=== PATIENT | male | born 1980 | race Caucasian/White ===

== ENCOUNTER 2019-04-03 14:25 | Emergency (ER) | payer OTHER, SELFPAY ==
[2019-04-03] MEDS ORDERED: NA CHLORIDE 0.9% 1,000 ML ONE ×2 (15:58→18:54)
[2019-04-03 16:16] LABS: Absolute Lymphocytes (CBC) 1.6 K/uL (0.7-4.9); Basophils % 0.6 % (0-1.3); Eosinophils % 0.2 % (0-4.4); Hematocrit 45.9 % (39.6-49.0); Lymphocytes % 15.9 % (15.3-44.8); MPV 8.4 fL (7.6-11.3); Monocytes % 8.8 % (3.3-12.3); RBC Red Blood Cell Count 4.97 M/uL (4.33-5.43)
[2019-04-03 16:21] LABS: Protime INR 1.08
[2019-04-03 16:42] LABS: ALT/SGPT 52 U/L (12-78); AST/SGOT 18 U/L (15-37); Albumin 4.7 g/dL (3.4-5.0); Alkaline Phosphatase 70 U/L (45-117); BUN Blood Urea Nitrogen 31 mg/dL (7-18); Bicarbonate 24 mmol/L (21-32); Bilirubin Direct 0.1 mg/dL (0-0.2); Bilirubin Total 0.6 mg/dL (0.2-1.0); Glucose Level 99 mg/dL (74-106); Potassium 3.5 mmol/L (3.5-5.1); Protein, Total 7.9 g/dL (6.4-8.2); Sodium Level 146 mmol/L (136-145)
[2019-04-03 16:45] LABS: Urine Blood NEGATIVE (NEG); Urine Glucose NEGATIVE (NEG); Urine Protein 2+ (NEG); Urine Specific Gravity >1.030 (1.005-1.030)
[2019-04-03 16:48] LABS: Lithium 0.2 mmol/L (0.6-1.2)
[2019-04-03 16:52] LABS: Salicylates Level < 1.7 mg/dL (2.8-20)
[2019-04-03 17:04] LABS: Barbiturates NEGATIVE (NEGATIVE); Benzodiazepines NEGATIVE (NEGATIVE); Cocaine NEGATIVE (NEGATIVE); METHAMPHETAM NEGATIVE (NEGATIVE); Methadone NEGATIVE (NEGATIVE); Opiates NEGATIVE (NEGATIVE); Phencyclidine NEGATIVE (NEGATIVE); THC Cannibis NEGATIVE (NEGATIVE)
[2019-04-03 17:09] LABS: Urine Bacteria <20 /HPF (NONE SEEN); Urine Culture Reflex Order NOT NEEDED; Urine Mucus 2+ /HPF (NONE SEEN); Urine RBC <5 /HPF (NONE SEEN)
--- NOTE | 2019-04-03 17:21 | RAD REPORT ---
EXAM DESCRIPTION: CT - Head Brain Wo Cont - 04/03/2019 5:16 pm CLINICAL HISTORY: PAIN Headache, drowsiness COMPARISON: No comparisons TECHNIQUE: All CT scans are performed using dose optimization technique as appropriate and may inclu de automated exposure control or mA/KV adjustment according to patient size. FINDINGS: No intracranial hemorrhage, hydrocephalus or extra-axial fluid collection.No areas of brai n edema or evidence of midline shift. The paranasal sinuses and mastoids are clear. The calvarium is intact. IMPRESSION: No acute intracranial abnormality.
[2019-04-03] MEDS ORDERED: lamoTRIgine 100 MG TAB PO ONE (19:00)
--- NOTE | 2019-04-04 09:37 | EKG ---
Test Date: 2019-04-03 Test Time: 16:06:10 Urologic Surgeon: OTTO MEASUREMENT RESULTS: Intervals: Rate: 97 IA: 140 QRSD: 80 QT: 358 QTc: 454 Premium: P: 53 IA: 140 QRS: 19 T: 0 INTERPRETIVE STATEMENTS: Normal sinus rhythm Possible Left atrial enlargement Borderline ECG No previous ECG available for comparison Electronically Signed On 04-04-19 09:35:48 CDT by Avni Whitney
[2019-04-04] MEDS ORDERED: SULFASALAZINE 500 MG E.C. TAB PO SCH (21:00)
[2019-04-04] MEDS ORDERED: LITHIUM CARBONATE 300 MG TAB PO SCH (21:00)
[2019-04-04] MEDS ORDERED: QUETIAPINE 100MG TAB PO SCH (21:00)
[2019-04-04] MEDS ORDERED: lamoTRIgine 100 MG TAB PO SCH (21:00)
[2019-04-05] MEDS ORDERED: FOLIC ACID 1 MG TABLET PO SCH (09:00)
[2019-04-05] MEDS ORDERED: LISINOPRIL 10 MG TAB PO SCH (09:00)
[2019-04-05] MEDS ORDERED: ACETAMINOPHEN 325 MG TABLET ONE (09:51)
--- NOTE | 2019-04-06 11:12 | ER ---
Nurse's Notes [facility] Name: Ravi Jaime Age: 38 yrs Sex: Male : 1980 Arrival Date: 04/03/2019 Time: 14:29 Bed 16 Private MD: Diagnosis: Altered mental status, unspecified;Schizoaffective disorder, unspecified Presentation: 04/03 14:48 Care prior to arrival: None. aa5 14:48 Presenting complaint: Presenting complaint: Pt's brother states "he was diagnosed with aa5 a schizoaffective disorder recently and was doing really good on his medicines for like a month but he stopped taking them and now he is all confused, I went to his house today and he didn't have any clothes on from the waist down and was acting confused". Pt currently alert and oriented x person at this time. 14:48 Transition of care: patient was not received from another setting of care. Onset of aa5 symptoms was April 03, 2019. 14:48 Acuity: GERALDINE 2 aa5 14:48 Method Of Arrival: Ambulatory aa5 15:17 Risk Assessment: Do you want to hurt yourself or someone else? Patient reports no mg2 desire to harm self or others. Initial Sepsis Screen: Does the patient meet any 2 criteria? No. Patient's initial sepsis screen is negative. Does the patient have a suspected source of infection? No. Patient's initial sepsis screen is negative. Historical: - Allergies: 14:56 No Known Allergies; aa5 - Home Meds: 14:56 sulfasalazine 500 mg Oral tab BID [Active]; lamotrigine 200 mg oral tab once daily aa5 [Active]; 04/04 14:28 lithium carbonate 300 mg oral cap 2 caps at night [Active]; Seroquel 100 mg oral tab sg 1.5 tab at night [Active]; 04/06 09:23 lisinopril 10 mg oral tab 1 tab once daily for Hypertension [Active]; omeprazole 40 mg tw2 oral cpDR 1 cap once daily [Active]; folic acid 1 mg oral tab 1 tab once daily [Active]; - PMHx: 04/03 14:56 Hypertension; Schizoaffective disorder; aa5 - Immunization history:: Adult Immunizations unknown. - Social history:: Smoking status: Patient/guardian denies using tobacco. - Ebola Screening: : No symptoms or risks identified at this time. Screenin:12 Abuse screen: Denies threats or abuse. Denies injuries from another. Nutritional mg2 screening: No deficits noted. Tuberculosis screening: No symptoms or risk factors identified. Fall Risk Secondary diagnosis (15 points) Schizoaffective disorder. Assessment: 15:15 General: Appears in no apparent distress. comfortable, Behavior is calm, cooperative. mg2 Pain: Denies pain. Neuro: Level of Consciousness is awake, alert, obeys commands, Oriented to person. Cardiovascular: Capillary refill < 3 seconds Patient's skin is warm and dry. Respiratory: Airway is patent Respiratory effort is even, unlabored, Respiratory pattern is regular, symmetrical. GI: No signs and/or symptoms were reported involving the gastrointestinal system. : No signs and/or symptoms were reported regarding the genitourinary system. EENT: No signs and/or symptoms were reported regarding the EENT system. Derm: Skin is intact, is healthy with good turgor, Skin is pink, warm \\T\\ dry. normal. Musculoskeletal: Circulation, motion, and sensation intact. Capillary refill < 3 seconds. 17:00 Reassessment: No changes from previously documented assessment. patient lying on bed. mg2 brother at bedside. 20:25 Reassessment: 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 family mg2 informed about the plan. 22:44 Reassessment: served dinner. patient ate his food with complete assistance by the mg2 sitter. not in distress. denies pain or any complaints. 22:46 Reassessment: [phone] ( brother). [facility] 23:57 Reassessment: [facility] and advised to be transferred to a psych facility. [facility] 04/04 07:18 Reassessment:. General: Appears comfortable. General: Patient is alert and oriented X 2 em5 (person and place ) able to recognize that it is morning time.. Cardiovascular: No deficits noted. Respiratory: No deficits noted. EENT: No deficits noted. 11:34 Reassessment: Patient verbalizing he wants to rest and sleep. Reoriented and directed em5 on how to lay down and void earlier. Fall precautions maintained.. 12:56 Reassessment: Patient is alert, oriented x 3, equal unlabored respirations, skin em5 warm/dry/pink. Patient denies pain at this time. Patient states feeling better. 12:56 General: Appears comfortable. em5 14:22 Reassessment: pt reports using [employer], notified. sg 15:19 Reassessment: Patient's home maintenance meds started as per Dr. Jensen. Home em5 medications reconciled. 18:34 Reassessment: Patient denies pain at this time. Endorsed to next shift that the em5 Lamictal, lithium and Seroquel are taken at bedtime. Patient's own meds endorsed or continuity of care. . General: Appears in no apparent distress. comfortable. 20:56 Reassessment: No changes from previously documented assessment. Patient is alert, la1 oriented x 3, equal unlabored respirations, skin warm/dry/pink. pt resting in stretcher, one-one sitter present. 23:23 Reassessment: Pt resting in stretcher, eyes closed resp even and unlabored. la1 04/05 02:54 Reassessment: Patient appears in no apparent distress at this time. No changes from la1 previously documented assessment. Patient and/or family updated on plan of care and expected duration. Pain level reassessed. 04:24 Reassessment: Patient appears in no apparent distress at this time. No changes from ch previously documented assessment. Patient and/or family updated on plan of care and expected duration. Pain level reassessed. pt asleep in bed, hob elevated. no s/s of distress. sitter at bedside. 06:24 Reassessment: Patient appears in no apparent distress at this time. No changes from ch previously documented assessment. 07:06 Reassessment: Patient appears in no apparent distress at this time. No changes from ab1 previously documented assessment. 07:22 Reassessment: Patient appears in no apparent distress at this time. ab1 07:30 Reassessment: Patient appears in no apparent distress at this time. General: Pt is ab1 sleeping with even respiration and unlabored breathing. 08:57 Reassessment: pt observed brushing his teeth and washing his hands independently at this time, pt able to get back into stretcher without assist. notified, will continue to monitor. 09:00 Reassessment: Patient appears in no apparent distress at this time. General: provided ab1 needs for personal hygiene and independently doing it.. 09:30 General: Reports headache, p/s 5/10, medicated as ordered. ab1 09:54 Reassessment: Patient appears in no apparent distress at this time. watching TV now, ab1 verbalized feeling better today. General: Appears comfortable, Behavior is calm, cooperative. 10:11 Reassessment: pt updated that family called and will discuss POC and possible discharge sg to home with ERP , awaiting family to arrive at this time, pt stated understanding, will continue to monitor. 10:43 Reassessment: pt verbalized some relief of headache. ab1 11:00 Reassessment: Patient appears in no apparent distress at this time. No changes from ab1 previously documented assessment. Patient is alert, oriented x 3, equal unlabored respirations, skin warm/dry/pink. Patient states feeling better. General: Appears comfortable, Behavior is calm, cooperative. 11:31 General: Appears in no apparent distress. comfortable, conversing with his visiting ab1 brother. 12:15 Reassessment: Patient appears in no apparent distress at this time. No changes from ab1 previously documented assessment. Patient is alert, oriented x 3, equal unlabored respirations, skin warm/dry/pink. Patient states feeling better. General: Appears in no apparent distress. comfortable, Behavior is calm, cooperative. Pain: Denies pain. 12:20 Reassessment: pt and pt brother discussing POC and possible discharge to home, pt sg brother requesting pt be seen by social media sr strategy manager for potential resources for assistance at home with ADL's and Medication use, will continue to monitor. 14:00 Reassessment: Patient appears in no apparent distress at this time. No changes from ab1 previously documented assessment. Patient is alert, oriented x 3, equal unlabored respirations, skin warm/dry/pink. Patient denies pain at this time. General: Behavior is calm, cooperative. 15:14 Reassessment: Patient appears in no apparent distress at this time. Patient is alert, ab1 oriented x 3, equal unlabored respirations, skin warm/dry/pink. Patient states feeling better. General: Behavior is calm, cooperative, sleeping this time. 16:03 Reassessment: Patient appears in no apparent distress at this time. No changes from ab1 previously documented assessment. 18:04 Reassessment: Patient appears in no apparent distress at this time. Patient states ab1 feeling better. General: Behavior is calm, cooperative, awake, watching TV. 19:05 Reassessment: Pt oriented x4 resting in stretcher, denies HI/SI, awaiting consult with la1 skilled nursing case manager in the morning. 20:50 Reassessment: Pt sitting in chair watching TV, denies any medical complaints, states he la1 knows the plan of treatment is to stay overnight and speak with skilled nursing case manager in the AM. 22:37 Reassessment: Patient appears in no apparent distress at this time. No changes from la1 previously documented assessment. Patient and/or family updated on plan of care and expected duration. Pain level reassessed. Patient is alert, oriented x 3, equal unlabored respirations, skin warm/dry/pink. 23:31 Reassessment: Patient appears in no apparent distress at this time. No changes from la1 previously documented assessment. Patient and/or family updated on plan of care and expected duration. Pain level reassessed. Patient is alert, oriented x 3, equal unlabored respirations, skin warm/dry/pink. 04/06 00:49 Reassessment: Patient appears in no apparent distress at this time. No changes from la1 previously documented assessment. Patient and/or family updated on plan of care and expected duration. Pain level reassessed. 03:00 Reassessment: Patient appears in no apparent distress at this time. Received this male cc3 patient from [facility]LEXANDR[facility], waiting to be seen by nurse case management in the morning as endorsed. Patient comfortably sleeping, kept undisturbed. 04:18 Reassessment: Patient appears in no apparent distress at this time. Patient sleeping, cc3 kept undisturbed. 05:40 Reassessment: Patient appears in no apparent distress at this time. Patient and/or cc3 family updated on plan of care and expected duration. Pain level reassessed. Patient is alert, oriented x 3, equal unlabored respirations, skin warm/dry/pink. Patient denies pain at this time. 06:25 Reassessment: Patient appears in no apparent distress at this time. Patient and/or cc3 family updated on plan of care and expected duration. Pain level reassessed. Patient is alert, oriented x 3, equal unlabored respirations, skin warm/dry/pink. Patient denies pain at this time. 07:59 Reassessment: spoke with pts brother, he can come up here late morning, i discussed tw2 with him that we feel his brother is at baseline and we would like to send him home, pts brother states that he had wanted the casework specialist to set up some sort of help at home to make sure he was taking his medicines. 08:30 Reassessment: Patient appears in no apparent distress at this time. No changes from tw2 previously documented assessment. Patient and/or family updated on plan of care and expected duration. Pain level reassessed. Patient is alert, oriented x 3, equal unlabored respirations, skin warm/dry/pink. Patient states feeling better. 09:19 Reassessment: Patient appears in no apparent distress at this time. No changes from tw2 previously documented assessment. Patient and/or family updated on plan of care and expected duration. Pain level reassessed. Patient is alert, oriented x 3, equal unlabored respirations, skin warm/dry/pink. 10:38 Reassessment: spoke with Fernanda, [employer], states she is unable to set up any Home iw Health services due to pt insurance status, will come down to bring a packet of community resources that pt's family can look in to. 10:56 Reassessment: social staff worker at bedside at this time. tw2 12:35 Reassessment: no answer at brothers phone #, message left for him to come supervisor opening and picking pt as tw2 he was being discharged at this time. 13:37 Reassessment: Patient appears in no apparent distress at this time. No changes from tw2 previously documented assessment. Patient and/or family updated on plan of care and expected duration. Pain level reassessed. Patient is alert, oriented x 3, equal unlabored respirations, skin warm/dry/pink. pts brother is at bedside at this time, agreeable to poc and states "i go check on my mom and he lives with her so i will check on him too". Vital Signs: 04/03 14:56 BP 147 / 90; Pulse 106; Resp 20 S; Temp 100.1(O); Pulse Ox 97% on R/A; aa5 15:00 Weight 97.3 kg (M); mg2 17:26 BP 121 / 81; Pulse 113; Resp 18; Temp 99.5(O); Pulse Ox 100% on R/A; mg2 18:20 BP 124 / 84; Pulse 100; Resp 18; Pulse Ox 98% on R/A; Pain 0/10; mg2 18:46 BP 124 / 83; Pulse 106; Resp 18; Pulse Ox 100% on R/A; mg2 19:25 BP 143 / 83; Pulse 100; Resp 18; Pulse Ox 98% on R/A; mg2 20:45 BP 112 / 94; Pulse 105; Resp 18; Temp 98; Pulse Ox 100% on R/A; mg2 22:48 Temp 98.5(A); mg2 04/04 02:30 BP 122 / 97; Pulse 111; Resp 20; Temp 98.5; Pulse Ox 97% on R/A; oe 07:03 BP 112 / 77; Pulse 100; Resp 20; Temp 97.8(TE); Pulse Ox 99% on R/A; Pain 0/10; em5 11:24 BP 138 / 110; Pulse 108; Resp 19; Temp 97.6; Pulse Ox 100% on R/A; Pain 0/10; em5 15:42 BP 140 / 102; Pulse 100; Resp 18; Temp 97.8; Pulse Ox 100% on R/A; Pain 0/10; em5 20:09 BP 118 / 79; Pulse 82; Resp 20; Temp 97.6; Pulse Ox 97% ; to 04/05 00:00 BP 112 / 69; Pulse 105; Resp 20; Temp 98; Pulse Ox 97% ; Pain 0/10; to 04:00 BP 114 / 63; Pulse 86; Resp 17; Temp 97.5; Pulse Ox 97% ; Pain 0/10; to 07:56 BP 124 / 84; Pulse 94; Resp 17; Temp 97.4; Pulse Ox 98% ; ab1 12:30 BP 130 / 84; Pulse 83; Resp 17; Temp 98.4; Pulse Ox 99% ; ab1 16:04 BP 128 / 85; Pulse 78; Resp 16; Temp 98.2; Pulse Ox 97% ; ab1 04/06 00:48 BP 115 / 74; Pulse 78; Resp 16; Temp 97.2(TE); Pulse Ox 98% on R/A; la1 06:40 BP 120 / 80; Pulse 83; Resp 17 S; Pulse Ox 97% on R/A; cc3 07:39 BP 118 / 85; Pulse 97; Resp 17; Temp 98.1(O); Pulse Ox 99% on R/A; mh5 08:24 BP 121 / 80; Pulse 103; Resp 17; Temp 97.9(O); Pulse Ox 100% on R/A; mh5 09:20 BP 117 / 70; Pulse 116; Resp 17; Temp 98.3(O); Pulse Ox 97% ; mh5 10:13 BP 119 / 88; Pulse 99; Resp 18; Temp 98.0(O); Pulse Ox 100% ; mh5 11:00 BP 124 / 75; Pulse 101; Resp 17; Temp 98.0(O); Pulse Ox 99% on R/A; mh5 12:08 BP 115 / 85; Pulse 94; Resp 17; Temp 98.6; Pulse Ox 98% on R/A; mh5 13:36 BP 120 / 84; Pulse 79; Resp 17; Pulse Ox 99% on R/A; tw2 ED Course: 04/03 14:29 Patient arrived in ED. rg4 14:48 Arm band placed on. aa5 14:53 Triage completed. aa5 14:58 Kris Krishnan, RN is Primary Nurse. mg2 15:16 No provider procedures requiring assistance completed. mg2 15:17 Patient has correct armband on for positive identification. mg2 15:27 Devin Pedraza PA is PHCP. cp 15:27 Brayden Jensen MD is Attending Physician. cp 16:02 Inserted saline lock: 20 gauge in right antecubital area, using aseptic technique. mg2 Blood collected. 16:34 Straight cath inserted, using sterile technique, Returned juan carlos urine. Patient mg2 tolerated poorly. 17:16 Head Brain Wo Cont In Process Unspecified. EDMS 21:00 Safety checks: Items removed: yes. Door open/sign placed on door: yes. Family/friend oe present: yes. Sitter present: Yes. 21:15 Safety checks: Items removed: yes. Door open/sign placed on door: yes. Family/friend oe present: no. Sitter present: Yes. 21:30 Safety checks: Items removed: yes. Door open/sign placed on door: yes. Family/friend oe present: no. Sitter present: Yes. 21:45 Safety checks: Items removed: yes. Door open/sign placed on door: yes. Family/friend oe present: no. Sitter present: Yes. 22:00 Safety checks: Items removed: yes. Door open/sign placed on door: yes. Family/friend oe present: no. Sitter present: Yes. 22:15 Safety checks: Items removed: yes. Door open/sign placed on door: yes. Family/friend oe present: no. Sitter present: Yes. 22:30 Safety checks: Items removed: yes. Door open/sign placed on door: yes. Family/friend oe present: no. Sitter present: Yes. 22:45 Safety checks: Items removed: yes. Door open/sign placed on door: yes. Family/friend oe present: no. Sitter present: Yes. 23:00 Safety checks: Items removed: yes. Door open/sign placed on door: yes. Family/friend oe present: no. Sitter present: Yes. 23:15 Safety checks: Items removed: yes. Door open/sign placed on door: yes. Family/friend oe present: no. Sitter present: Yes. 23:30 Safety checks: Items removed: yes. Door open/sign placed on door: yes. Family/friend oe present: no. Sitter present: Yes. 23:45 Safety checks: Items removed: yes. Door open/sign placed on door: yes. Family/friend oe present: no. Sitter present: Yes. 04/04 00:00 Safety checks: Items removed: yes. Door open/sign placed on door: yes. Family/friend oe present: no. Sitter present: Yes. 00:15 Safety checks: Items removed: yes. Door open/sign placed on door: yes. Family/friend oe present: no. Sitter present: Yes. 00:30 Safety checks: Items removed: yes. Door open/sign placed on door: yes. Family/friend oe present: no. Sitter present: Yes. 00:45 Safety checks: Items removed: yes. Door open/sign placed on door: yes. Family/friend oe present: no. Sitter present: Yes. 01:00 Safety checks: Items removed: yes. Door open/sign placed on door: yes. Family/friend oe present: no. Sitter present: Yes. 01:15 Safety checks: Items removed: yes. Door open/sign placed on door: yes. Family/friend oe present: no. Sitter present: Yes. 01:30 Safety checks: Items removed: no. Reason for not removing items: Door open/sign placed oe on door: yes. Family/friend present: no. Sitter present: Yes. 01:45 Safety checks: Items removed: yes. Door open/sign placed on door: yes. Family/friend oe present: no. Sitter present: Yes. 02:00 Safety checks: Items removed: yes. Door open/sign placed on door: yes. Family/friend oe present: no. Sitter present: Yes. 02:15 Safety checks: Items removed: yes. Door open/sign placed on door: yes. Family/friend oe present: no. Sitter present: Yes. 02:30 Safety checks: Items removed: yes. Door open/sign placed on door: yes. Family/friend oe present: no. Sitter present: Yes. 02:45 Safety checks: Items removed: yes. Door open/sign placed on door: yes. Family/friend oe present: no. Sitter present: Yes. 03:00 Safety checks: Items removed: yes. Door open/sign placed on door: yes. Family/friend oe present: no. Sitter present: Yes. 03:15 Safety checks: Items removed: yes. Door open/sign placed on door: yes. Family/friend oe present: no. Sitter present: Yes. 03:30 Safety checks: Items removed: yes. Door open/sign placed on door: yes. Family/friend oe present: no. Sitter present: Yes. 03:45 Safety checks: Items removed: yes. Door open/sign placed on door: no. Family/friend oe present: no. Sitter present: Yes. 04:00 Safety checks: Items removed: yes. Door open/sign placed on door: yes. Family/friend oe present: no. Sitter present: Yes. 04:15 Safety checks: Items removed: yes. Door open/sign placed on door: yes. Family/friend oe present: no. Sitter present: Yes. 04:30 Safety checks: Items removed: yes. Door open/sign placed on door: yes. Family/friend oe present: no. Sitter present: Yes. 04:45 Safety checks: Items removed: yes. Door open/sign placed on door: no. Family/friend oe present: no. Sitter present: Yes. 05:00 Safety checks: Items removed: yes. Door open/sign placed on door: yes. Family/friend oe present: no. Sitter present: Yes. 05:15 Safety checks: Items removed: yes. Door open/sign placed on door: yes. Family/friend oe present: no. Sitter present: Yes. 05:30 Safety checks: Items removed: yes. Door open/sign placed on door: yes. Family/friend oe present: no. Sitter present: Yes. 05:45 Safety checks: Items removed: yes. Door open/sign placed on door: yes. Family/friend oe present: no. Sitter present: Yes. 06:00 Safety checks: Items removed: yes. Door open/sign placed on door: yes. Family/friend oe present: no. Sitter present: Yes. 06:15 Safety checks: Items removed: yes. Door open/sign placed on door: yes. Family/friend oe present: no. Sitter present: Yes. 06:30 Safety checks: Items removed: yes. Door open/sign placed on door: yes. Family/friend oe present: no. Sitter present: Yes. 06:45 Safety checks: Items removed: yes. Door open/sign placed on door: yes. Family/friend oe present: no. Sitter present: Yes. 07:00 Safety Checks: Personal items have been removed. The door is open or patient has been em5 placed in a hallway bed/chair. There are no family/friend visitors at this time Sitter present at this time. 07:00 Safety checks: Items removed: yes. Door open/sign placed on door: yes. Family/friend oe present: no. Sitter present: Yes. 07:01 Acetaminophen Sent. em5 07:01 Basic Metabolic Panel Sent. em5 07:01 CBC with Diff Sent. em5 07:15 Resting quietly. Patient requests liquids. Patient given water. Safety Checks: Personal em5 items have been removed. The door is open or patient has been placed in a hallway bed/chair. There are no family/friend visitors at this time Sitter present at this time. 07:18 initiated transfer with Cathi from [facility]. ms 07:18 faxed clinical's to [facility], [facility], [facility], [facility], ms [facility], [facility], [facility], [facility], [facility], [facility]. 07:30 Safety Checks: Personal items have been removed. The door is open or patient has been em5 placed in a hallway bed/chair. There are no family/friend visitors at this time Sitter present at this time. 07:45 No apparent distress. Safety Checks: Personal items have been removed. The door is open em5 or patient has been placed in a hallway bed/chair. There are no family/friend visitors at this time Sitter present at this time. 08:00 Safety Checks: Personal items have been removed. The door is open or patient has been em5 placed in a hallway bed/chair. There are no family/friend visitors at this time Sitter present at this time. 08:15 Assisted with eating breakfast while watching tv. em5 08:15 Safety Checks: Personal items have been removed. The door is open or patient has been em5 placed in a hallway bed/chair. There are no family/friend visitors at this time Sitter present at this time. 08:30 Safety Checks: Personal items have been removed. The door is open or patient has been em5 placed in a hallway bed/chair. There are no family/friend visitors at this time Sitter present at this time. 08:45 Safety Checks: Personal items have been removed. The door is open or patient has been em5 placed in a hallway bed/chair. There are no family/friend visitors at this time Sitter present at this time. 08:[address] Jensen and patient agreed to be transferred to psych facility. em5 09:00 Safety Checks: Personal items have been removed. The door is open or patient has been em5 placed in a hallway bed/chair. There are no family/friend visitors at this time Sitter present at this time. 09:15 Assisted to the bathroom. Safety Checks: Personal items have been removed. The door is em5 open or patient has been placed in a hallway bed/chair. There are no family/friend visitors at this time Sitter present at this time. 09:30 Safety Checks: Personal items have been removed. The door is open or patient has been em5 placed in a hallway bed/chair. There are no family/friend visitors at this time Sitter present at this time. 09:45 Safety Checks: Personal items have been removed. The door is open or patient has been em5 placed in a hallway bed/chair. There are no family/friend visitors at this time Sitter present at this time. 10:00 Safety Checks: Personal items have been removed. The door is open or patient has been em5 placed in a hallway bed/chair. There are no family/friend visitors at this time Sitter present at this time. 10:15 Safety Checks: Personal items have been removed. The door is open or patient has been em5 placed in a hallway bed/chair. Sitter present at this time. 10:30 Patient's brother Tom visited. Safety Checks: Personal items have been removed. The em5 door is open or patient has been placed in a hallway bed/chair. A family member and/or friend is present and encouraged to stay. Sitter present at this time. 10:45 Safety Checks: Personal items have been removed. The door is open or patient has been em5 placed in a hallway bed/chair. There are no family/friend visitors at this time Sitter present at this time. 11:00 Safety Checks: Personal items have been removed. The door is open or patient has been em5 placed in a hallway bed/chair. There are no family/friend visitors at this time Sitter present at this time. 11:15 Safety Checks: Personal items have been removed. The door is open or patient has been em5 placed in a hallway bed/chair. There are no family/friend visitors at this time Sitter present at this time. 11:30 Safety Checks: Personal items have been removed. The door is open or patient has been em5 placed in a hallway bed/chair. There are no family/friend visitors at this time Sitter present at this time. 11:45 Safety Checks: Personal items have been removed. The door is open or patient has been em5 placed in a hallway bed/chair. There are no family/friend visitors at this time Sitter present at this time. 12:00 Safety Checks: Personal items have been removed. The door is open or patient has been em5 placed in a hallway bed/chair. There are no family/friend visitors at this time Sitter present at this time. 12:12 faxed clinical's to [facility] at this time. ms 12:15 Assisted in eating lunch tray. Safety Checks: Personal items have been removed. The em5 door is open or patient has been placed in a hallway bed/chair. There are no family/friend visitors at this time Sitter present at this time. 12:27 on waiting list for [facility]. ms 12:30 Safety Checks: Personal items have been removed. The door is open or patient has been em5 placed in a hallway bed/chair. There are no family/friend visitors at this time Sitter present at this time. 12:45 Safety Checks: Personal items have been removed. The door is open or patient has been em5 placed in a hallway bed/chair. There are no family/friend visitors at this time Sitter present at this time. 13:00 Safety Checks: Personal items have been removed. The door is open or patient has been em5 placed in a hallway bed/chair. There are no family/friend visitors at this time Sitter present at this time. 13:15 Safety Checks: Personal items have been removed. The door is open or patient has been em5 placed in a hallway bed/chair. There are no family/friend visitors at this time Sitter present at this time. 13:30 Safety Checks: Personal items have been removed. The door is open or patient has been em5 placed in a hallway bed/chair. 13:45 Safety Checks: Personal items have been removed. The door is open or patient has been em5 placed in a hallway bed/chair. There are no family/friend visitors at this time Sitter present at this time. 14:00 Safety Checks: Personal items have been removed. The door is open or patient has been em5 placed in a hallway bed/chair. There are no family/friend visitors at this time Sitter present at this time. 14:15 Safety Checks: Personal items have been removed. The door is open or patient has been em5 placed in a hallway bed/chair. There are no family/friend visitors at this time Sitter present at this time. 14:30 Safety Checks: Personal items have been removed. The door is open or patient has been em5 placed in a hallway bed/chair. There are no family/friend visitors at this time Sitter present at this time. 14:45 Safety Checks: Personal items have been removed. The door is open or patient has been em5 placed in a hallway bed/chair. There are no family/friend visitors at this time Sitter present at this time. 15:00 Safety Checks: Personal items have been removed. The door is open or patient has been em5 placed in a hallway bed/chair. There are no family/friend visitors at this time Sitter present at this time. 15:15 Safety Checks: Personal items have been removed. The door is open or patient has been em5 placed in a hallway bed/chair. There are no family/friend visitors at this time Sitter present at this time. 15:30 Safety Checks: Personal items have been removed. The door is open or patient has been em5 placed in a hallway bed/chair. There are no family/friend visitors at this time Sitter present at this time. 15:45 Safety Checks: Personal items have been removed. The door is open or patient has been em5 placed in a hallway bed/chair. There are no family/friend visitors at this time Sitter present at this time. 16:00 Safety Checks: Personal items have been removed. The door is open or patient has been em5 placed in a hallway bed/chair. There are no family/friend visitors at this time Sitter present at this time. 16:15 Safety Checks: Personal items have been removed. The door is open or patient has been em5 placed in a hallway bed/chair. There are no family/friend visitors at this time Sitter present at this time. 16:30 Safety Checks: Personal items have been removed. The door is open or patient has been em5 placed in a hallway bed/chair. There are no family/friend visitors at this time Sitter present at this time. 16:45 Safety Checks: Personal items have been removed. The door is open or patient has been em5 placed in a hallway bed/chair. There are no family/friend visitors at this time Sitter present at this time. 17:00 Safety Checks: Personal items have been removed. The door is open or patient has been em5 placed in a hallway bed/chair. There are no family/friend visitors at this time Sitter present at this time. 17:15 Safety Checks: Personal items have been removed. The door is open or patient has been em5 placed in a hallway bed/chair. There are no family/friend visitors at this time Sitter present at this time. 17:30 Safety Checks: Personal items have been removed. The door is open or patient has been em5 placed in a hallway bed/chair. There are no family/friend visitors at this time Sitter present at this time. 17:45 Safety Checks: Personal items have been removed. The door is open or patient has been em5 placed in a hallway bed/chair. There are no family/friend visitors at this time Sitter present at this time. 18:00 Safety Checks: Personal items have been removed. The door is open or patient has been em5 placed in a hallway bed/chair. There are no family/friend visitors at this time Sitter present at this time. 18:15 Safety Checks: Personal items have been removed. The door is open or patient has been em5 placed in a hallway bed/chair. There are no family/friend visitors at this time Sitter present at this time. 18:30 No apparent distress. Appears to be sleeping. Safety Checks: Personal items have been em5 removed. The door is open or patient has been placed in a hallway bed/chair. There are no family/friend visitors at this time Sitter present at this time. 18:45 Safety Checks: Personal items have been removed. The door is open or patient has been em5 placed in a hallway bed/chair. There are no family/friend visitors at this time Sitter present at this time. 19:00 Safety Checks: Personal items have been removed. The door is open or patient has been em5 placed in a hallway bed/chair. There are no family/friend visitors at this time Sitter present at this time. 19:16 Safety checks: Items removed: yes. Door open/sign placed on door: yes. Family/friend to present: no. Sitter present: Yes. 19:31 Safety checks: Items removed: yes. Door open/sign placed on door: yes. Family/friend to present: no. Sitter present: Yes. 19:45 Safety checks: Items removed: yes. Door open/sign placed on door: yes. Family/friend to present: no. Sitter present: Yes. 19:59 Safety checks: Items removed: yes. Door open/sign placed on door: yes. Family/friend to present: no. Sitter present: Yes. 20:17 Safety checks: Items removed: yes. Door open/sign placed on door: yes. Family/friend to present: no. Sitter present: Yes. 20:30 Safety checks: Items removed: yes. Door open/sign placed on door: yes. Family/friend to present: no. Sitter present: Yes. 20:45 Safety checks: Items removed: yes. Door open/sign placed on door: yes. Family/friend to present: no. Sitter present: Yes. 21:02 Safety checks: Items removed: yes. Door open/sign placed on door: yes. Family/friend to present: no. Sitter present: Yes. 21:14 Safety checks: Items removed: yes. Door open/sign placed on door: yes. Family/friend to present: no. Sitter present: Yes. 21:29 Safety checks: Items removed: yes. Door open/sign placed on door: yes. Family/friend to present: no. Sitter present: Yes. 21:45 Safety checks: Items removed: yes. Door open/sign placed on door: yes. Family/friend to present: no. Sitter present: Yes. 22:00 Safety checks: Items removed: yes. Door open/sign placed on door: yes. Family/friend to present: no. Sitter present: Yes. 22:19 Safety checks: Items removed: yes. Door open/sign placed on door: yes. Family/friend to present: no. Sitter present: Yes. 22:30 Safety checks: Items removed: yes. Door open/sign placed on door: yes. Family/friend to present: no. Sitter present: Yes. 23:02 Safety checks: Items removed: yes. Door open/sign placed on door: yes. Family/friend to present: no. Sitter present: Yes. 23:15 Safety checks: Items removed: yes. Door open/sign placed on door: yes. Family/friend to present: no. Sitter present: Yes. 23:30 Safety checks: Items removed: yes. Door open/sign placed on door: yes. Family/friend to present: no. Sitter present: Yes. 23:45 Safety checks: Items removed: yes. Door open/sign placed on door: yes. Family/friend to present: no. Sitter present: Yes. 23:59 Safety checks: Items removed: yes. Door open/sign placed on door: yes. Family/friend to present: no. Sitter present: Yes. 04/05 00:16 Safety checks: Items removed: yes. Door open/sign placed on door: yes. Family/friend to present: no. Sitter present: Yes. 00:30 Safety checks: Items removed: yes. Door open/sign placed on door: yes. Family/friend to present: no. Sitter present: Yes. 00:45 Safety checks: Items removed: yes. Door open/sign placed on door: yes. Family/friend to present: no. Sitter present: Yes. 01:00 Safety checks: Items removed: yes. Door open/sign placed on door: yes. Family/friend to present: no. Sitter present: Yes. 01:17 Safety checks: Items removed: yes. Door open/sign placed on door: yes. Family/friend to present: no. Sitter present: Yes. 01:30 Safety checks: Items removed: yes. Door open/sign placed on door: yes. Family/friend to present: no. Sitter present: Yes. 01:44 Safety checks: Items removed: yes. Door open/sign placed on door: yes. Family/friend to present: no. Sitter present: Yes. 02:00 Safety checks: Items removed: yes. Door open/sign placed on door: yes. Family/friend to present: no. Sitter present: Yes. 02:21 Safety checks: Items removed: yes. Door open/sign placed on door: yes. Family/friend to present: no. Sitter present: Yes. 02:36 Safety checks: Items removed: yes. Door open/sign placed on door: yes. Family/friend to present: no. Sitter present: Yes. 02:46 Safety checks: Items removed: yes. Door open/sign placed on door: yes. Family/friend to present: no. Sitter present: Yes. 02:58 Safety checks: Items removed: yes. Door open/sign placed on door: yes. Family/friend to present: no. Sitter present: Yes. 02:59 Primary Nurse role handed off by Kris Krishnan, ALEXANDRA 02:59 Diana Meneses, ALEXANDRA is Primary Nurse. 03:15 Safety checks: Items removed: yes. Door open/sign placed on door: yes. Family/friend to present: no. Sitter present: Yes. 03:30 Safety checks: Items removed: yes. Door open/sign placed on door: yes. Family/friend to present: no. Sitter present: Yes. 03:45 Safety checks: Items removed: yes. Door open/sign placed on door: yes. Family/friend to present: no. Sitter present: Yes. 04:00 Safety checks: Items removed: yes. Door open/sign placed on door: yes. Family/friend to present: no. Sitter present: Yes. 04:15 Safety checks: Items removed: yes. Door open/sign placed on door: yes. Family/friend to present: no. Sitter present: Yes. 04:31 Safety checks: Items removed: yes. Door open/sign placed on door: yes. Family/friend to present: no. Sitter present: Yes. 04:44 Safety checks: Items removed: yes. Door open/sign placed on door: yes. Family/friend to present: no. Sitter present: Yes. 05:00 Safety checks: Items removed: yes. Door open/sign placed on door: yes. Family/friend to present: no. Sitter present: Yes. 05:15 Safety checks: Items removed: yes. Door open/sign placed on door: yes. Family/friend to present: no. Sitter present: Yes. 05:30 Safety checks: Items removed: yes. Door open/sign placed on door: yes. Family/friend to present: no. Sitter present: Yes. 05:45 Safety checks: Items removed: yes. Door open/sign placed on door: yes. Family/friend to present: no. Sitter present: Yes. 06:00 Safety checks: Items removed: yes. Door open/sign placed on door: yes. Family/friend to present: no. Sitter present: Yes. 06:16 Safety checks: Items removed: yes. Door open/sign placed on door: yes. Family/friend to present: no. Sitter present: Yes. 06:30 Safety checks: Items removed: yes. Door open/sign placed on door: yes. Family/friend to present: no. Sitter present: Yes. 06:45 Safety checks: Items removed: yes. Door open/sign placed on door: yes. Family/friend to present: no. Sitter present: Yes. 07:02 Report given to Rm Chou 07:03 Primary Nurse role handed off by Diana Meneses RN 07:10 Patient has correct armband on for positive identification. ab1 07:32 Safety Checks: Personal items have been removed. The door is open or patient has been ab1 placed in a hallway bed/chair. Sitter present at this time. 07:43 Safety Checks: Personal items have been removed. The door is open or patient has been ab1 placed in a hallway bed/chair. There are no family/friend visitors at this time Sitter present at this time. 08:00 Provided water to drink and assisted pt to the restroom. ab1 08:17 No apparent distress. Eating breakfast now. ab1 08:31 Safety Checks: Personal items have been removed. The door is open or patient has been ab1 placed in a hallway bed/chair. There are no family/friend visitors at this time Sitter present at this time. 08:44 No apparent distress. ab1 08:45 Safety Checks: Personal items have been removed. The door is open or patient has been ab1 placed in a hallway bed/chair. There are no family/friend visitors at this time Sitter present at this time. 08:47 Diet: Tolerated well. ab1 08:56 Oral care given. ab1 09:00 No apparent distress. Resting quietly. Safety Checks: Personal items have been removed. ab1 The door is open or patient has been placed in a hallway bed/chair. There are no family/friend visitors at this time Sitter present at this time. 09:13 repositioned to comfort. Linen changed. ab1 09:18 No apparent distress. Resting quietly. Safety Checks: Personal items have been removed. ab1 The door is open or patient has been placed in a hallway bed/chair. There are no family/friend visitors at this time Sitter present at this time. 09:40 No apparent distress. Safety Checks: Personal items have been removed. The door is open ab1 or patient has been placed in a hallway bed/chair. There are no family/friend visitors at this time Sitter present at this time. 09:41 medicated for headache, p/s 01/23. ab1 09:45 Safety Checks: Personal items have been removed. The door is open or patient has been ab1 placed in a hallway bed/chair. There are no family/friend visitors at this time Sitter present at this time. 10:02 [address] TV. Safety Checks: Personal items have been removed. The door is open or ab1 patient has been placed in a hallway bed/chair. There are no family/friend visitors at this time Sitter present at this time. 10:15 Safety Checks: Personal items have been removed. The door is open or patient has been ab1 placed in a hallway bed/chair. There are no family/friend visitors at this time Sitter present at this time. 10:30 Safety Checks: Personal items have been removed. The door is open or patient has been ab1 placed in a hallway bed/chair. There are no family/friend visitors at this time Sitter present at this time. 10:30 Assisted to bathroom. Repositioned patient. ab1 10:45 Resting quietly. Safety Checks: Personal items have been removed. The door is open or ab1 patient has been placed in a hallway bed/chair. There are no family/friend visitors at this time. 11:00 Resting quietly. watching TV. Safety Checks: Personal items have been removed. The door ab1 is open or patient has been placed in a hallway bed/chair. There are no family/friend visitors at this time Sitter present at this time. 11:15 Safety Checks: Personal items have been removed. The door is open or patient has been ab1 placed in a hallway bed/chair. There are no family/friend visitors at this time Sitter present at this time. 11:16 Bed in low position. Sitter at bedside. ab1 11:30 Safety Checks: Personal items have been removed. The door is open or patient has been ab1 placed in a hallway bed/chair. A family member and/or friend is present and encouraged to stay. Sitter present at this time. 11:45 No apparent distress. Safety Checks: Personal items have been removed. The door is open ab1 or patient has been placed in a hallway bed/chair. There are no family/friend visitors at this time Sitter present at this time. 12:00 Safety Checks: Personal items have been removed. The door is open or patient has been ab1 placed in a hallway bed/chair. There are no family/friend visitors at this time Sitter present at this time. 12:00 Diet tray given. PO fluids given. ab1 12:15 Safety Checks: Personal items have been removed. The door is open or patient has been ab1 placed in a hallway bed/chair. There are no family/friend visitors at this time Sitter present at this time. 12:30 Safety Checks: Personal items have been removed. The door is open or patient has been ab1 placed in a hallway bed/chair. There are no family/friend visitors at this time Sitter present at this time. 12:45 Safety Checks: Personal items have been removed. The door is open or patient has been ab1 placed in a hallway bed/chair. There are no family/friend visitors at this time Sitter present at this time. 13:00 Safety Checks: Personal items have been removed. The door is open or patient has been ab1 placed in a hallway bed/chair. There are no family/friend visitors at this time Sitter present at this time. 13:11 PO fluids given. Assisted to bathroom. Repositioned patient. ab1 13:15 Safety Checks: Personal items have been removed. The door is open or patient has been ab1 placed in a hallway bed/chair. There are no family/friend visitors at this time Sitter present at this time. 13:30 Resting quietly. Safety Checks: Personal items have been removed. The door is open or ab1 patient has been placed in a hallway bed/chair. There are no family/friend visitors at this time Sitter present at this time. 13:45 Safety Checks: Personal items have been removed. The door is open or patient has been ab1 placed in a hallway bed/chair. There are no family/friend visitors at this time Sitter present at this time. 14:00 Safety Checks: Personal items have been removed. The door is open or patient has been ab1 placed in a hallway bed/chair. There are no family/friend visitors at this time Sitter present at this time. 14:15 Safety Checks: Personal items have been removed. The door is open or patient has been ab1 placed in a hallway bed/chair. There are no family/friend visitors at this time Sitter present at this time. 14:30 No apparent distress. Safety Checks: Personal items have been removed. The door is open ab1 or patient has been placed in a hallway bed/chair. There are no family/friend visitors at this time Sitter present at this time. 14:45 Safety Checks: Personal items have been removed. The door is open or patient has been ab1 placed in a hallway bed/chair. There are no family/friend visitors at this time Sitter present at this time. 14:54 requested for apple juice-provided. Assisted to bathroom. Repositioned patient. ab1 15:00 Safety Checks: Personal items have been removed. The door is open or patient has been ab1 placed in a hallway bed/chair. There are no family/friend visitors at this time Sitter present at this time. 15:30 Safety Checks: Personal items have been removed. The door is open or patient has been ab1 placed in a hallway bed/chair. There are no family/friend visitors at this time Sitter present at this time. 15:34 Bed in low position. sleeping this time. ab1 15:48 Resting quietly. Safety Checks: Personal items have been removed. The door is open or ab1 patient has been placed in a hallway bed/chair. There are no family/friend visitors at this time Sitter present at this time. 16:04 Safety Checks: Personal items have been removed. The door is open or patient has been ab1 placed in a hallway bed/chair. There are no family/friend visitors at this time Sitter present at this time. 16:28 Safety Checks: Personal items have been removed. The door is open or patient has been ab1 placed in a hallway bed/chair. There are no family/friend visitors at this time Sitter present at this time. 16:45 No apparent distress. Safety Checks: Personal items have been removed. The door is open ab1 or patient has been placed in a hallway bed/chair. There are no family/friend visitors at this time Sitter present at this time. 17:00 Safety Checks: Personal items have been removed. The door is open or patient has been ab1 placed in a hallway bed/chair. There are no family/friend visitors at this time Sitter present at this time. 17:15 Safety Checks: Personal items have been removed. The door is open or patient has been ab1 placed in a hallway bed/chair. There are no family/friend visitors at this time Sitter present at this time. 17:30 Safety Checks: Personal items have been removed. The door is open or patient has been ab1 placed in a hallway bed/chair. There are no family/friend visitors at this time Sitter present at this time. 17:45 Safety Checks: Personal items have been removed. The door is open or patient has been ab1 placed in a hallway bed/chair. There are no family/friend visitors at this time Sitter present at this time. 17:53 Diet tray given. PO fluids given. ab1 18:00 No apparent distress. Safety Checks: Personal items have been removed. The door is open ab1 or patient has been placed in a hallway bed/chair. There are no family/friend visitors at this time Sitter present at this time. 18:06 Diet: Tolerated well provided juice to drink as pt requested. ab1 18:15 Safety Checks: Personal items have been removed. The door is open or patient has been ab1 placed in a hallway bed/chair. There are no family/friend visitors at this time Sitter present at this time. 18:30 Safety Checks: Personal items have been removed. The door is open or patient has been ab1 placed in a hallway bed/chair. There are no family/friend visitors at this time Sitter present at this time. 18:30 Intake oral 1800 ml, Urination 10x, no BM made this shift. ab1 18:45 Safety Checks: Personal items have been removed. The door is open or patient has been ab1 placed in a hallway bed/chair. There are no family/friend visitors at this time Sitter present at this time. 19:00 No apparent distress. Safety Checks: Personal items have been removed. The door is open ab1 or patient has been placed in a hallway bed/chair. There are no family/friend visitors at this time Sitter present at this time. 19:05 Papito Gamez RN is Primary Nurse. la1 07/22 07:00 Report given to ALEXANDRA Trent. cc3 07:01 Primary Nurse role handed off by Papito Gamez RN tw2 07:01 Miley Zuleta RN is Primary Nurse. tw2 11:00 Awaiting transportation, Awaiting: prior to discharge. tw2 13:39 IV discontinued, intact, bleeding controlled, No redness/swelling at site. Pressure tw2 dressing applied. Administered Medications: 04/03 16:02 Drug: NS 0.9% 1000 ml Route: IV; Rate: 1 bolus; Site: right antecubital; mg2 23:06 Follow up: Response: No adverse reaction; IV Status: Completed infusion; IV Intake: mg2 1000ml 18:45 Drug: NS 0.9% 1000 ml Route: IV; Rate: 1 bolus; Site: right antecubital; mg2 23:05 Follow up: Response: No adverse reaction; IV Status: Completed infusion; IV Intake: mg2 1000ml 18:46 Drug: LaMICtal 200 mg Route: PO; mg2 23:05 Follow up: Response: No adverse reaction mg2 23:05 Drug: SEROquel 500 mg Route: PO; mg2 04/04 20:59 Follow up: Response: No adverse reaction la1 15:34 Drug: Lisinopril 10 mg {Note: used patient's own meds.} Route: PO; em5 20:58 Follow up: Response: No adverse reaction la1 15:34 Drug: sulfaSALAzine 500 mg {Note: used patient own meds.} Route: PO; em5 20:58 Follow up: Response: No adverse reaction la1 15:35 Drug: foLIC Acid 1 mg {Note: used patient's own meds.} Route: PO; em5 20:58 Follow up: Response: No adverse reaction la1 21:39 Drug: LaMICtal 200 mg Route: PO; la1 04/05 00:51 Follow up: Response: No adverse reaction la1 04/04 21:39 Drug: SEROquel 400 mg Route: PO; la1 04/05 00:51 Follow up: Response: No adverse reaction la1 04/04 21:39 Drug: Ferguson 300 mg Route: PO; la1 04/05 00:50 Follow up: Response: No adverse reaction la1 08:35 Drug: foLIC Acid 1 mg Route: PO; ab1 08:35 Drug: omeprazole 40 mg Route: PO; ab1 08:36 Drug: Lisinopril 10 mg Route: PO; ab1 08:37 Drug: sulfaSALAzine 500 mg Route: PO; ab1 09:39 Drug: Tylenol 650 mg {Note: pt complained of head ache P/s 5/10.} Route: PO; ab1 21:22 Drug: [place] 300 mg Route: PO; la1 23:34 Follow up: Response: No adverse reaction la1 21:23 Drug: SEROquel 400 mg Route: PO; la1 23:34 Follow up: Response: No adverse reaction la1 21:23 Drug: LaMICtal 200 mg Route: PO; la1 23:35 Follow up: Response: No adverse reaction la1 04/06 09:10 Drug: Lisinopril 10 mg {Note: pts own medication.} Route: PO; tw2 10:10 Follow up: Response: No adverse reaction tw2 09:10 Drug: foLIC Acid 1 mg {Note: pts own medication.} Route: PO; tw2 10:10 Follow up: Response: No adverse reaction tw2 09:10 Drug: omeprazole 40 mg {Note: pts own medication.} Route: PO; tw2 19:02 Follow up: Response: No adverse reaction tw2 09:10 Drug: sulfaSALAzine 500 mg {Note: Pts own medication.} Route: PO; tw2 10:10 Follow up: Response: No adverse reaction tw2 Intake: 04/03 23:05 IV: 1000ml; Total: 1000ml. mg2 23:06 IV: 1000ml; Total: 2000ml. mg2 Outcome: 04/06 11:09 Discharge ordered by rn 13:38 Discharged to home ambulatory, with family. tw2 13:38 Condition: stable 13:38 Discharge instructions given to patient, family, Instructed on discharge instructions, follow up and referral plans. Demonstrated understanding of instructions, follow-up care. 13:39 Patient left the ED. tw2 Signatures: Dispatcher [employer] EDMS Diana Meneses RN RN ch Gay, Steven, RN RN sg Williams, Irene, RN RN iw Solis, Maria ms Nieto, Roman, MD MD rn Calderon, Audri, RN RN aa5 Papito Gamez RN RN la1 Devin Pedraza PA PA cp Wise, Tara, RN RN tw2 Cony Thomson rg4 Ash Chaparro Maria 5 Kris Krishnan, RN RN mg2 Jerilyn Jones cc3 Corry Jimenez ab1 Sri Rivera em5 Cindy Arellano to Corrections: (The following items were deleted from the chart) 04/03 14:57 14:48 Presenting complaint: Pt's brother states "he was diagnosed with a aa5 schizoaffective disorder recently and was doing really good on his medicines for like a month but he stopped taking them and now he is all confused, I went to his house today and he didn't have any clothes on from the waist down and was acting confused" Presenting complaint: Pt's brother states "he was diagnosed with a schizoaffective disorder recently and was doing really good on his medicines for like a month but he stopped taking them and now he is all confused, I went to his house today and he didn't have any clothes on from the waist down and was acting confused" aa5 17:30 17:26 Pulse 113bpm; Resp 18bpm; Pulse Ox 100% RA; Temp 99.5F Oral; mg2 mg2 20:27 20:25 Reassessment: 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 mg2mg2 22:47 16:02 Inserted saline lock: 20 gauge in left antecubital area, using aseptic technique. mg2 Blood collected. mg2 04/04 05:10 05:09 Safety checks: Items removed: yes. Door open/sign placed on door: yes. oe Family/friend present: no. Sitter present: Yes. oe 07:32 07:03 BP 112 / 77; Pulse 100bpm; Resp 20bpm; Pulse Ox 99% RA; Temp 97.8F Temporal; em5 em5 14:28 04/03 14:56 Home Meds: [place] Carbonate Oral; aa5 sg 04/04 14:28 04/03 14:56 Home Meds: Seroquel Oral; aa5 sg 04/05 09:18 08:47 Diet: Tolerated well ab1 ab1 16:39 16:28 No apparent distress. ab1 ab1 16:39 16:28 Safety Checks: Personal items have been removed. The door is open or patient has ab1 been placed in a hallway bed/chair. There are no family/friend visitors at this time Sitter present at this time. ab1 18:48 18:10 Intake oral 1800 ml, Urination 8x, no BM made this shift ab1 ab1 04/06 04:12 03:00 Reassessment: Patient appears in no apparent distress at this time. Patient cc3 comfortably sleeping, kept undisturbed. cc3 : 03:00 Reassessment: Patient appears in no apparent distress at this time. Received this cc3 male patient from ALEXANDRA Cobos. Patient comfortably sleeping, kept undisturbed. cc3 :04/03 14:56 Home Meds: Lisinopril Oral; aa5 04/06 09:04/03 14:56 Home Meds: Omeprazole Oral; aa5 04/06 09:04/03 14:56 Home Meds: Folic Acid Oral; aa5 04/06 12:34 12:00 Awaiting transportation, Awaiting: prior to discharge.
--- NOTE | 2019-04-06 11:12 | EDPHYS ---
Physician Documentation [facility] Name: Rvai Jaime Age: 38 yrs Sex: Male : 1980 Arrival Date: 04/03/2019 Time: 14:29 Bed 16 Private MD: ED Physician Brayden Jensen HPI: 04/03 15:44 This 38 yrs old Male presents to ER via Ambulatory with complaints of Altered cp Mental Status. 15:45 The patient presents to the emergency department with altered mental status. cp 15:45 Onset: The symptoms/episode began/occurred at an unknown time. Past psychiatric cp history: Prior diagnosis: schizophrenia, Psychiatric medications include: Seroquel, Lamotrigine, the patient has a previous inpatient psychiatric history, last month. The patient presents with disorientation, to time. Possible causes: not taking prescribed medications. Patient's baseline: Neuro: alert and fully oriented, Motor: no deficits, Ambulation: walks without assistance, Speech: normal. 15:45 Current symptoms: In the emergency department the patient's symptoms are unchanged from cp the initial presentation, despite home interventions. Historical: - Allergies: 14:56 No Known Allergies; aa5 - Home Meds: 14:56 sulfasalazine 500 mg Oral tab BID [Active]; lamotrigine 200 mg oral tab once daily aa5 [Active]; 04/04 14:28 lithium carbonate 300 mg oral cap 2 caps at night [Active]; Seroquel 100 mg oral tab sg 1.5 tab at night [Active]; 04/06 09:23 lisinopril 10 mg oral tab 1 tab once daily for Hypertension [Active]; omeprazole 40 mg tw2 oral cpDR 1 cap once daily [Active]; folic acid 1 mg oral tab 1 tab once daily [Active]; - PMHx: 04/03 14:56 Hypertension; Schizoaffective disorder; aa5 - Immunization history:: Adult Immunizations unknown. - Social history:: Smoking status: Patient/guardian denies using tobacco. - Ebola Screening: : No symptoms or risks identified at this time. ROS: 16:00 Constitutional: Negative for fever. cp 16:00 Eyes: Negative for redness. cp 16:00 Cardiovascular: Negative for chest pain. 16:00 Neuro: Positive for altered mental status. 16:00 Psych: Negative for auditory hallucinations, visual hallucinations, homicidal ideation, suicidal ideation. 16:00 Unable to obtain ROS due to altered mental status. Exam: 16:05 Constitutional: The patient appears in no acute distress, alert, awake, cp non-diaphoretic, non-toxic, well developed, well nourished. 16:05 Head/Face: Normocephalic, atraumatic. cp 16:05 Eyes: Periorbital structures: appear normal, Pupils: equal, round, and reactive to light and accomodation, Extraocular movements: intact throughout, Conjunctiva: normal, no exudate, no injection, Sclera: no appreciated abnormality, Lids and lashes: appear normal, bilaterally. 16:05 ENT: External ear(s): are unremarkable, Ear canal(s): are normal, clear, TM's: dullness, bilaterally, Nose: is normal, Mouth: Lips: moist, Oral mucosa: pink and intact, moist, Posterior pharynx: is normal, airway is patent, no erythema, no exudate. 16:05 Neck: ROM/movement: is normal, is supple, without pain, no range of motions limitations, no meningismus, no nuchal rigidity. 16:05 Chest/axilla: Inspection: normal, Palpation: is normal, no crepitus, no tenderness. 16:05 Cardiovascular: Rate: tachycardic, Rhythm: regular, Edema: is not appreciated, JVD: is not appreciated. 16:05 Respiratory: the patient does not display signs of respiratory distress, Respirations: normal, no use of accessory muscles, no retractions, no splinting, no tachypnea, labored breathing, is not present, Breath sounds: are clear throughout, no decreased breath sounds, no stridor, no wheezing. 16:05 Abdomen/GI: Inspection: abdomen appears normal, Palpation: abdomen is soft and non-tender, in all quadrants. 16:05 Neuro: Orientation: to person, situation, Not oriented to time, Mentation: slow to respond. 16:05 Psych: Behavior/mood is cooperative, Affect is calm, Patient has no thoughts/intents to harm self or others. Delusions/hallucinations are not present. 16:11 ECG was reviewed by the Attending Physician. cp Vital Signs: 14:56 BP 147 / 90; Pulse 106; Resp 20 S; Temp 100.1(O); Pulse Ox 97% on R/A; aa5 15:00 Weight 97.3 kg (M); mg2 17:26 BP 121 / 81; Pulse 113; Resp 18; Temp 99.5(O); Pulse Ox 100% on R/A; mg2 18:20 BP 124 / 84; Pulse 100; Resp 18; Pulse Ox 98% on R/A; Pain 0/10; mg2 18:46 BP 124 / 83; Pulse 106; Resp 18; Pulse Ox 100% on R/A; mg2 19:25 BP 143 / 83; Pulse 100; Resp 18; Pulse Ox 98% on R/A; mg2 20:45 BP 112 / 94; Pulse 105; Resp 18; Temp 98; Pulse Ox 100% on R/A; mg2 22:48 Temp 98.5(A); mg2 04/04 02:30 BP 122 / 97; Pulse 111; Resp 20; Temp 98.5; Pulse Ox 97% on R/A; oe 07:03 BP 112 / 77; Pulse 100; Resp 20; Temp 97.8(TE); Pulse Ox 99% on R/A; Pain 0/10; em5 11:24 BP 138 / 110; Pulse 108; Resp 19; Temp 97.6; Pulse Ox 100% on R/A; Pain 0/10; em5 15:42 BP 140 / 102; Pulse 100; Resp 18; Temp 97.8; Pulse Ox 100% on R/A; Pain 0/10; em5 20:09 BP 118 / 79; Pulse 82; Resp 20; Temp 97.6; Pulse Ox 97% ; to 04/05 00:00 BP 112 / 69; Pulse 105; Resp 20; Temp 98; Pulse Ox 97% ; Pain 0/10; to 04:00 BP 114 / 63; Pulse 86; Resp 17; Temp 97.5; Pulse Ox 97% ; Pain 0/10; to 07:56 BP 124 / 84; Pulse 94; Resp 17; Temp 97.4; Pulse Ox 98% ; ab1 12:30 BP 130 / 84; Pulse 83; Resp 17; Temp 98.4; Pulse Ox 99% ; ab1 16:04 BP 128 / 85; Pulse 78; Resp 16; Temp 98.2; Pulse Ox 97% ; ab1 04/06 00:48 BP 115 / 74; Pulse 78; Resp 16; Temp 97.2(TE); Pulse Ox 98% on R/A; la1 06:40 BP 120 / 80; Pulse 83; Resp 17 S; Pulse Ox 97% on R/A; cc3 07:39 BP 118 / 85; Pulse 97; Resp 17; Temp 98.1(O); Pulse Ox 99% on R/A; mh5 08:24 BP 121 / 80; Pulse 103; Resp 17; Temp 97.9(O); Pulse Ox 100% on R/A; mh5 09:20 BP 117 / 70; Pulse 116; Resp 17; Temp 98.3(O); Pulse Ox 97% ; mh5 10:13 BP 119 / 88; Pulse 99; Resp 18; Temp 98.0(O); Pulse Ox 100% ; mh5 11:00 BP 124 / 75; Pulse 101; Resp 17; Temp 98.0(O); Pulse Ox 99% on R/A; mh5 12:08 BP 115 / 85; Pulse 94; Resp 17; Temp 98.6; Pulse Ox 98% on R/A; mh5 13:36 BP 120 / 84; Pulse 79; Resp 17; Pulse Ox 99% on R/A; tw2 MDM: 04/03 15:37 Patient medically screened. cp 16:00 Differential diagnosis: drug withdrawal. acute psychotic break, depression, psychosis cp secondary to non-compliance. 18:30 Data reviewed: vital signs, nurses notes, lab test result(s), EKG, radiologic studies, cp CT scan. 04/04 14:15 ED course: pt seen and examined pt is psychotic not able to fully achieve ADL will need facility medical and psychiatric. 04/05 07:17 ED course: pt calm restarted regular meds will monitor progress,. 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 04/06 08:14 Counseling: I had a detailed discussion with the patient and/or guardian regarding: the rn historical points, exam findings, and any diagnostic results supporting the discharge/admit diagnosis, lab results, radiology results, the need for outpatient follow up, to return to the emergency department if symptoms worsen or persist or if there are any questions or concerns that arise at home. ED course: Pt still here from yesterdays shift, apparently waiting for social services manager consult, patient is now back to baseline, comfortable, negative w/u for acute delirium, lithium was below therapeutic level, and had not been taking medication. Patient reports feels fine. Doesn't recall events. Bringing brother back to confirm is back to baseline, and if so will dc home. Only intervention was to given patient his home meds that have been prescribed by psychiatrist, the same meds he has not been taking. Not sure what social services manager can contribute to the situation. Patient aware that needs to take his medication. Lives with mother and has good support system. Anticipate dc home.. 11:07 ED course: chisel worker came by and evaluated patient, gave material and info, waiting rn on brother to pick him up.. 04/03 15:40 Order name: Acetaminophen 04/03 15:40 Order name: Basic Metabolic Panel 04/03 15:40 Order name: CBC with Diff 04/03 15:40 Order name: Urine Drug Screen; Complete Time: 17:24 04/03 15:40 Order name: Urine Microscopic Only; Complete Time: 17:24 04/03 15:54 Order name: Glucose, Ancillary Testing; Complete Time: 16:12 EDKS 04/03 16:12 Interpretation: Reviewed. 04/03 16:11 Order name: Basic Metabolic Panel; Complete Time: 17:24 EDKS 04/03 17:25 Interpretation: Normal except: NA 146; CL 112; BUN 31; GFR 66. 04/03 16:11 Order name: Liver (Hepatic) Function; Complete Time: 17:24 EDKS 04/03 16:11 Order name: Acetaminophen Level; Complete Time: 17:24 EDKS 04/03 16:12 Order name: Alcohol Serum/Plasma; Complete Time: 17:24 EDKS 04/03 16:12 Order name: [place]; Complete Time: 17:24 EDKS 04/03 17:25 Interpretation: Abnormal: LI 0.2. 04/03 16:12 Order name: Salicylates Level; Complete Time: 17:24 EDKS 04/03 16:12 Order name: CBC with Automated Diff; Complete Time: 17:24 EDKS 04/03 16:12 Order name: Protime (+INR); Complete Time: 17:24 EDKS 04/03 16:12 Order name: PTT, Activated Partial Thromb; Complete Time: 17:24 [facility] 04/03 16:18 Order name: Head Brain Wo Cont; Complete Time: 17:24 [facility] 04/03 17:56 Interpretation: Report reviewed. 04/03 16:39 Order name: Urine Dipstick--Ancillary (enter results); Complete Time: 17:24 em 04/03 15:40 Order name: EKG; Complete Time: 16:26 04/03 15:40 Order name: EKG - Nurse/Tech; Complete Time: 16:05 04/03 15:40 Order name: IV Saline Lock; Complete Time: 16:01 04/03 17:55 Order name: Diet Regular; Complete Time: 17:56 04/04 07:29 Order name: Diet Regular; Complete Time: 07:[address] [facility] 04/04 10:18 Order name: Diet Regular; Complete Time: 10:[address] [facility] 04/04 16:23 Order name: Diet Regular; Complete Time: 16:23 04/05 06:38 Order name: Diet Regular; Complete Time: 06:38 04/05 13:48 Order name: Diet Regular; Complete Time: 13:49 04/06 07:19 Order name: Diet Regular; Complete Time: 07:20 2 04/06 07:53 Order name: Social Service Consult [facility] 04/06 12:33 Order name: Diet Regular; Complete Time: 12:35 [facility] 04/03 15:40 Order name: Labs collected and sent; Complete Time: 16:01 04/03 15:40 Order name: Urine Dipstick-Ancillary (obtain specimen); Complete Time: 16:33 EC/19 16:11 Rate is 97 beats/min. Rhythm is regular. VA interval is normal. QRS interval is normal. QT interval is normal. Interpreted by me. Reviewed by me. Administered Medications: 16:02 Drug: NS 0.9% 1000 ml Route: IV; Rate: 1 bolus; Site: right antecubital; mg2 23:06 Follow up: Response: No adverse reaction; IV Status: Completed infusion; IV Intake: mg2 1000ml 18:45 Drug: NS 0.9% 1000 ml Route: IV; Rate: 1 bolus; Site: right antecubital; mg2 23:05 Follow up: Response: No adverse reaction; IV Status: Completed infusion; IV Intake: mg2 1000ml 18:46 Drug: LaMICtal 200 mg Route: PO; mg2 23:05 Follow up: Response: No adverse reaction mg2 23:05 Drug: SEROquel 500 mg Route: PO; mg2 04/04 20:59 Follow up: Response: No adverse reaction la1 15:34 Drug: Lisinopril 10 mg {Note: used patient's own meds.} Route: PO; em5 20:58 Follow up: Response: No adverse reaction la1 15:34 Drug: sulfaSALAzine 500 mg {Note: used patient own meds.} Route: PO; em5 20:58 Follow up: Response: No adverse reaction la1 15:35 Drug: foLIC Acid 1 mg {Note: used patient's own meds.} Route: PO; em5 20:58 Follow up: Response: No adverse reaction la1 21:39 Drug: LaMICtal 200 mg Route: PO; la1 04/05 00:51 Follow up: Response: No adverse reaction la1 04/04 21:39 Drug: SEROquel 400 mg Route: PO; la1 04/05 00:51 Follow up: Response: No adverse reaction la1 04/04 21:39 Drug: [place] 300 mg Route: PO; la1 04/05 00:50 Follow up: Response: No adverse reaction la1 08:35 Drug: foLIC Acid 1 mg Route: PO; ab1 08:35 Drug: omeprazole 40 mg Route: PO; ab1 08:36 Drug: Lisinopril 10 mg Route: PO; ab1 08:37 Drug: sulfaSALAzine 500 mg Route: PO; ab1 09:39 Drug: Tylenol 650 mg {Note: pt complained of head ache P/s 5/10.} Route: PO; ab1 21:22 Drug: [place] 300 mg Route: PO; la1 23:34 Follow up: Response: No adverse reaction la1 21:23 Drug: SEROquel 400 mg Route: PO; la1 23:34 Follow up: Response: No adverse reaction la1 21:23 Drug: LaMICtal 200 mg Route: PO; la1 23:35 Follow up: Response: No adverse reaction la1 04/06 09:10 Drug: Lisinopril 10 mg {Note: pts own medication.} Route: PO; tw2 10:10 Follow up: Response: No adverse reaction tw2 09:10 Drug: foLIC Acid 1 mg {Note: pts own medication.} Route: PO; tw2 10:10 Follow up: Response: No adverse reaction tw2 09:10 Drug: omeprazole 40 mg {Note: pts own medication.} Route: PO; tw2 19:02 Follow up: Response: No adverse reaction tw2 09:10 Drug: sulfaSALAzine 500 mg {Note: Pts own medication.} Route: PO; tw2 10:10 Follow up: Response: No adverse reaction tw2 Disposition: 04/06/19 11:09 Discharged to Home. Impression: Altered mental status, unspecified, Schizoaffective disorder, unspecified. - Condition is Stable. - Discharge Instructions: Schizoaffective Disorder. - SBAR form, Medication Reconciliation Form, Thank You Letter, Antibiotic Education, Prescription Opioid Use form. - Follow up: Private Physician; When: As needed; Reason: Recheck today's complaints, Re-evaluation by your physician. - Problem is new. - Symptoms have improved. Signatures: Dispatcher [employer] EDMS Burak Mota, ALEXANDRA RN sg Denis Stallworth MD MD rn Calderon, Audri, RN RN aa5 Papito Gamez RN RN la1 Devin Pedraza PA PA cp Wise, Tara, RN RN tw2 Brayden Jensen MD MD gs Gardose, Michele, RN RN mg2 Barbara, Corry ab1 Miguel, Sri em5 Corrections: (The following items were deleted from the chart) 04/03 16:29 16:25 UA MICROSCOPIC+U.LAB.BRZ ordered. EDMS EDMS 16:45 16:26 Head Brain Wo Cont+CT.RAD.BRZ ordered. EDMS EDMS 16:49 16:25 Acetaminophen Level ordered. EDMS EDMS 16:49 16:25 Basic Metabolic Panel ordered. EDMS EDMS 16:49 16:25 ETHANOL+C.LAB.BRZ ordered. EDMS EDMS 16:49 16:25 HEPATIC FUNCTION+C.LAB.BRZ ordered. EDMS EDMS 16:49 16:25 SALICYLATE+C.LAB.BRZ ordered. EDMS EDMS 16:49 16:25 LITHIUM+C.LAB.BRZ ordered. EDMS EDMS 16:50 16:25 CBC with Automated Diff ordered. EDMS EDMS 16:50 16:25 PROTIME (+INR)+COAG.LAB.BRZ ordered. EDMS EDMS 16:50 16:25 PTT, ACTIVATED+COAG.LAB.BRZ ordered. EDMS EDMS 04/04 14:28 04/03 14:56 Home Meds: [place] Carbonate Oral; aa5 04/04 14:28 04/03 14:56 Home Meds: Seroquel Oral; [facility] 04/06 09:23 04/03 14:56 Home Meds: Lisinopril Oral; [place] [id number] 04/06 09:04/03 14:56 Home Meds: Omeprazole Oral; [place] [id number] 04/06 09:04/03 14:56 Home Meds: Folic Acid Oral; [place] [id number] 04/06 13:39 11:09 04/06/2019 11:09 Discharged to Home. Impression: Altered mental status, tw2 unspecified; Schizoaffective disorder, unspecified. Condition is Stable. Forms are SBAR form, Medication Reconciliation Form, Thank You Letter, Antibiotic Education, Prescription Opioid Use. Follow up: Private Physician; When: As needed; Reason: Recheck today's complaints, Re-evaluation by your physician. Problem is new. Symptoms have improved. rn
== END 2019-04-06 13:39 | disposition home or self-care (01) ==
LOC: ER 14:25
DX: R41.82 Altered mental status, unspecified (principal); F25.9 Schizoaffective disorder, unspecified; I10 Essential (primary) hypertension
CPT/HCPCS: 36415; 51702; 70450; 80048; 80076; 80178; 80307; 80320; 80329; 81003; 81015; 82962; 85025; 85610; 85730; 93005; 96360; 96361; 99285; J7030

== ENCOUNTER 2019-07-06 19:35 | Emergency (ER) | payer SELFPAY ==
[2019-07-06] MEDS ORDERED: NA CHLORIDE 0.9% 1,000 ML ONE (21:02)
[2019-07-06 21:05] LABS: Absolute Lymphocytes (CBC) 1.9 K/uL (0.7-4.9); Basophils % 0.9 % (0-1.3); Hematocrit 44.9 % (39.6-49.0); Lymphocytes % 22.3 % (15.3-44.8); MPV 8.3 fL (7.6-11.3)
[2019-07-06 21:22] LABS: ALT/SGPT 36 U/L (12-78); AST/SGOT 15 U/L (15-37); Albumin 4.5 g/dL (3.4-5.0); Alkaline Phosphatase 76 U/L (45-117); BUN Blood Urea Nitrogen 22 mg/dL (7-18); Bicarbonate 27 mmol/L (21-32); Bilirubin Direct 0.2 mg/dL (0-0.2); Bilirubin Total 0.5 mg/dL (0.2-1.0); Glucose Level 101 mg/dL (74-106); Potassium 3.5 mmol/L (3.5-5.1); Protein, Total 7.4 g/dL (6.4-8.2); Sodium Level 147 mmol/L (136-145)
[2019-07-06 21:38] LABS: Protime INR 1.08
[2019-07-06 21:51] LABS: Lithium 0.2 mmol/L (0.6-1.2)
[2019-07-06 22:17] LABS: Salicylates Level < 1.7 mg/dL (2.8-20)
[2019-07-06] MEDS ORDERED: QUETIAPINE 100MG TAB ONE (22:56)
[2019-07-06] MEDS ORDERED: QUETIAPINE 25 MG TAB ONE (22:57)
[2019-07-06] MEDS ORDERED: lamoTRIgine 100 MG TAB ONE (22:58)
[2019-07-06] MEDS ORDERED: LITHIUM CARBONATE 300 MG TAB PO ONE (23:00)
--- NOTE | 2019-07-07 03:15 | EDPHYS ---
Physician Documentation [facility] Name: Ravi Jaime Age: 39 yrs Sex: Male : 1980 Arrival Date: 07/06/2019 Time: 19:37 Bed 20 Private MD: ED Physician Devin Harris HPI: 07/06 20:50 This 39 yrs old Male presents to ER via Ambulatory with complaints of Anxiety.cp 20:50 The patient presents to the emergency department with altered mental status due not cp taking prescribed psych medications. 20:50 Onset: The symptoms/episode began/occurred at an unknown time. Past psychiatric cp history: Prior diagnosis: schizoaffective disorder, Psychiatric medications include: [place], Seroquel and Lamictal. Associated signs and symptoms: Pertinent positives; altered mental status. Severity of symptoms: in the emergency department the symptoms are unchanged. 20:50 Patient's brother reports patient lives with their mother who is currently in rehab cp center for past couple weeks. Patient was found today by his nephew naked at home. Patient has had similar episodes in the past when he has been off his prescribed psych medications. Historical: - Allergies: 19:47 No Known Allergies; ak1 - Home Meds: 19:47 folic acid 1 mg Oral tab 1 tab once daily [Active]; lamotrigine 200 mg Oral tab once ak1 daily [Active]; lisinopril 10 mg Oral tab 1 tab once daily for Hypertension [Active]; lithium carbonate 300 mg Oral cap 2 caps AT NIGHT [Active]; omeprazole 40 mg Oral cpDR 1 cap once daily [Active]; Seroquel 100 mg Oral tab 1.5 tab AT NIGHT [Active]; sulfasalazine 500 mg Oral tab BID [Active]; - PMHx: 19:47 Hypertension; schizoaffective disorder; ak1 - Immunization history:: Adult Immunizations unknown. - Social history:: Smoking status: Patient/guardian denies using tobacco. - Ebola Screening: : No symptoms or risks identified at this time. ROS: 21:00 Constitutional: Negative for fever. cp 21:00 Neuro: Positive for altered mental status. cp 21:00 Unable to obtain ROS due to altered mental status. 07/07 10:10 Constitutional: Negative for fever, chills, and weight loss, Eyes: Negative for injury, pm1 pain, redness, and discharge, ENT: Negative for injury, pain, and discharge, Neck: Negative for injury, pain, and swelling, Cardiovascular: Negative for chest pain, palpitations, and edema, Respiratory: Negative for shortness of breath, cough, wheezing, and pleuritic chest pain, Abdomen/GI: Negative for abdominal pain, nausea, vomiting, diarrhea, and constipation, Back: Negative for injury and pain, MS/Extremity: Negative for injury and deformity, Skin: Negative for injury, rash, and discoloration, Neuro: Negative for headache, weakness, numbness, tingling, and seizure. Psych: Negative for auditory hallucinations, visual hallucinations, homicidal ideation, suicide gesture, suicidal ideation. Exam: 07/06 21:05 Constitutional: The patient appears in no acute distress, alert, awake, cp non-diaphoretic, non-toxic, well developed, well nourished. 21:05 Head/Face: Normocephalic, atraumatic. cp 21:05 Eyes: Periorbital structures: appear normal, Conjunctiva: normal, no exudate, no injection, Sclera: no appreciated abnormality, Lids and lashes: appear normal, bilaterally. 21:05 ENT: External ear(s): are unremarkable, Nose: is normal, Mouth: is normal, Posterior pharynx: is normal, airway is patent. 21:05 Neck: ROM/movement: is normal, is supple, no meningismus, no nuchal rigidity. 21:05 Chest/axilla: Inspection: normal, Palpation: is normal, no crepitus, no tenderness. 21:05 Cardiovascular: Rate: normal, Rhythm: regular, Edema: is not appreciated, JVD: is not appreciated. 21:05 Respiratory: the patient does not display signs of respiratory distress, Respirations: normal, no use of accessory muscles, no retractions, no splinting, no tachypnea, labored breathing, is not present, Breath sounds: are clear throughout, no decreased breath sounds, no stridor, no wheezing. 21:05 Abdomen/GI: Inspection: abdomen appears normal, Palpation: abdomen is soft and non-tender, in all quadrants. 21:05 Skin: no rash present. 21:05 Neuro: Orientation: Not oriented to person, place, situation, Mentation: responsive to voice Motor: moves all fours, strength is normal. 21:20 ECG was reviewed by the Attending Physician. cp Vital Signs: 19:44 BP 153 / 103; Pulse 93; Resp 16; Temp 97.3; Pulse Ox 99% on R/A; Weight 90.72 kg (R); ak1 Height 5 ft. 6 in. (167.64 cm) (R); Pain 0/10; 21:00 BP 126 / 80; Pulse 90; Resp 18; Pulse Ox 100% on R/A; mg2 22:00 BP 126 / 78; Pulse 80; Resp 18; Pulse Ox 100% on R/A; mg2 23:00 BP 130 / 78; Pulse 90; Resp 18; Pulse Ox 100% on R/A; mg2 07/07 00:05 BP 113 / 60; Pulse 94; Resp 18; Pulse Ox 95% on R/A; mg2 02:15 BP 120 / 80; Pulse 81; Resp 16; Pulse Ox 97% on R/A; lp1 03:30 BP 115 / 64; Pulse 80; Resp 16; Pulse Ox 100% on R/A; lp1 04:30 BP 113 / 75; Pulse 78; Resp 18; Pulse Ox 97% on R/A; lp1 05:30 BP 111 / 65; Pulse 66; Resp 18; Pulse Ox 99% on R/A; lp1 06:58 BP 107 / 63; Pulse 77; Resp 18; Pulse Ox 100% on R/A; lp1 10:00 BP 113 / 75; Pulse 75; Resp 17; Temp 97.5; Pulse Ox 99% ; bp 07/06 19:44 Body Mass Index 32.28 (90.72 kg, 167.64 cm) ak1 MDM: 07/06 20:41 Patient medically screened. doroteo 21:00 Differential diagnosis: acute psychotic break, psychosis secondary to non-compliance. cp 23:00 Data reviewed: vital signs, nurses notes, lab test result(s), EKG, and as a result, I cp will. 23:00 Test interpretation: by ED physician or midlevel provider: ECG. cp 07/07 10:05 ED course: [facility]: Harsh Burns evaluated the patient and does not believe the pm1 patient is at any harm to self or others if discharged home. Patient will also be discharged to the care of his brother. Patient's lack of medication compliance recently is the likely cause for the patient's symptoms and behavior. His mother that he lives with has recently been placed in a detention/rehabilitation center so he is currently living at home by himself. Established a follow up appointment for the patient with [facility] on . Evaluated the patient myself and agree with the plan of care. Brother also agrees with the plan and is comfortable taking the patient home. Patient has all his medications at home. 07/06 20:46 Order name: Acetaminophen; Complete Time: 21:35 cp 07/06 20:46 Order name: Basic Metabolic Panel; Complete Time: 21:35 cp 07/06 21:35 Interpretation: Normal except: NA 147; CL 114; BUN 22; GFR 77. cp 07/06 20:46 Order name: CBC with Diff; Complete Time: 21:35 cp 07/06 20:46 Order name: ETOH Level; Complete Time: 21:35 cp 07/06 20:46 Order name: Hepatic Function; Complete Time: 21:35 cp 07/06 20:46 Order name: PT-INR; Complete Time: 22:33 cp 07/06 20:46 Order name: Ptt, Activated; Complete Time: 22:33 cp 07/06 20:46 Order name: Salicylate; Complete Time: 22:33 cp 07/06 20:46 Order name: Hatton; Complete Time: 22:33 cp 07/06 20:46 Order name: EKG; Complete Time: 20:47 cp 07/06 20:46 Order name: EKG - Nurse/Tech; Complete Time: 21:11 cp 07/06 20:46 Order name: IV Saline Lock; Complete Time: 21:11 cp 07/06 20:46 Order name: Labs collected and sent; Complete Time: 21:11 cp 07/07 07:43 Order name: Diet Regular; Complete Time: 07:43 bd EC/21 21:20 Rate is 71 beats/min. Rhythm is regular. SC interval is normal. QRS interval is normal. cp QT interval is normal. T waves are Inverted in lead III. Interpreted by me. Reviewed by me. Administered Medications: 21:10 Drug: NS 0.9% 1000 ml Route: IV; Rate: 1 bolus; Site: left antecubital; mg2 23:59 Follow up: Response: No adverse reaction; IV Status: Completed infusion; IV Intake: mg2 1000ml 07/07 10:13 Follow up: IV Status: Completed infusion; IV Intake: 1000ml bp 07/06 23:43 Drug: [place] 600 mg Route: PO; tr5 07/07 10:13 Follow up: Response: No adverse reaction bp 07/06 23:44 Drug: [place] 200 mg Route: PO; tr5 07/07 10:13 Follow up: Response: No adverse reaction bp 07/06 23:44 Drug: SEROquel 150 mg Route: PO; tr5 07/07 10:13 Follow up: Response: No adverse reaction bp Disposition: 07/08 06:34 Co-signature as Attending Physician, Devin Harris MD I agree with the assessment and doroteo plan of care. Disposition: 07/07/19 10:10 Discharged to Home. Impression: Patient's other noncompliance with medication regimen, Schizoaffective disorder, unspecified. - Condition is Stable. - Discharge Instructions: Schizoaffective Disorder. - Medication Reconciliation Form, Thank You Letter, Antibiotic Education, Prescription Opioid Use form. - Follow up: Emergency Department; When: As needed; Reason: Worsening of condition. Follow up: Private Physician; When: 2 - 3 days; Reason: Recheck today's complaints, Continuance of care, Re-evaluation by your physician. - Problem is new. - Symptoms have improved. Signatures: Dispatcher [employer] EDDevin Begum MD MD cha Krenek, Amber, RN RN ak1 Devin Pedraza PA PA cp Humberto Esposito, LOOPING INSPECTOR LOOPING INSPECTOR pm1 Abdi Hammer RN RN bp Kris Krishnan RN RN mg2 Tru Carreno RN RN tr5 Corrections: (The following items were deleted from the chart) 07/07 10:10 03:14 07/07/2019 03:14 Transfer ordered to Psych Facility. Diagnosis is Patient's pm1 noncompliance with medical treatment and regimen; Altered mental status, unspecified. Reason for transfer: Higher level of care. Accepting physician is psych facility. Condition is Stable. Problem is an acute exacerbation. Symptoms have improved. cp 10:11 10:10 07/07/2019 10:10 Discharged to Home. Impression: Patient's other noncompliance pm1 with medication regimen. Condition is Stable. Forms are Medication Reconciliation Form, Thank You Letter, Antibiotic Education, Prescription Opioid Use. Follow up: Emergency Department; When: As needed; Reason: Worsening of condition. Follow up: Private Physician; When: 2 - 3 days; Reason: Recheck today's complaints, Continuance of care, Re-evaluation by your physician. Problem is new. Symptoms have improved. pm1 10:19 10:11 07/07/2019 10:10 Discharged to Home. Impression: Patient's other noncompliance bp with medication regimen; Schizoaffective disorder, unspecified. Condition is Stable. Forms are Medication Reconciliation Form, Thank You Letter, Antibiotic Education, Prescription Opioid Use. Follow up: Emergency Department; When: As needed; Reason: Worsening of condition. Follow up: Private Physician; When: 2 - 3 days; Reason: Recheck today's complaints, Continuance of care, Re-evaluation by your physician. Problem is new. Symptoms have improved. pm1
--- NOTE | 2019-07-07 03:15 | ER ---
Nurse's Notes [facility] Name: Ravi Jaime Age: 39 yrs Sex: Male : 1980 Arrival Date: 07/06/2019 Time: 19:37 Bed 20 Private MD: Diagnosis: Patient's other noncompliance with medication regimen;Schizoaffective disorder, unspecified Presentation: 07/06 19:45 Presenting complaint: brother stated pt was naked running around the house and not ak1 "acting right" pt can not recall his medication list, pt can not recall the last time he took medications. Transition of care: patient was not received from another setting of care. Onset of symptoms was July 04, 2019. Risk Assessment: Do you want to hurt yourself or someone else? Patient reports no desire to harm self or others. Initial Sepsis Screen: Does the patient meet any 2 criteria? No. Patient's initial sepsis screen is negative. Does the patient have a suspected source of infection? No. Patient's initial sepsis screen is negative. Care prior to arrival: None. 19:45 Method Of Arrival: Ambulatory ak1 19:45 Acuity: GERALDINE 3 ak1 Triage Assessment: 19:47 General: Appears comfortable. ak1 Historical: - Allergies: 19:47 No Known Allergies; ak1 - Home Meds: 19:47 folic acid 1 mg Oral tab 1 tab once daily [Active]; lamotrigine 200 mg Oral tab once ak1 daily [Active]; lisinopril 10 mg Oral tab 1 tab once daily for Hypertension [Active]; lithium carbonate 300 mg Oral cap 2 caps AT NIGHT [Active]; omeprazole 40 mg Oral cpDR 1 cap once daily [Active]; Seroquel 100 mg Oral tab 1.5 tab AT NIGHT [Active]; sulfasalazine 500 mg Oral tab BID [Active]; - PMHx: 19:47 Hypertension; schizoaffective disorder; ak1 - Immunization history:: Adult Immunizations unknown. - Social history:: Smoking status: Patient/guardian denies using tobacco. - Ebola Screening: : No symptoms or risks identified at this time. Screenin:12 Abuse screen: Denies threats or abuse. Denies injuries from another. Nutritional mg2 screening: No deficits noted. Tuberculosis screening: No symptoms or risk factors identified. Fall Risk Secondary diagnosis (15 points) IV access (20 points). Assessment: 23:00 General: Appears in no apparent distress. comfortable, Behavior is calm, cooperative, mg2 quiet. 23:54 Pain: Denies pain. Neuro: Level of Consciousness is confused, Oriented to place, mg2 patient has the inability to understand basic instructions. Cardiovascular: Capillary refill < 3 seconds Patient's skin is warm and dry. Respiratory: Airway is patent Respiratory effort is even, unlabored, Respiratory pattern is regular, symmetrical. GI: No signs and/or symptoms were reported involving the gastrointestinal system. : No signs and/or symptoms were reported regarding the genitourinary system. EENT: No signs and/or symptoms were reported regarding the EENT system. Derm: Skin is intact, is healthy with good turgor, Skin is pink, warm \\T\\ dry. normal. Musculoskeletal: Circulation, motion, and sensation intact. Capillary refill < 3 seconds. 23:57 Reassessment: patient is inside the room, just pacing while watching television. mg2 07/07 00:08 Reassessment: patient is non-violent and doesn't exhibit aggressive behavior in ED. mg2 00:09 Reassessment: pooja hdz - [phone] call him for the plan or anything. mg2 02:20 Reassessment: Report from ALEXANDRA Ott given to ALEXANDRA García at this time. lp1 02:30 Reassessment: Patient resting, eyes closed, respirations unlabored. lp1 03:18 Reassessment: Patient not in room on rounding; Patient found in bathroom, done prior to lp1 collecting urine sample; gait steady. 03:35 Reassessment: Patient appears in no apparent distress at this time. Neuro: Level of lp1 Consciousness is awake, obeys commands, Oriented to person. 04:30 Reassessment: Patient appears in no apparent distress at this time. Patient and/or lp1 family updated on plan of care and expected duration. Pain level reassessed. Patient resting, eyes closed, respirations unlabored. 05:21 Reassessment: Patient appears in no apparent distress at this time. No changes from lp1 previously documented assessment. 06:09 Reassessment: Patient not in room on rounding; Walking out of bathroom, steady gait lp1 noted. 07:00 Reassessment: RECD REPORT FROM DEMIAN MORRIS. 39YO WM P/W ANXIETY AND PSYCH D/O. PSYCH bp TRANSFER INITIATED. 08:39 Reassessment: PT PROVIDED BREAKFAST TRAY. NO APPROVAL FOR TRANSFER AT THIS TIME. bp 09:05 Reassessment: [facility] AT B/S. bp 10:01 Reassessment: PER [facility], PT CLEARED FOR D/C AND OUTPATIENT F/U. bp Vital Signs: 07/06 19:44 BP 153 / 103; Pulse 93; Resp 16; Temp 97.3; Pulse Ox 99% on R/A; Weight 90.72 kg (R); ak1 Height 5 ft. 6 in. (167.64 cm) (R); Pain 0/10; 21:00 BP 126 / 80; Pulse 90; Resp 18; Pulse Ox 100% on R/A; mg2 22:00 BP 126 / 78; Pulse 80; Resp 18; Pulse Ox 100% on R/A; mg2 23:00 BP 130 / 78; Pulse 90; Resp 18; Pulse Ox 100% on R/A; mg2 07/07 00:05 BP 113 / 60; Pulse 94; Resp 18; Pulse Ox 95% on R/A; mg2 02:15 BP 120 / 80; Pulse 81; Resp 16; Pulse Ox 97% on R/A; lp1 03:30 BP 115 / 64; Pulse 80; Resp 16; Pulse Ox 100% on R/A; lp1 04:30 BP 113 / 75; Pulse 78; Resp 18; Pulse Ox 97% on R/A; lp1 05:30 BP 111 / 65; Pulse 66; Resp 18; Pulse Ox 99% on R/A; lp1 06:58 BP 107 / 63; Pulse 77; Resp 18; Pulse Ox 100% on R/A; lp1 10:00 BP 113 / 75; Pulse 75; Resp 17; Temp 97.5; Pulse Ox 99% ; bp 07/06 19:44 Body Mass Index 32.28 (90.72 kg, 167.64 cm) ak1 ED Course: 07/06 19:37 Patient arrived in ED. es 19:44 Arm band placed on Patient placed in waiting room, Patient notified of wait time. ak1 19:46 Triage completed. ak1 20:00 Tru Carreno RN is Primary Nurse. tr5 20:37 Devin Pedraza PA is PHCP. cp 20:37 Devin Harris MD is Attending Physician. cp 21:11 No provider procedures requiring assistance completed. Inserted saline lock: 20 gauge mg2 in left antecubital area, using aseptic technique. Blood collected. 23:56 Patient has correct armband on for positive identification. Pulse ox on. NIBP on. Door mg2 closed. Warm blanket given. 23:58 IV discontinued, intact, bleeding controlled, No redness/swelling at site. Pressure mg2 dressing applied, patient pulled out his IV probably by accident. 07/07 07:10 Primary Nurse role handed off by Tru Carreno, ALEXANDRA bp 07:10 Abdi Hammer, ALEXANDRA is Primary Nurse. bp 10:08 PHCP role handed off by Devin Pedraza PA pm1 10:08 Humberto Esposito NP is PHCP. pm1 Administered Medications: 07/06 21:10 Drug: NS 0.9% 1000 ml Route: IV; Rate: 1 bolus; Site: left antecubital; mg2 23:59 Follow up: Response: No adverse reaction; IV Status: Completed infusion; IV Intake: mg2 1000ml 07/07 10:13 Follow up: IV Status: Completed infusion; IV Intake: 1000ml bp 07/06 23:43 Drug: [place] 600 mg Route: PO; tr5 07/07 10:13 Follow up: Response: No adverse reaction bp 07/06 23:44 Drug: LaMICtal 200 mg Route: PO; tr5 07/07 10:13 Follow up: Response: No adverse reaction bp 07/06 23:44 Drug: SEROquel 150 mg Route: PO; tr5 07/07 10:13 Follow up: Response: No adverse reaction bp Intake: 07/06 23:59 IV: 1000ml; Total: 1000ml. mg2 07/07 10:13 IV: 1000ml; Total: 2000ml. bp Outcome: 03:14 ER care complete, transfer ordered by MD. cp 05:21 Condition: stable lp1 10:10 Discharge ordered by . pm1 10:12 Discharged to home ambulatory, with family. bp 10:12 Discharge instructions given to patient, family, Instructed on discharge instructions, follow up and referral plans. Demonstrated understanding of instructions, follow-up care. 10:19 Patient left the ED. bp Signatures: Tiana Paredes Laura RN RN lp1 Adriana Mackey RN RN ak1 Devin Pedraza PA PA cp Humberto Esposito, MOLD DRESSER MOLD DRESSER pm1 Abdi Hammer RN RN bp Kris Krishnan RN RN mg2 Tru Carreno RN RN tr5 Corrections: (The following items were deleted from the chart) 07/06 23:57 23:54 General: Appears in no apparent distress. comfortable, Behavior is calm, mg2 cooperative, quiet, mg2 07/07 00:08 07/06 23:54 Neuro: Level of Consciousness is confused, Oriented to place, patient has mg2 the inability to understand basic instructions. mg2 07/07 03:27 07/06 19:45 Acuity: GERALDINE 4 ak1 ak1
[2019-07-07 10:38] VITALS: BP 113/75; TEMP 97.5; O2SAT 99
--- NOTE | 2019-07-07 12:12 | EKG ---
Test Date: 2019-07-06 Test Time: 21:13:32 [employer] Laboratory Assistant: BURTON MEASUREMENT RESULTS: Intervals: Rate: 71 NV: 150 QRSD: 82 QT: 390 QTc: 423 [place]: P: 12 NV: 150 QRS: 27 T: -5 INTERPRETIVE STATEMENTS: Normal sinus rhythm Normal ECG Compared to ECG 04/03/2019 16:06:10 No significant changes Electronically Signed On 07-07-19 12:09:16 CDT by Avni Whitney
== END 2019-07-07 10:19 | disposition home or self-care (01) ==
LOC: ER 19:35
DX: F25.9 Schizoaffective disorder, unspecified (principal); Z91.14 Patient's other noncompliance with medication regimen; I10 Essential (primary) hypertension
CPT/HCPCS: 36415; 80048; 80076; 80178; 80320; 80329; 85025; 85610; 85730; 93005; 96360; 96361; 99284; J7030

== ENCOUNTER 2019-11-03 21:14 | Emergency (ER) | payer SELFPAY ==
[2019-11-03 21:52] LABS: Absolute Lymphocytes (CBC) 1.7 K/uL (0.7-4.9); Basophils % 0.9 % (0-1.3); Hematocrit 43.9 % (39.6-49.0); Lymphocytes % 20.2 % (15.3-44.8); MPV 8.1 fL (7.6-11.3); RBC Red Blood Cell Count 4.94 M/uL (4.33-5.43)
[2019-11-03 22:10] LABS: ALT/SGPT 47 U/L (12-78); AST/SGOT 23 U/L (15-37); Albumin 4.5 g/dL (3.4-5.0); Alkaline Phosphatase 67 U/L (45-117); BUN Blood Urea Nitrogen 13 mg/dL (7-18); Bicarbonate 23 mmol/L (21-32); Bilirubin Direct < 0.1 mg/dL (0-0.2); Bilirubin Total 0.4 mg/dL (0.2-1.0); Glucose Level 110 mg/dL (74-106); Potassium 3.1 mmol/L (3.5-5.1); Protein, Total 7.5 g/dL (6.4-8.2); Sodium Level 141 mmol/L (136-145)
[2019-11-03] MEDS ORDERED: NA CHLORIDE 0.9% 0 ML ONE (22:12)
[2019-11-03] MEDS ORDERED: LIDOCAINE VISCOUS 2% SOLN 15 ML UDC ONE (22:40)
[2019-11-03 23:11] LABS: Barbiturates NEGATIVE (NEGATIVE); Benzodiazepines NEGATIVE (NEGATIVE); Cocaine NEGATIVE (NEGATIVE); METHAMPHETAM NEGATIVE (NEGATIVE); Methadone NEGATIVE (NEGATIVE); Opiates NEGATIVE (NEGATIVE); Phencyclidine NEGATIVE (NEGATIVE); THC Cannibis NEGATIVE (NEGATIVE)
[2019-11-03] MEDS ORDERED: POTASSIUM 25 MEQ EFFERV TAB ONE (23:16)
[2019-11-03] MEDS ORDERED: NS KCL 20MEQ 1,000 ML IV ONE (23:16)
--- NOTE | 2019-11-03 23:45 | ER ---
Nurse's Notes [facility] Name: Ravi Jaime Age: 39 yrs Sex: Male : 1980 Arrival Date: 11/03/2019 Time: 21:25 Bed 7 Private MD: Diagnosis: Bipolar disorder;Schizophrenia;Altered mental status, unspecified;Hypokalemia Presentation: 11/03 21:11 Presenting complaint: EMS states: He was found driving around by PD with his gutierrez up on jb4 his car. PD pulled him over and reported he was acting funny. His brother was called and confirmed he has a history of Bipolar disorder and Schizophrenia. The brother also reports that the patient changes his medications depending upon how he feels. 21:11 Transition of care: patient was not received from another setting of care. Onset of jb4 symptoms was November 03, 2019. Risk Assessment: Do you want to hurt yourself or someone else? Patient reports no desire to harm self or others. Initial Sepsis Screen: Does the patient meet any 2 criteria? HR > 90 bpm. Yes Does the patient have a suspected source of infection? No. Patient's initial sepsis screen is negative. Care prior to arrival: None. 21:11 Method Of Arrival: EMS: [facility] jb4 21:11 Acuity: GERALDINE 2 jb4 Historical: - Allergies: 21:11 No Known Allergies; jb4 - Home Meds: 21:11 lamotrigine 200 mg Oral tab once daily [Active]; omeprazole 40 mg Oral cpDR 1 cap once jb4 daily [Active]; Seroquel 100 mg Oral tab 1.5 tab AT NIGHT [Active]; lisinopril 10 mg Oral tab 1 tab once daily for Hypertension [Active]; lithium carbonate 300 mg Oral cap 2 caps AT NIGHT [Active]; sulfasalazine 500 mg Oral tab BID [Active]; folic acid 1 mg Oral tab 1 tab once daily [Active]; - PMHx: 21:11 Hypertension; schizoaffective disorder; Bipolar disorder; jb4 - PSHx: 21:11 None; jb4 - Immunization history:: Adult Immunizations unknown. - Coronavirus screen:: The patient has NOT traveled to [place] in the past 14 days. Proceed with normal triage process as indicated. The patient has NOT had contact with known/suspected case of Coronavirus? Proceed with normal triage procedures. - Social history:: Smoking status: unknown. - Family history:: not pertinent. - Ebola Screening: : No symptoms or risks identified at this time. Screenin:11 Abuse screen: Denies threats or abuse. Nutritional screening: No deficits noted. jb4 Tuberculosis screening: No symptoms or risk factors identified. Fall Risk IV access (20 points). Mental Status- Overestimates/Forgets Limitations (15 pts.). Total Hoffman Fall Scale indicates Low Risk Score (25-44 pts). Fall prevention measures have been instituted. Side Rails Up X 2 Placed close to Nursing Station Frequent Obs/Assesments occuring As available Patient and Family Educated on Fall Prevention Program and strategies. Assessment: 21:11 General: Appears in no apparent distress. comfortable, Behavior is calm, cooperative, jb4 appropriate for age. Pain: Denies pain. Neuro: Level of Consciousness is awake, alert, obeys commands, Oriented to person, place, time, Crusher Screen Repairer are equal bilaterally Moves all extremities. Speech Facial symmetry appears normal, Pupils are PERRLA, Intact Pt is forgetful and does not recall activities prior to arrival to ED.. Cardiovascular: Patient's skin is warm and dry. Respiratory: Airway is patent Respiratory effort is even, unlabored, Respiratory pattern is regular, symmetrical. GI: No signs and/or symptoms were reported involving the gastrointestinal system. : No signs and/or symptoms were reported regarding the genitourinary system. EENT: No signs and/or symptoms were reported regarding the EENT system. Derm: Skin is intact, Skin is pink, warm \\T\\ dry. Musculoskeletal: Circulation, motion, and sensation intact. Range of motion: intact in all extremities. 22:00 Reassessment: Patient appears in no apparent distress at this time. Patient and/or jb4 family updated on plan of care and expected duration. Pain level reassessed. Patient is alert, oriented x 3, equal unlabored respirations, skin warm/dry/pink. 23:00 Reassessment: Patient appears in no apparent distress at this time. Patient and/or jb4 family updated on plan of care and expected duration. Pain level reassessed. Patient is alert, oriented x 3, equal unlabored respirations, skin warm/dry/pink. Pt still does not know why he is at the hospital. Obeys most commands. Responds appropriately to some questions. Attempted to call pt's brother, no answer. instructed to call back or visit ED. 11/04 00:00 Reassessment: Patient appears in no apparent distress at this time. Patient and/or jb4 family updated on plan of care and expected duration. Pain level reassessed. Pt is resting in bed with eyes closed, respirations even and unlabored. No s/s of pain or distress noted. 01:00 Reassessment: Patient appears in no apparent distress at this time. No changes from jb4 previously documented assessment. Patient and/or family updated on plan of care and expected duration. Pain level reassessed. Pt remains forgetful. Still does not recall events prior arriving to ED or after. 02:00 Reassessment: Patient appears in no apparent distress at this time. Patient and/or jb4 family updated on plan of care and expected duration. Pain level reassessed. Patient is alert, oriented x 3, equal unlabored respirations, skin warm/dry/pink. Pt is sitting in bed. Oriented to person, place, and time. Pt follows most commands and responds to most questions appropriately. 03:00 Reassessment: Patient appears in no apparent distress at this time. No changes from jb4 previously documented assessment. Patient and/or family updated on plan of care and expected duration. Pain level reassessed. 04:16 Reassessment: Patient appears in no apparent distress at this time. No changes from jb4 previously documented assessment. Patient and/or family updated on plan of care and expected duration. Pain level reassessed. 05:15 Reassessment: Pt retaining 999+ ML per bladder scanner. Provider notified. Beck jb4 placed. 1400ml output. 05:42 Reassessment: Patient appears in no apparent distress at this time. Patient and/or jb4 family updated on plan of care and expected duration. Pain level reassessed. Patient is alert, oriented x 3, equal unlabored respirations, skin warm/dry/pink. Pt remains forgetful does not recall recent events, or any events up to this point. 06:32 Reassessment: Patient appears in no apparent distress at this time. No changes from jb4 previously documented assessment. Patient and/or family updated on plan of care and expected duration. Pain level reassessed. Attempted to call Pt's brother and mother. No response. Instructed to call back or come to ED. 07:30 Reassessment: Patient appears in no apparent distress at this time. No changes from ph previously documented assessment. Patient and/or family updated on plan of care and expected duration. Pain level reassessed. 08:30 Reassessment: Patient appears in no apparent distress at this time. No changes from ph previously documented assessment. Patient and/or family updated on plan of care and expected duration. Pain level reassessed. 09:49 Reassessment: Patient appears in no apparent distress at this time. Patient and/or ph family updated on plan of care and expected duration. Pain level reassessed. [facility] screener at bedside. 11:30 Reassessment: Patient appears in no apparent distress at this time. Patient and/or ph family updated on plan of care and expected duration. Pain level reassessed. Pt awake and alert,oriented to person, brother at bedside, states that he is able to take responsibility for pt if d/c home, will follow up w/ [facility] and contact them or mental health deputy if needed, brother also spoke w/ ERP about follow up and plan of care upon d/c, pt's beck d/c prior to d/c home, pt also noted to have difficulty following commands so assisted in dressing and getting out of bed by nursing staff, pt's brother states, " This is how he usually is when he's not taking his meds right. I'll give him his medicine when we get home.". Vital Signs: 11/03 21:11 BP 137 / 88; Pulse 105; Resp 18; Temp 99.3(O); Pulse Ox 98% on R/A; Weight 81.65 kg jb4 (R); Height 5 ft. 7 in. (170.18 cm) (R); Pain 0/10; 22:00 BP 127 / 104; Pulse 103; Resp 16; Pulse Ox 98% on R/A; jb4 23:39 BP 128 / 96; Pulse 116; Resp 16; Pulse Ox 98% on R/A; jb4 11/04 00:00 BP 132 / 96; Pulse 102; Resp 16; Pulse Ox 97% on R/A; jb4 01:30 BP 104 / 94; Pulse 99; Resp 16; Pulse Ox 98% on R/A; jb4 02:30 BP 132 / 97; Pulse 94; Resp 16; Pulse Ox 98% on R/A; jb4 03:30 BP 129 / 89; Pulse 94; Resp 19; Pulse Ox 98% on R/A; jb4 04:30 BP 113 / 74; Pulse 106; Resp 20; Pulse Ox 100% on R/A; jb4 05:00 BP 130 / 91; Pulse 95; Resp 19; Pulse Ox 97% on R/A; jb4 06:30 BP 132 / 96; Pulse 107; Resp 20; Pulse Ox 99% on R/A; jb4 07:30 BP 138 / 87; Pulse 101; Resp 18; Pulse Ox 98% on R/A; ph 08:30 BP 143 / 102; Pulse 99; Resp 16; Pulse Ox 99% on R/A; ph 09:30 BP 130 / 92; Pulse 103; Resp 18; Pulse Ox 99% on R/A; ph 11:00 BP 141 / 98; Pulse 104; Resp 16; Pulse Ox 98% on R/A; ph 02 21:11 Body Mass Index 28.19 (81.65 kg, 170.18 cm) jb4 ED Course: 11/03 21:11 Arm band placed on right wrist. jb4 21:25 Patient arrived in ED. jb4 21:28 Triage completed. jb4 21:30 Initial lab(s) drawn, by ED staff, sent to lab. EKG done, by ED staff, reviewed by dee dee Harris MD. Inserted saline lock: 20 gauge in left antecubital area, using aseptic technique. Blood collected. 21:32 Devin Harris MD is Attending Physician. [facility] 21:48 Tam Lynch, RN is Primary Nurse. jb4 22:27 CT Head Brain wo Cont In Process Unspecified. EDMS 11/04 10:12 attempted to call mothers phone, [phone], someone answered , then hung up when i bd explained who i was ad where i was calling from. 10:14 attempted to call brothers cell, , there was no answer, i left a message bd for someone to call me back. 10:28 Patient has correct armband on for positive identification. Placed in gown. Bed in low ph position. Call light in reach. Side rails up X 1. Pulse ox on. NIBP on. 11:45 No provider procedures requiring assistance completed. Beck cath removed intact, ph balloon deflated, inserted by shift commander. 12:01 IV discontinued, intact, bleeding controlled, No redness/swelling at site. Pressure ph dressing applied. Administered Medications: 11/03 22:34 Not Given (Duplicate Order): NS 0.9% 1000 ml IV at 125 ml/hr continuous [facility] :18 Drug: Potassium Effervescent Tablet 50 mEq Route: PO; [facility] 11/04 00:12 Follow up: Response: No adverse reaction [facility] 11/03 23:18 Drug: NS 0.9% with KCl 20 mEq/L 1000 ml Route: IV; Rate: 200 ml/hr; Site: right forearm;[facility] 11/04 04:20 Follow up: Response: No adverse reaction; IV Status: Completed infusion [facility] Outcome: 11/03 23:45 ER care complete, transfer ordered by . [facility] 11/04 11:09 Discharge ordered by . 12:02 Discharged to home via wheelchair, with family. 12:02 Condition: stable 12:02 Discharge instructions given to family, Instructed on discharge instructions, follow up and referral plans. Demonstrated understanding of instructions, follow-up care. 12:02 Patient left the ED. Signatures: Dispatcher [employer] EDMS [place] Shannon, DECONTAMINATION WORKER-C DECONTAMINATION WORKER-CkRadha Puente Corey, MD MD cha Hall, Patricia, RN RN Tam Pereira RN RN [facility] Corrections: (The following items were deleted from the chart) 11/03 22:05 22:04 Abuse screen: Denies threats or abuse. [place] [id number] 22:05 22:04 Tuberculosis screening: No symptoms or risk factors identified. [place] [id number] 22:05 22:04 Nutritional screening: No deficits noted. [place] [id number] 22:05 22:04 Fall Risk IV access (20 points). Mental Status- Overestimates/Forgets Limitations [facility] (15 pts.). Total Hoffman Fall Scale indicates Low Risk Score (25-44 pts). Fall prevention measures have been instituted. Side Rails Up X 2 Placed close to Nursing Station Frequent Obs/Assesments occuring As available Patient and Family Educated on Fall Prevention Program and strategies. [facility] 11/04 03:26 11/03 23:00 Reassessment: Patient appears in no apparent distress at this time. Patient jb4 and/or family updated on plan of care and expected duration. Pain level reassessed. Patient is alert, oriented x 3, equal unlabored respirations, skin warm/dry/pink. Pt still does not know why he is at the hospital. Obeys most commands. Responds appropriately to some questions. jb4 11/04 05:42 11/03 21:11 Neuro: Level of Consciousness is awake, alert, obeys commands, Oriented to jb4 person, place, time, Crusher Screen Repairer are equal bilaterally Moves all extremities. Speech Facial symmetry appears normal, Pupils are PERRLA, Intact jb4 11/04 05:42 01:00 Reassessment: Patient appears in no apparent distress at this time. No changes jb4 from previously documented assessment. Patient and/or family updated on plan of care and expected duration. Pain level reassessed. jb4 12:00 08:30 BP 127 / 91; Pulse 99bpm; Resp 16bpm; Pulse Ox 99% RA; ph ph
--- NOTE | 2019-11-03 23:46 | EDPHYS ---
Physician Documentation [facility] Name: Ravi Jaime Age: 39 yrs Sex: Male : 1980 Arrival Date: 11/03/2019 Time: 21:25 Bed 7 Private MD: ED Physician Devin Harris HPI: 11/03 22:30 This 39 yrs old Male presents to ER via EMS with complaints of Altered Mental doroteo Status. 22:30 The patient presents with confusion, decreased mental status, trouble concentrating. doroteo Onset: The symptoms/episode began/occurred acutely. Possible causes: CVA or TIA, drug use, alcohol, head injury, seizure, sepsis. Associated signs and symptoms: The patient has no apparent associated signs or symptoms. Patient's baseline: Neuro:. The patient has not experienced similar symptoms in the past. Historical: - Allergies: 21:11 No Known Allergies; jb4 - Home Meds: 21:11 lamotrigine 200 mg Oral tab once daily [Active]; omeprazole 40 mg Oral cpDR 1 cap once jb4 daily [Active]; Seroquel 100 mg Oral tab 1.5 tab AT NIGHT [Active]; lisinopril 10 mg Oral tab 1 tab once daily for Hypertension [Active]; lithium carbonate 300 mg Oral cap 2 caps AT NIGHT [Active]; sulfasalazine 500 mg Oral tab BID [Active]; folic acid 1 mg Oral tab 1 tab once daily [Active]; - PMHx: 21:11 Hypertension; schizoaffective disorder; Bipolar disorder; jb4 - PSHx: 21:11 None; jb4 - Immunization history:: Adult Immunizations unknown. - Coronavirus screen:: The patient has NOT traveled to [place] in the past 14 days. Proceed with normal triage process as indicated. The patient has NOT had contact with known/suspected case of Coronavirus? Proceed with normal triage procedures. - Social history:: Smoking status: unknown. - Family history:: not pertinent. - Ebola Screening: : No symptoms or risks identified at this time. ROS: 22:30 Constitutional: Negative for fever, chills, and weight loss, Eyes: Negative for injury, doroteo pain, redness, and discharge, ENT: Negative for injury, pain, and discharge, Neck: Negative for injury, pain, and swelling, Cardiovascular: Negative for chest pain, palpitations, and edema, Respiratory: Negative for shortness of breath, cough, wheezing, and pleuritic chest pain, Abdomen/GI: Negative for abdominal pain, nausea, vomiting, diarrhea, and constipation, Back: Negative for injury and pain, : Negative for injury, bleeding, discharge, and swelling, MS/Extremity: Negative for injury and deformity, Skin: Negative for injury, rash, and discoloration, Psych: Negative for depression, anxiety, suicide ideation, homicidal ideation, and hallucinations, Allergy/Immunology: Negative for hives, rash, and allergies, Endocrine: Negative for neck swelling, polydipsia, polyuria, polyphagia, and marked weight changes, Hematologic/Lymphatic: Negative for swollen nodes, abnormal bleeding, and unusual bruising. 22:30 Neuro: Positive for altered mental status. Exam: 22:30 Constitutional: This is a well developed, well nourished patient who is awake, alert, doroteo and in no acute distress. Head/Face: Normocephalic, atraumatic. Eyes: Pupils equal round and reactive to light, extra-ocular motions intact. Lids and lashes normal. Conjunctiva and sclera are non-icteric and not injected. Cornea within normal limits. Periorbital areas with no swelling, redness, or edema. ENT: Nares patent. No nasal discharge, no septal abnormalities noted. Tympanic membranes are normal and external auditory canals are clear. Oropharynx with no redness, swelling, or masses, exudates, or evidence of obstruction, uvula midline. Mucous membranes moist. Neck: Trachea midline, no thyromegaly or masses palpated, and no cervical lymphadenopathy. Supple, full range of motion without nuchal rigidity, or vertebral point tenderness. No Meningismus. Chest/axilla: Normal chest wall appearance and motion. Nontender with no deformity. No lesions are appreciated. Cardiovascular: Regular rate and rhythm with a normal S1 and S2. No gallops, murmurs, or rubs. Normal PMI, no JVD. No pulse deficits. Respiratory: Lungs have equal breath sounds bilaterally, clear to auscultation and percussion. No rales, rhonchi or wheezes noted. No increased work of breathing, no retractions or nasal flaring. Abdomen/GI: Soft, non-tender, with normal bowel sounds. No distension or tympany. No guarding or rebound. No evidence of tenderness throughout. Back: No spinal tenderness. No costovertebral tenderness. Full range of motion. Male : Normal genitalia with no discharge or lesions. Skin: Warm, dry with normal turgor. Normal color with no rashes, no lesions, and no evidence of cellulitis. MS/ Extremity: Pulses equal, no cyanosis. Neurovascular intact. Full, normal range of motion. Psych: Awake, alert, with orientation to person, place and time. Behavior, mood, and affect are within normal limits. 22:30 Neuro: Orientation: to person, place, Not oriented to time, situation, Mentation: appropriate for stated age, no acute changes, Memory: unable to test, Cranial nerves: grossly normal, is grossly normal based on the patient's age, no acute changes, Cerebellar function: is grossly normal, is grossly normal based on the patient's age, no acute changes, Motor: moves all fours, Sensation: no obvious gross deficits, appropriate no acute changes, Gait: not tested. Babinski testing is normal. 22:47 Neck: External neck: is normal, no acute changes, C-spine: appears grossly normal, no doroteo acute changes, Thyroid: appears normal, no acute changes, Trachea: is midline with no obvious abnormalities, no acute changes, ROM/movement: is normal, no acute changes, Meningeal signs: are not present, Kernig's sign is negative, Brudzinski's sign is negative. Vital Signs: 21:11 BP 137 / 88; Pulse 105; Resp 18; Temp 99.3(O); Pulse Ox 98% on R/A; Weight 81.65 kg jb4 (R); Height 5 ft. 7 in. (170.18 cm) (R); Pain 0/10; 22:00 BP 127 / 104; Pulse 103; Resp 16; Pulse Ox 98% on R/A; jb4 23:39 BP 128 / 96; Pulse 116; Resp 16; Pulse Ox 98% on R/A; jb4 11/04 00:00 BP 132 / 96; Pulse 102; Resp 16; Pulse Ox 97% on R/A; jb4 01:30 BP 104 / 94; Pulse 99; Resp 16; Pulse Ox 98% on R/A; jb4 02:30 BP 132 / 97; Pulse 94; Resp 16; Pulse Ox 98% on R/A; jb4 03:30 BP 129 / 89; Pulse 94; Resp 19; Pulse Ox 98% on R/A; jb4 04:30 BP 113 / 74; Pulse 106; Resp 20; Pulse Ox 100% on R/A; jb4 05:00 BP 130 / 91; Pulse 95; Resp 19; Pulse Ox 97% on R/A; jb4 06:30 BP 132 / 96; Pulse 107; Resp 20; Pulse Ox 99% on R/A; jb4 07:30 BP 138 / 87; Pulse 101; Resp 18; Pulse Ox 98% on R/A; ph 08:30 BP 143 / 102; Pulse 99; Resp 16; Pulse Ox 99% on R/A; ph 09:30 BP 130 / 92; Pulse 103; Resp 18; Pulse Ox 99% on R/A; ph 11:00 BP 141 / 98; Pulse 104; Resp 16; Pulse Ox 98% on R/A; ph 02 21:11 Body Mass Index 28.19 (81.65 kg, 170.18 cm) [facility] MDM: 11/03 21:32 Patient medically screened. [facility] 22:33 Data reviewed: vital signs, nurses notes, lab test result(s), EKG, radiologic studies, [facility] CT scan, plain films. 11/04 11:07 ED course: Pt's brother here to take patient home. Brother reports this is not abnormal kb behavior for pt. Brother will get with [facility] for follow up and make sure pt takes prescribed medications.. 11/03 21:30 Order name: Acetaminophen; Complete Time: 22:33 [facility] 11/03 21:30 Order name: Basic Metabolic Panel; Complete Time: 22:33 [facility] 11/03 21:30 Order name: CBC with Diff; Complete Time: 22:33 [facility] 11/03 21:30 Order name: ETOH Level; Complete Time: 23:43 [facility] 11/03 21:30 Order name: Hepatic Function; Complete Time: 22:33 [facility] 11/03 21:30 Order name: PT-INR; Complete Time: 22:33 [facility] 11/03 21:30 Order name: Ptt, Activated; Complete Time: 22:33 [facility] 11/03 21:30 Order name: Salicylate; Complete Time: 23:43 [facility] 11/03 21:30 Order name: Urine Drug Screen; Complete Time: 23:43 [facility] 11/03 22:02 Order name: CT Head Brain wo Cont [facility] 11/04 02:21 Order name: Urine Dipstick--Ancillary (enter results); Complete Time: 05:39 cm6 11/03 21:30 Order name: EKG; Complete Time: 21:31 [facility] 11/03 21:30 Order name: EKG - Nurse/Tech; Complete Time: 21:48 [facility] 11/03 21:30 Order name: IV Saline Lock; Complete Time: 21:48 [facility] 11/03 21:30 Order name: Labs collected and sent; Complete Time: 21:48 [facility] 11/03 21:30 Order name: Urine Dipstick-Ancillary (obtain specimen); Complete Time: 00:07 [facility] 11/04 05:00 Order name: Desai; Complete Time: 06:14 [facility] 11/04 07:29 Order name: Diet Finger Food; Complete Time: 07:31 bd Administered Medications: 11/03 22:34 Not Given (Duplicate Order): NS 0.9% 1000 ml IV at 125 ml/hr continuous [facility] :18 Drug: Potassium Effervescent Tablet 50 mEq Route: PO; [facility] 11/04 00:12 Follow up: Response: No adverse reaction [facility] 11/03 23:18 Drug: NS 0.9% with KCl 20 mEq/L 1000 ml Route: IV; Rate: 200 ml/hr; Site: right forearm;[facility] 11/04 04:20 Follow up: Response: No adverse reaction; IV Status: Completed infusion [facility] Disposition: 15:45 Co-signature as Attending Physician, Devin Harris MD I agree with the assessment and [facility] plan of care. Disposition: 11/04/19 11:09 Discharged to Home. Impression: Bipolar disorder, Schizophrenia, Altered mental status, unspecified, Hypokalemia. - Condition is Stable. - Discharge Instructions: Bipolar Disorder, Schizophrenia. - Medication Reconciliation Form, Thank You Letter, Antibiotic Education, Prescription Opioid Use form. - Follow up: Emergency Department; When: As needed; Reason: Worsening of condition. Follow up: Private Physician; When: 2 - 3 days; Reason: Recheck today's complaints, Continuance of care, Re-evaluation by your physician. Signatures: Dispatcher [employer] [place]ona Phipps, SHIVANI-Griselda PARRISH-Devin Fox MD MD cha Hall, Patricia, RN RN ph Tam Lynch, RN RN jb4 Corrections: (The following items were deleted from the chart) 11:09 11/03 23:45 11/03/2019 23:45 Transfer ordered to Psych Facility. Diagnosis is kb Schizophrenia; Bipolar disorder; Altered mental status, unspecified; Hypokalemia. Reason for transfer: Higher level of care. Accepting physician is to psych. Condition is Fair. Problem is new. Symptoms have improved. [facility] 11/04 12:02 11:09 11/04/2019 11:09 Discharged to Home. Impression: Bipolar disorder; Schizophrenia; ph Altered mental status, unspecified; Hypokalemia. Condition is Stable. Forms are Medication Reconciliation Form, Thank You Letter, Antibiotic Education, Prescription Opioid Use. Follow up: Emergency Department; When: As needed; Reason: Worsening of condition. Follow up: Private Physician; When: 2 - 3 days; Reason: Recheck today's complaints, Continuance of care, Re-evaluation by your physician. kb
[2019-11-04 02:25] LABS: Urine Blood NEGATIVE (NEG); Urine Glucose NEGATIVE (NEG); Urine Protein NEGATIVE (NEG); Urine Specific Gravity 1.015 (1.005-1.030)
--- NOTE | 2019-11-04 07:50 | EKG ---
Test Date: 2019-11-03 Test Time: 21:37:32 Fire Alarm Inspector: REYES MEASUREMENT RESULTS: Intervals: Rate: 93 CO: 150 QRSD: 82 QT: 358 QTc: 445 [place]: P: 34 CO: 150 QRS: 5 T: -2 INTERPRETIVE STATEMENTS: Normal sinus rhythm with sinus arrhythmia Possible Left atrial enlargement Abnormal ECG Compared to ECG 07/06/2019 21:13:32 no significant change from previous ECG Electronically Signed On 11-04-19 07:49:52 [employer] AIDE by Eliot Harrell
--- NOTE | 2019-11-04 12:01 | RAD REPORT ---
EXAM DESCRIPTION: Head Brain Wo Cont CLINICAL HISTORY: 39 years Male CONFUSED COMPARISON: CT head without contrast dated 04/03/2019 TECHNIQUE: Contiguous axial images of the brain were obtained without the administration of intraven ous contrast.This exam was performed according to our departmental dose-optimization program which in cludes use of Automated Exposure Control, adjustment of the mA and/or kV according to patient size an d/or use of iterative reconstruction technique. DLP: 902 mGy*cm FINDINGS: Brain: No acute intracranial hemorrhage. No extra-axial collection. No mass effect or autumn iation. Ventricles: Within normal limits in size. Slight asymmetry of the temporal horns. Globes and orbits: No acute abnormality. Bones: No acute osseous finding Paranasal sinuses: Paranasal sinuses are clear. Mastoid air cells: Well pneumatized. Soft tissues: Within normal limits IMPRESSION: No acute intracranial abnormality. If clinical concern for acute ischemia, consider MRI brain without contrast for further evaluation. Electronically signed by: Pedro Chilel DO 11/03/2019 10:48 PM SIZE WORKER Due to temporary technical issues with the PACS/Fluency reporting system, reports are being signed by the in house radiologist as a courtesy to ensure prompt reporting. The interpreting radiologist is f ully responsible for the content of the report.
[2019-11-04 12:34] VITALS: BP 141/98; O2SAT 98
== END 2019-11-04 12:02 | disposition home or self-care (01) ==
LOC: ER 21:14
DX: R41.82 Altered mental status, unspecified (principal); F31.9 Bipolar disorder, unspecified; F20.9 Schizophrenia, unspecified; E87.6 Hypokalemia; I10 Essential (primary) hypertension
CPT/HCPCS: 36415; 70450; 80048; 80076; 80307; 80320; 80329; 81003; 85025; 85610; 85730; 93005; 96360; 96361; 99284; J7030

== ENCOUNTER 2019-12-24 14:25 | Emergency (ER) | payer SELFPAY ==
[2019-12-24] MEDS ORDERED: ZIPRASIDONE MESYLA 20 MG/VIAL IM ONE (14:35)
[2019-12-24] MEDS ORDERED: WATER FOR INJ,STERILE 10 ML ONE (14:36)
--- OUTSIDE RECORDS SUMMARY | 2019-12-24 15:23 | XMS REPORT ---
:[address] [facility] t Address [address] [place] [address] [place] [id number] Care Team Providers Name Role Phone Unavailable Unavailable Unavailable Problems This patient has no known problems. Allergies, Adverse Reactions, Alerts This patient has no known allergies or adverse reactions. Medications This patient has no known medications.
[2019-12-24 15:25] LABS: Absolute Lymphocytes (CBC) 0.6 K/uL (0.7-4.9); Basophils % 0.2 % (0-1.3); Hematocrit 39.6 % (39.6-49.0); Lymphocytes % 3.9 % (15.3-44.8); MPV 8.2 fL (7.6-11.3); RBC Red Blood Cell Count 4.39 M/uL (4.33-5.43)
[2019-12-24 15:32] LABS: Protime INR 1.09
[2019-12-24 15:49] LABS: Lithium 0.3 mmol/L (0.6-1.2); Salicylates Level 4.6 mg/dL (2.8-20)
[2019-12-24 16:00] LABS: Blood Morphology Comment NOT SEEN (NOT SEEN); Platelet Estimate ADEQ; Urine White Blood Cell Casts OK
[2019-12-24 16:06] LABS: ALT/SGPT 34 U/L (12-78); AST/SGOT 24 U/L (15-37); Albumin 4.1 g/dL (3.4-5.0); Alkaline Phosphatase 59 U/L (45-117); BUN Blood Urea Nitrogen 16 mg/dL (7-18); Bicarbonate 19 mmol/L (21-32); Bilirubin Direct 0.1 mg/dL (0-0.2); Bilirubin Total 0.5 mg/dL (0.2-1.0); Glucose Level 117 mg/dL (74-106); Protein, Total 6.8 g/dL (6.4-8.2); Sodium Level 143 mmol/L (136-145)
[2019-12-24 16:08] LABS: Barbiturates NEGATIVE (NEGATIVE); Benzodiazepines NEGATIVE (NEGATIVE); Cocaine NEGATIVE (NEGATIVE); METHAMPHETAM NEGATIVE (NEGATIVE); Methadone NEGATIVE (NEGATIVE); Opiates NEGATIVE (NEGATIVE); Phencyclidine NEGATIVE (NEGATIVE); THC Cannibis NEGATIVE (NEGATIVE)
--- NOTE | 2019-12-24 16:21 | RAD REPORT ---
EXAM DESCRIPTION: CT - [id number] - 12/24/2019 3:43 pm CLINICAL HISTORY: Trauma, head and neck injury. SWELLING COMPARISON: Facial Bones W/ Mpr dated 12/24/2019; Head Brain Wo Cont dated 11/03/2019 TECHNIQUE: Axial 5 mm thick images of the head were obtained. Axial 2 mm thick images of the cervical spine were obtained with sagittal and coronal reconstruction images generated and reviewed. All CT scans are performed using dose optimization technique as appropriate and may include automated exposure control or mA/KV adjustment according to patient size. FINDINGS: CT HEAD WITHOUT CONTRAST: No acute hemorrhage, hydrocephalus or extra-axial collection is identified.No areas of brain edema or midline shift. The paranasal sinuses and mastoids are clear.The calvarium is intact. CT CERVICAL SPINE WITHOUT CONTRAST: No fracture or subluxation.No prevertebral soft tissues swelling is identified. IMPRESSION: No acute intracranial or cervical spine findings.
--- NOTE | 2019-12-24 16:23 | RAD REPORT ---
EXAM DESCRIPTION: CT - CTFB CLINICAL HISTORY: TRAUMA Trauma, facial injury, pain and swelling. COMPARISON: No comparisons TECHNIQUE: Axial 2 mm thick images of the face were obtained with sagittal and coronal reconstructio n images. All CT scans are performed using dose optimization technique as appropriate and may include automated exposure control or mA/KV adjustment according to patient size. FINDINGS: Mild nasal bone fracture is seen with adjacent soft tissue swelling.Soft tissue swelling i s seen anterior to the right forehead.The mandible is intact. The globes and orbital contents are grossly unremarkable.Divergent gaze is noted.The paranasal sinuse s and mastoids are essentially clear. IMPRESSION: Mild nasal bone fracture.
[2019-12-24 16:57] LABS: Urine Blood TRACE (NEG); Urine Glucose NEGATIVE (NEG); Urine Protein NEGATIVE (NEG)
[2019-12-24] MEDS ORDERED: NA CHLORIDE 0.9% 1,000 ML ONE (17:12)
[2019-12-24] MEDS ORDERED: TETANUS & DIPHTHERIA TOX,ADULT 0.5 ML VIAL ONE (17:12)
[2019-12-24] MEDS ORDERED: KCL 20 MEQ/100 mL IVPB 20 MEQ/100 ML BAG IV ONE (17:13)
--- NOTE | 2019-12-24 20:54 | EDPHYS ---
Physician Documentation [facility] Name: Ravi Jaime Age: 39 yrs Sex: Male : 1980 Arrival Date: 12/24/2019 Time: 14:27 Bed 3 Private MD: ED Physician Alexis Dunham HPI: 12/23 14:45 This 39 yrs old Male presents to ER via EMS with complaints of Facial Trauma. cp 14:45 Trauma demographics: County: The injury occurred in [place] Location of Injury: The cp injury occurred at home, Date: December 23, 2019. Mechanism of injury: Fall:. Associated injuries: The patient sustained injury to the head, abrasion, contusion. Historical: - Allergies: 15:04 No Known Allergies; jl7 - Home Meds: 15:04 folic acid 1 mg Oral tab 1 tab once daily [Active]; lamotrigine 200 mg Oral tab once jl7 daily [Active]; lisinopril 10 mg Oral tab 1 tab once daily for Hypertension [Active]; lithium carbonate 300 mg Oral cap 2 caps AT NIGHT [Active]; omeprazole 40 mg Oral cpDR 1 cap once daily [Active]; Seroquel 100 mg Oral tab 1.5 tab AT NIGHT [Active]; sulfasalazine 500 mg Oral tab BID [Active]; - PMHx: 15:04 Bipolar disorder; Hypertension; schizoaffective disorder; jl7 - Immunization history:: Adult Immunizations unknown. - Social history:: Smoking status: unknown. ROS: 14:50 Constitutional: Negative for fever. cp 14:50 Cardiovascular: Negative for chest pain. cp 14:50 Respiratory: Negative for cough, shortness of breath, wheezing. 14:50 Abdomen/GI: Negative for abdominal pain. 14:50 Skin: Positive for abrasion(s), ecchymosis, swelling, of the face. 14:50 All other systems are negative. Exam: 14:45 ECG was reviewed by the Attending Physician. cp 14:55 Constitutional: The patient appears alert, awake, non-toxic, well developed, well cp nourished, unkempt. 14:55 Head/face: Noted is abrasion(s), that are mild, of the forehead, ecchymosis, that is cp moderate, swelling, that is mild, tenderness, that is moderate, of the nose. 14:55 Eyes: Periorbital structures: appear normal, Pupils: equal, round, and reactive to light and accomodation, Lids and lashes: appear normal, bilaterally. 14:55 ENT: External ear(s): are unremarkable, Ear canal(s): are normal, clear, TM's: are normal, no evidence of bulging, no erythema, Nose: External nose: swelling is noted, Nasal septum: no septal hematoma appreciated, clotted blood, in both nares, Mouth: Lips: moist, Oral mucosa: moist, Posterior pharynx: Airway: no evidence of obstruction, patent. 14:55 Neck: C-spine: vertebral tenderness, is not appreciated, crepitus, is not appreciated, ROM/movement: limited range of motion, is not appreciated. 14:55 Chest/axilla: Inspection: normal, Palpation: is normal, no crepitus, no tenderness. 14:55 Cardiovascular: Rate: tachycardic, Rhythm: regular, Edema: is not appreciated, JVD: is not appreciated. 14:55 Respiratory: the patient does not display signs of respiratory distress, Respirations: normal, no use of accessory muscles, labored breathing, is not present, Breath sounds: are clear throughout, no decreased breath sounds, no stridor, no wheezing. 14:55 Abdomen/GI: Inspection: abdomen appears normal, Palpation: abdomen is soft and non-tender, in all quadrants. 14:55 Psych: Behavior/mood is uncooperative. Vital Signs: 14:52 BP 110 / 74; Pulse 124; Resp 18 S; Temp 99.6(TE); Pulse Ox 96% on R/A; Weight 108.86 iw kg; Height 5 ft. 7 in. (170.18 cm); 15:52 BP 119 / 75; Pulse 110; Resp 18; Pulse Ox 95% ; jl7 19:30 BP 122 / 81; Pulse 101; Resp 19 S; Pulse Ox 97% on R/A; jl7 21:03 BP 134 / 70; Pulse 96; Resp 18; Temp 99.0; Pulse Ox 97% ; ds4 21:19 BP 122 / 78; Pulse 90; Resp 18; Temp 98.1; Pulse Ox 95% on R/A; jv1 14:52 Body Mass Index 37.59 (108.86 kg, 170.18 cm) iw MDM: 14:33 Patient medically screened. cp 15:00 Differential diagnosis: closed head injury, facial fracture, multiple trauma. cp 17:00 Data reviewed: vital signs, nurses notes, lab test result(s), EKG, radiologic studies. cp 17:00 Test interpretation: by ED physician or midlevel provider: ECG. cp 04 14:32 Order name: Acetaminophen; Complete Time: 16:30 cp 12/23 14:32 Order name: Basic Metabolic Panel; Complete Time: 16:30 cp 12/23 16:30 Interpretation: Normal except: K 3.0; CL 112; CO2 19; GLUC 117; GFR 68; CA 8.3. cp 12/23 14:32 Order name: CBC with Diff; Complete Time: 16:08 cp 12/23 16:08 Interpretation: Normal except: WBC 15.7; HGB 13.1; ASIM% 90.5; LYM% 3.9; NEUT A 14.2; cp LYMA 0.6. 12/23 14:32 Order name: ETOH Level; Complete Time: 16:08 cp 12/23 14:32 Order name: Hepatic Function; Complete Time: 16:30 cp 12/23 14:32 Order name: PT-INR; Complete Time: 16:08 cp 12/23 14:32 Order name: CT Head C Spine; Complete Time: 16:30 cp 12/23 14:32 Order name: CT Facial Bones W/O Con; Complete Time: 16:30 cp 12/23 14:32 Order name: Ptt, Activated; Complete Time: 16:08 cp 12/23 14:32 Order name: Salicylate; Complete Time: 16:08 cp 12/23 14:32 Order name: Urine Drug Screen; Complete Time: 16:30 cp 12/23 14:33 Order name: [place]; Complete Time: 16:08 cp 12/23 16:08 Interpretation: Abnormal: LI 0.3. cp 12/23 16:01 Order name: CBC Smear Scan; Complete Time: 16:08 EDMS 12/23 16:09 Order name: Urine Dipstick--Ancillary (enter results); Complete Time: 16:59 eb 12/23 16:59 Interpretation: Normal except: UBLD TRACE. cp 12/23 14:32 Order name: EKG; Complete Time: 14:33 cp 12/23 14:32 Order name: EKG - Nurse/Tech; Complete Time: 15:37 cp 12/23 14:32 Order name: IV Saline Lock; Complete Time: 15:37 cp 12/23 14:32 Order name: Labs collected and sent; Complete Time: 15:37 cp 12/23 14:32 Order name: Urine Dipstick-Ancillary (obtain specimen); Complete Time: 18:24 cp 12/23 16:32 Order name: Wound dressing; Complete Time: 19:19 cp EC:45 Rate is 142 beats/min. Rhythm is regular. QRS interval is normal. QT interval is cp normal. Interpreted by me. Reviewed by me. Administered Medications: 14:50 Drug: Geodon 10 mg Route: IM; Site: left deltoid; jl7 17:18 Follow up: Response: No adverse reaction jl7 15:00 Drug: NS 0.9% 1000 ml Route: IV; Rate: 1 bolus; Site: right antecubital; jl7 17:18 Follow up: Response: No adverse reaction; IV Status: Completed infusion; IV Intake: jl7 1000ml 17:17 Drug: Potassium Chloride 20 mEq Route: IV; Rate: calculated rate; Site: right jl7 antecubital; 18:20 Follow up: Response: No adverse reaction; IV Status: Completed infusion jl7 17:18 Drug: NS 0.9% 1000 ml Route: IV; Rate: 1 bolus; Site: right antecubital; jl7 18:20 Follow up: Response: No adverse reaction; IV Intake: 1000ml jl7 17:19 Not Given (Other Intervention Used): Ativan 1 mg IM once jl7 17:19 Not Given (Other Intervention Used): Benadryl 25 mg IM once jl7 19:28 Drug: Tetanus-Diphtheria Toxoid Adult 0.5 ml {Nuclear Security Officer: Eko. Exp: jl7 10/30/2021. Lot #: [id number]. } Route: IM; Site: right deltoid; 20:00 Follow up: Response: No adverse reaction jb4 Disposition: 18:00 Chart complete. 12/24 09:46 Co-signature as Attending Physician, Alexis Dunham MD I agree with the assessment and kdr plan of care. Disposition: 12/24/19 20:53 Discharged to Home. Impression: Fracture of nasal bones. - Condition is Stable. - Discharge Instructions: Nasal Fracture. - Medication Reconciliation Form, Thank You Letter, Antibiotic Education, Prescription Opioid Use form. - Follow up: Adilia Ontiveros; When: 2 - 3 days; Reason: nasal fracture. - Problem is new. - Symptoms are unchanged. Signatures: Dispatcher [employer] EDMS Alexis Dunham MD MD kdr Mickail, Joel, PA PA jmm Page, Corey, PA PA cp Leal, Jahala, RN RN jl7 Deyanira Lau RN RN jv1 Tam Lynch RN jb4 Corrections: (The following items were deleted from the chart) 12/23 16:30 16:30 Normal except: K 3.0; CL 112; CO2 19; GLUC 117; GFR 68. cp cp 21:22 20:53 12/24/2019 20:53 Discharged to Home. Impression: Fracture of nasal bones. jv1 Condition is Stable. Discharge Instructions: Nasal Fracture. Forms are Medication Reconciliation Form, Thank You Letter, Antibiotic Education, Prescription Opioid Use. Follow up: Adilia Ontiveros; When: 2 - 3 days; Reason: nasal fracture. Problem is new. Symptoms are unchanged. [facility]
--- NOTE | 2019-12-24 20:54 | ER ---
Nurse's Notes [facility] Name: Ravi Jaime Age: 39 yrs Sex: Male : 1980 Arrival Date: 12/24/2019 Time: 14:27 Bed 3 Private MD: Diagnosis: Fracture of nasal bones Presentation: 12/23 14:27 Chief complaint: EMS states: toned out by pt's brother, reported he was doing a welfare 7 check and found him with a busted nose and lumps on the forehead, pt reports he fell on him face while doing laundry. Coronavirus screen: Proceed with normal triage. Patient denies a cough. Patient denies shortness of breath or difficulty breathing. Patient denies measured and/or subjective temperature greater than 100.4F prior to today's visit. Patient denies travel on a cruise ship or to a country the [facility] currently lists as an affected area. Patient denies contact with known and/or suspected case of COVID-19. Ebola Screen: No symptoms or risks identified at this time. Initial Sepsis Screen: Does the patient meet any 2 criteria? No. Patient's initial sepsis screen is negative. Does the patient have a suspected source of infection? No. Patient's initial sepsis screen is negative. Risk Assessment: Do you want to hurt yourself or someone else? Patient reports no desire to harm self or others. Onset of symptoms is unknown. Care prior to arrival: IV initiated. 18 GA, in the right antecubital area. 14:27 Method Of Arrival: EMS: [facility] 14:27 Acuity: GERALDINE 3 jl7 Triage Assessment: 14:30 General: Appears in no apparent distress. uncomfortable, unkempt, Behavior is drowsy, jl7 uncooperative. Pain: Denies pain. EENT: Nares dried blood noted to bilateral nares. Neuro: Level of Consciousness is obeys commands, Oriented to person, place, time, situation. Cardiovascular: Patient's skin is warm and dry. Respiratory: Airway is patent Respiratory effort is even, unlabored, Respiratory pattern is regular, symmetrical. Derm: Skin is pink, warm \T\ dry. Musculoskeletal: Swelling present in face. Historical: - Allergies: 15:04 No Known Allergies; jl7 - Home Meds: 15:04 folic acid 1 mg Oral tab 1 tab once daily [Active]; lamotrigine 200 mg Oral tab once jl7 daily [Active]; lisinopril 10 mg Oral tab 1 tab once daily for Hypertension [Active]; lithium carbonate 300 mg Oral cap 2 caps AT NIGHT [Active]; omeprazole 40 mg Oral cpDR 1 cap once daily [Active]; Seroquel 100 mg Oral tab 1.5 tab AT NIGHT [Active]; sulfasalazine 500 mg Oral tab BID [Active]; - PMHx: 15:04 Bipolar disorder; Hypertension; schizoaffective disorder; jl7 - Immunization history:: Adult Immunizations unknown. - Social history:: Smoking status: unknown. Screenin:30 Abuse screen: Denies threats or abuse. Denies injuries from another. Nutritional jl7 screening: No deficits noted. Tuberculosis screening: No symptoms or risk factors identified. Fall Risk IV access (20 points). Gait- Impaired (20 pts.). Mental Status- Overestimates/Forgets Limitations (15 pts.). Total Hoffman Fall Scale indicates High Risk Score (45 or more points). Fall prevention measures have been instituted. Side Rails Up X 2 Placed Close to Nursing Station Frequent Obs/Assessments Occuring As available patient and family educated on Fall Prevention Program and Strategies. Assessment: 14:30 General: see triage assessment. jl7 16:00 Reassessment: Pt laying in bed with eyes closed, respirations even and unlabored, no jl7 signs of distress noted at this time. 16:30 Reassessment: Pt refusing to keep BP cuff and pulse ox on. jl7 17:00 Reassessment: Patient appears in no apparent distress at this time. No changes from jl7 previously documented assessment. Patient and/or family updated on plan of care and expected duration. Pain level reassessed. 18:00 Reassessment: Patient appears in no apparent distress at this time. No changes from jl7 previously documented assessment. Patient and/or family updated on plan of care and expected duration. Pain level reassessed. 19:10 Reassessment: Patient appears in no apparent distress at this time. Patient and/or jb4 family updated on plan of care and expected duration. Pain level reassessed. Patient is alert, oriented x 3, equal unlabored respirations, skin warm/dry/pink. PT d/c'ed his own IV. IV catheter found under patient connected to IV fluids. IV fluids empty, bed is saturated. Provider notifed. 20:00 Reassessment: Patient appears in no apparent distress at this time. Patient and/or jb4 family updated on plan of care and expected duration. Pain level reassessed. Patient is alert, oriented x 3, equal unlabored respirations, skin warm/dry/pink. Vital Signs: 14:52 BP 110 / 74; Pulse 124; Resp 18 S; Temp 99.6(TE); Pulse Ox 96% on R/A; Weight 108.86 iw kg; Height 5 ft. 7 in. (170.18 cm); 15:52 BP 119 / 75; Pulse 110; Resp 18; Pulse Ox 95% ; jl7 19:30 BP 122 / 81; Pulse 101; Resp 19 S; Pulse Ox 97% on R/A; jl7 21:03 BP 134 / 70; Pulse 96; Resp 18; Temp 99.0; Pulse Ox 97% ; ds4 21:19 BP 122 / 78; Pulse 90; Resp 18; Temp 98.1; Pulse Ox 95% on R/A; jv1 14:52 Body Mass Index 37.59 (108.86 kg, 170.18 cm) iw ED Course: 14:27 Patient arrived in ED. iw 14:30 Devin Pedraza PA is PHCP. cp 14:30 Alexis Dunham MD is Attending Physician. cp 14:30 Arm band placed on right wrist. jl7 14:30 Patient has correct armband on for positive identification. Placed in gown. Bed in low jl7 position. Call light in reach. Side rails up X2. property assessment monitor on. Pulse ox on. NIBP on. Warm blanket given. 14:30 Maintain EMS IV. Dressing intact. Good blood return noted. Site clean \T\ dry. Gauge \T\ jl 7 site: 18 right AC. 14:45 Radiology exam delayed due to pt unable to hold still at this time; Nurse said to come vm2 back in approx 15 minutes. 14:57 Maria Luz David RN is Primary Nurse. jl7 15:00 Initial lab(s) drawn, by ED staff, sent to lab. jl7 15:02 Triage completed. jl7 15:30 Urine collected: clean catch specimen, clear. jl7 15:44 CT Head C Spine In Process Unspecified. EDMS 15:44 CT Facial Bones W/O Con In Process Unspecified. EDMS 18:24 PHCP role handed off by Devin Pedraza PA jm 18:24 Jigar Johnson PA is PHCP. jmm 19:27 pt removed his own IV. jl7 19:33 Primary Nurse role handed off by Maria Luz David, ALEXANDRA jb4 19:33 Tam Lynch, ALEXANDRA is Primary Nurse. jb4 20:53 Adilia Ontiveros MD is Referral Physician. [facility] 21:00 No provider procedures requiring assistance completed. jb4 Administered Medications: 14:50 Drug: Geodon 10 mg Route: IM; Site: left deltoid; jl7 17:18 Follow up: Response: No adverse reaction jl7 15:00 Drug: NS 0.9% 1000 ml Route: IV; Rate: 1 bolus; Site: right antecubital; jl7 17:18 Follow up: Response: No adverse reaction; IV Status: Completed infusion; IV Intake: jl7 1000ml 17:17 Drug: Potassium Chloride 20 mEq Route: IV; Rate: calculated rate; Site: right jl7 antecubital; 18:20 Follow up: Response: No adverse reaction; IV Status: Completed infusion jl7 17:18 Drug: NS 0.9% 1000 ml Route: IV; Rate: 1 bolus; Site: right antecubital; jl7 18:20 Follow up: Response: No adverse reaction; IV Intake: 1000ml jl7 17:19 Not Given (Other Intervention Used): Ativan 1 mg IM once jl7 17:19 Not Given (Other Intervention Used): Benadryl 25 mg IM once jl7 19:28 Drug: Tetanus-Diphtheria Toxoid Adult 0.5 ml {[employer]: [employer]. Exp: jl7 10/30/2021. Lot #: [id number]. } Route: IM; Site: right deltoid; 20:00 Follow up: Response: No adverse reaction jb4 Intake: 17:18 IV: 1000ml; Total: 1000ml. jl7 18:20 IV: 1000ml; Total: 2000ml. jl7 Outcome: 20:53 Discharge ordered by . jmm 21:20 Discharged to home via wheelchair, with family. jv1 21:20 Condition: good 21:20 Discharge instructions given to patient, family, Instructed on discharge instructions, follow up and referral plans. Demonstrated understanding of instructions, follow-up care. 21:22 Patient left the ED. jv1 Signatures: Dispatcher [employer] EDJigar Martinez PA PA jmm Williams, Irene, RN RN Sam Hartman ds4 Devin Pedraza PA PA cp Bryson, James RN RN jb4 Maria Luz David RN RN jl7 Brianna Mcclelland 2 Deyanira Lau RN RN jv1 Corrections: (The following items were deleted from the chart) 19:24 15:30 Reassessment: Pt refusing to keep BP cuff and pulse ox on jl7 jl7 19:49 19:10 Reassessment: Patient appears in no apparent distress at this time. Patient jb4 and/or family updated on plan of care and expected duration. Pain level reassessed. PT d/c'ed his own IV. IV catheter found under patient connected to IV fluids. IV fluids empty, bed is saturated. Provider notifed. jb4 12/24 01:04 12/23 21:20 Reassessment: jv1 jv1
[2019-12-24 22:00] VITALS: BP 127/82; TEMP 99; O2SAT 99
--- NOTE | 2019-12-25 07:37 | EKG ---
Test Date: 2019-12-24 Test Time: 14:39:15 [employer]: HALIMA MEASUREMENT RESULTS: Intervals: Rate: 142 DC: QRSD: 84 QT: 358 QTc: 550 [place]: P: DC: QRS: 51 T: 3 INTERPRETIVE STATEMENTS: Supraventricular tachycardia Nonspecific ST and T wave abnormality Abnormal ECG Compared to ECG 11/03/2019 21:37:32 ST (T wave) deviation now present Sinus rhythm no longer present Sinus arrhythmia no longer present Electronically Signed On 12-25-19 07:34:52 CDT by Avni Whitney
== END 2019-12-24 21:22 | disposition home or self-care (01) ==
LOC: ER 14:25
DX: S02.2XXA Fracture of nasal bones, initial encounter for closed fracture (principal); W19.XXXA Unspecified fall, initial encounter; Y93.E2 Activity, laundry; Y92.9 Unspecified place or not applicable; I10 Essential (primary) hypertension; F25.0 Schizoaffective disorder, bipolar type; Z23 Encounter for immunization
CPT/HCPCS: 36415; 70450; 70486; 72125; 76377; 80048; 80076; 80178; 80307; 80320; 80329; 81003; 85025; 85610; 85730; 90471; 90714; 93005; 96361; 96365; 96372; 99284; J3486; J7030

== ENCOUNTER 2020-05-15 15:40 | Inpatient (IN) | payer SELFPAY ==
--- OUTSIDE RECORDS SUMMARY | 2020-05-15 15:41 | XMS REPORT | Continuity of Care Document ---
:1980 Author Organization [facility] t Address [address] [place] [address] [place] [id number] Care Team Providers Name Role Phone Unavailable Unavailable Unavailable Problems This patient has no known problems. Allergies, Adverse Reactions, Alerts This patient has no known allergies or adverse reactions. Medications This patient has no known medications. Procedures This patient has no known procedures. Results This patient has no known results.
[2020-05-15] MEDS ORDERED: HALOPERIDOL LACT 5 MG/ML INJ ONE ×2 (16:26→18:31)
[2020-05-15] MEDS ORDERED: DIPHENHYDRAMINE 50 MG/ML VIAL ONE ×2 (16:26→18:31)
[2020-05-15 17:00] LABS: Absolute Lymphocytes (CBC) 0.8 K/uL (0.7-4.9); Basophils % 0.3 % (0-1.3); Hematocrit 43.9 % (39.6-49.0); Lymphocytes % 4.2 % (15.3-44.8); MPV 8.4 fL (7.6-11.3); RBC Red Blood Cell Count 4.83 M/uL (4.33-5.43)
[2020-05-15] MEDS ORDERED: NA CHLORIDE 0.9% 2,000 ML ONE (17:03)
[2020-05-15 17:05] LABS: Protime INR 1.19
[2020-05-15 17:23] LABS: ALT/SGPT 34 U/L (12-78); Albumin 4.5 g/dL (3.4-5.0); Alkaline Phosphatase 79 U/L (45-117); BUN Blood Urea Nitrogen 22 mg/dL (7-18); Bicarbonate 21 mmol/L (21-32); Bilirubin Direct 0.2 mg/dL (0-0.2); Bilirubin Total 0.7 mg/dL (0.2-1.0); Glucose Level 132 mg/dL (74-106); Protein, Total 7.8 g/dL (6.4-8.2); Sodium Level 147 mmol/L (136-145)
[2020-05-15 17:36] LABS: AST/SGOT 46 U/L (15-37); Potassium 3.2 mmol/L (3.5-5.1)
[2020-05-15 17:47] LABS: Lithium 0.7 mmol/L (0.6-1.2); Salicylates Level 4.5 mg/dL (2.8-20)
[2020-05-15 17:56] LABS: Blood Morphology Comment NOT SEEN (NOT SEEN); Platelet Estimate ADEQ; White Blood Cell Scan OK
--- NOTE | 2020-05-15 18:37 | EDPHYS ---
Physician Documentation [facility] Name: Ravi Jaime Age: 39 yrs Sex: Male : 1980 Arrival Date: 05/15/2020 Time: 15:46 Bed 26 Private MD: ED Physician Jo Ann Lombardo HPI: 05/15 17:20 This 39 yrs old Male presents to ER via EMS with complaints of Psych Problem. ma2 17:20 The patient presents to the emergency department with schezophrenia . Onset: The ma2 symptoms/episode began/occurred suddenly, 1 day(s) ago. Associated signs and symptoms: Pertinent negatives: chest pain, fever, hallucinations, homicidal ideation, paranoia, substance abuse, suicide ideation. Severity of symptoms: At their worst the symptoms were moderate in the emergency department the symptoms are unchanged. The patient has experienced similar episodes in the past. Historical: - Allergies: 16:06 No Known Allergies; em - Home Meds: 16:06 ramipril 5 mg Oral cap 1 cap once daily [Active]; quetiapine 50 mg oral tab 1 tab em [Active]; omeprazole 40 mg Oral cpDR 1 cap once daily [Active]; quetiapine 300 mg oral tab 1 tab once daily [Active]; folic acid 1 mg Oral tab 1 tab once daily [Active]; lithium carbonate 300 mg Oral cap 1 cap AT NIGHT [Active]; lithium carbonate 450 mg Oral TbER 1 tab daily [Active]; sulfasalazine 500 mg Oral tab 1 tab BID [Active]; - PMHx: 16:06 schizoaffective disorder; Hypertension; Bipolar disorder; em - Immunization history:: Adult Immunizations unknown. - Social history:: Smoking status: unknown. ROS: 17:21 Constitutional: Negative for fever, chills, and weight loss. ma2 17:21 All other systems are negative. Exam: 17:21 Constitutional: This is a well developed, well nourished patient who is awake, alert, ma2 and in no acute distress. Head/Face: Normocephalic, atraumatic. Eyes: Pupils equal round and reactive to light, extra-ocular motions intact. Lids and lashes normal. Conjunctiva and sclera are non-icteric and not injected. Cornea within normal limits. Periorbital areas with no swelling, redness, or edema. ENT: Nares patent. No nasal discharge, no septal abnormalities noted. Tympanic membranes are normal and external auditory canals are clear. Oropharynx with no redness, swelling, or masses, exudates, or evidence of obstruction, uvula midline. Mucous membranes moist. Neck: Trachea midline, no thyromegaly or masses palpated, and no cervical lymphadenopathy. Supple, full range of motion without nuchal rigidity, or vertebral point tenderness. No Meningismus. Chest/axilla: Normal chest wall appearance and motion. Nontender with no deformity. No lesions are appreciated. Cardiovascular: Regular rate and rhythm with a normal S1 and S2. No gallops, murmurs, or rubs. Normal PMI, no JVD. No pulse deficits. Respiratory: Lungs have equal breath sounds bilaterally, clear to auscultation and percussion. No rales, rhonchi or wheezes noted. No increased work of breathing, no retractions or nasal flaring. Abdomen/GI: Soft, non-tender, with normal bowel sounds. No distension or tympany. No guarding or rebound. No evidence of tenderness throughout. Back: No spinal tenderness. No costovertebral tenderness. Full range of motion. Skin: Warm, dry with normal turgor. Normal color with no rashes, no lesions, and no evidence of cellulitis. MS/ Extremity: Pulses equal, no cyanosis. Neurovascular intact. Full, normal range of motion. Neuro: Awake and alert, GCS 15, oriented to person, place, time, and situation. Cranial nerves II-XII grossly intact. Motor strength 5/5 in all extremities. Sensory grossly intact. Cerebellar exam normal. Normal gait. 17:21 Psych: Behavior/mood is anxious, aggressive, uncooperative, Affect is animated, Judgement / Insight is impaired. Delusions/hallucinations are present and described as states he is . 17:22 MS/ Extremity: Pulses equal, no cyanosis. Neurovascular intact. Full, normal range ma2 of motion. Neuro: Awake and alert,. Cranial nerves II-XII grossly intact. Motor strength 5/5 in all extremities. Sensory grossly intact. Cerebellar exam normal. Normal gait. 17:22 Psych: Delusions/hallucinations are present and described as he hear voices wisper to self, sees people, he does not communicate with me . Vital Signs: 15:54 BP 136 / 76; Pulse 112; Resp 20; Pulse Ox 100% on R/A; em 16:43 Temp 100.1(O); em 17:09 BP 137 / 82; Pulse 135; Resp 24; Pulse Ox 100% on R/A; em 18:15 BP 152 / 70; Pulse 148; Resp 28; Pulse Ox 100% on R/A; em 18:25 BP 152 / 70; Pulse 148; Resp 28; Pulse Ox 100% on R/A; em MDM: 15:47 Patient medically screened. [facility] 17:23 Differential diagnosis: acute psychotic break, depression, psychosis secondary to ma2 non-compliance. 18:31 Data reviewed: vital signs, nurses notes. Counseling: I had a detailed discussion with [facility] the patient and/or guardian regarding: the historical points, exam findings, and any diagnostic results supporting the discharge/admit diagnosis, the presence of at least one elevated blood pressure reading (>120/80) during this emergency department visit, the need for further work-up and treatment in the hospital. ED course: patient is tachycardic he is able to engage in conversatoin he is at his baseline as far as psych issue goes.. he does not have si/hi or over hallucination, he states he accidently overdosed lithium however his level is therapeutic.. will check lithium q 4 hrs and give him ivf, poison control recommends admission, his creatinine is elevated and wbc is 19K.. no source of infection yet, if any. he is still tachycardic and needs to be onserved .. his dipstick ua is wnl discussed and accepted for admission by dr. christopher, . 05/15 16:02 Order name: Acetaminophen [facility] 05/15 16:02 Order name: Basic Metabolic Panel [facility] 05/15 16:02 Order name: CBC with Diff [facility] 05/15 16:02 Order name: ETOH Level; Complete Time: 17:54 [facility] 05/15 16:02 Order name: Hepatic Function; Complete Time: 17:54 [facility] 05/15 16:02 Order name: PT-INR; Complete Time: 17:54 [facility] 05/15 16:02 Order name: Ptt, Activated; Complete Time: 17:54 [facility] 05/15 16:02 Order name: Salicylate; Complete Time: 17:54 [facility] 05/15 16:02 Order name: Urine Drug Screen [facility] 05/15 16:02 Order name: Vanleer; Complete Time: 17:54 dc2 05/15 16:03 Order name: Acetaminophen Level; Complete Time: 17:54 EDMS 05/15 16:03 Order name: Basic Metabolic Panel; Complete Time: 17:54 EDMS 05/15 16:03 Order name: CBC with Automated Diff; Complete Time: 17:59 EDMS 05/15 17:04 Order name: CBC Smear Scan; Complete Time: 17:59 EDMS 05/15 18:05 Order name: CBC with Automated Diff EDMS 05/15 18:05 Order name: CBC with Automated Diff EDMS 05/15 18:05 Order name: Comprehensive Metabolic Panel [facility] 05/15 18:05 Order name: Comprehensive Metabolic Panel [facility] 05/15 18:07 Order name: Urinalysis [facility] 05/15 18:07 Order name: Blood Culture [facility] 05/15 18:43 Order name: Urine Dipstick--Ancillary (enter results) 05/15 19:08 Order name: Urine Dipstick-Ancillary [facility] 05/15 19:35 Order name: COVID-19 [facility] 05/15 21:07 Order name: Glucose, Ancillary Testing [facility] 05/15 22:11 Order name: CORONAVIRUS [facility] 05/15 23:00 Order name: Vanleer [facility] 05/15 23:12 Order name: SARS-COV-2 RT PCR [facility] 05/16 00:10 Order name: Glucose, Ancillary Testing [facility] 05/16 06:11 Order name: Glucose, Ancillary Testing [facility] 05/16 06:51 Order name: Vanleer [facility] 05/15 16:02 Order name: EKG; Complete Time: 16:03 [facility] 05/15 16:02 Order name: EKG - Nurse/Tech; Complete Time: 17:01 [facility] 05/15 16:02 Order name: IV Saline Lock; Complete Time: 17:01 [facility] 05/15 16:02 Order name: Labs collected and sent; Complete Time: 16:07 [facility] 05/15 16:02 Order name: Urine Dipstick-Ancillary (obtain specimen); Complete Time: 18:52 [facility] 05/15 17:58 Order name: Chest Single View XRAY [facility] 05/15 18:05 Order name: CONS Pharmacy Consult [facility] 05/15 18:05 Order name: NPO [facility] 05/15 19:25 Order name: Restraint:Non-Violent: received verbal order from Dr. Dillon, pt restless em and confused; Complete Time: 19:25 05/15 20:35 Order name: RAD [facility] 05/16 06:51 Order name: Salicylates Level [facility] 05/16 10:12 Order name: T4 Free [facility] 05/16 10:12 Order name: Thyroid Stimulating Hormone [facility] 05/16 10:56 Order name: Procalcitonin [facility] 05/16 17:38 Order name: Basic Metabolic Panel EDMS Administered Medications: 16:19 Drug: Benadryl 50 mg Route: IM; Site: right gluteus; em 16:40 Follow up: Response: No adverse reaction; Marked relief of symptoms em 16:20 Drug: HALdol (as decanoate) 10 mg Route: IM; Site: right deltoid; em 16:40 Follow up: Response: No adverse reaction; Marked relief of symptoms em 16:58 Drug: NS 0.9% 2000 ml Route: IV; Rate: 1 bolus; Site: left forearm; em 18:45 Follow up: IV Status: Completed infusion; IV Intake: 2000ml em 18:25 Drug: HALdol 5 mg Route: IVP; Site: left wrist; ss 18:39 Drug: Benadryl 50 mg Route: IVP; Site: left wrist; ss Disposition: 05/15/20 18:37 Hospitalization ordered by Vijay Rivera for Observation. Preliminary diagnosis are Tachycardia, unspecified, Encounter for observation for suspected toxic effect from ingested substance ruled out. - Bed requested for [facility] ER HOLD. - Status is Observation. eb1 - Condition is Stable. - Problem is new. - Symptoms are unchanged. Signatures: Dispatcher [employer] EDMI Rashi Moscoso RN ALEXANDRA Cheryl Mishra RN ALEXANDRA Manda Saeed RN RN Nicola Santos RN RN ja1 Alzahri, Mohammad, MD MD ma2 Basinger, Emily, RN RN eb1 Corrections: (The following items were deleted from the chart) 18:39 18:37 Hospitalization Ordered by Vijay Rivera MD for Observation. Preliminary ja1 diagnosis is Tachycardia, unspecified; Encounter for observation for suspected toxic effect from ingested substance ruled out. Bed requested for Telemetry/MedSurg (observation). Status is Observation. Condition is Stable. Problem is new. Symptoms are unchanged. ma2 18:39 18:39 05/15/2020 18:37 Hospitalization Ordered by Vijay Rivera MD for Observation. ja1 Preliminary diagnosis is Tachycardia, unspecified; Encounter for observation for suspected toxic effect from ingested substance ruled out. Bed requested for [facility] ER HOLD. Status is Observation. Condition is Stable. Problem is new. Symptoms are unchanged. ja1 05/16 19:30 08 18:39 05/15/2020 18:37 Hospitalization Ordered by Vijay Rivera MD for eb1 Observation. Preliminary diagnosis is Tachycardia, unspecified; Encounter for observation for suspected toxic effect from ingested substance ruled out. Bed requested for [facility] ER HOLD. Status is Observation. Condition is Stable. Problem is new. Symptoms are unchanged. ja1
--- NOTE | 2020-05-15 18:37 | ER ---
Nurse's Notes [facility] Name: Ravi Jaime Age: 39 yrs Sex: Male : 1980 Arrival Date: 05/15/2020 Time: 15:46 Bed 26 Private MD: Diagnosis: Tachycardia, unspecified;Encounter for observation for suspected toxic effect from ingested substance ruled out Presentation: 05/15 15:54 Chief complaint: EMS states: called out for acting different, brother reports he has a em history of schizophrenia, there was a bottle of lithium found next to pt, pt keeps repeating "lithium," pt awake and unable to follow commands, making spastic movements. Coronavirus screen: Client denies travel out of the [place] in the last 14 days. Ebola Screen: Patient negative for fever greater than or equal to 101.5 degrees Fahrenheit, and additional compatible Ebola Virus Disease symptoms Patient denies exposure to infectious person. Patient denies travel to an Ebola-affected area in the 21 days before illness onset. No symptoms or risks identified at this time. Initial Sepsis Screen: Does the patient meet any 2 criteria? Altered Mental Status. HR > 90 bpm. Yes Does the patient have a suspected source of infection? No. Patient's initial sepsis screen is negative. Risk Assessment: Do you want to hurt yourself or someone else? Patient reports no desire to harm self or others. Onset of symptoms was May 15, 2020. 15:54 Method Of Arrival: EMS: [facility] em 15:54 Acuity: GERALDINE 2 em Historical: - Allergies: 16:06 No Known Allergies; em - Home Meds: 16:06 ramipril 5 mg Oral cap 1 cap once daily [Active]; quetiapine 50 mg oral tab 1 tab em [Active]; omeprazole 40 mg Oral cpDR 1 cap once daily [Active]; quetiapine 300 mg oral tab 1 tab once daily [Active]; folic acid 1 mg Oral tab 1 tab once daily [Active]; lithium carbonate 300 mg Oral cap 1 cap AT NIGHT [Active]; lithium carbonate 450 mg Oral TbER 1 tab daily [Active]; sulfasalazine 500 mg Oral tab 1 tab BID [Active]; - PMHx: 16:06 schizoaffective disorder; Hypertension; Bipolar disorder; em - Immunization history:: Adult Immunizations unknown. - Social history:: Smoking status: unknown. Screenin:54 Abuse screen: Denies threats or abuse. Nutritional screening: No deficits noted. em Tuberculosis screening: No symptoms or risk factors identified. Fall Risk None identified. Assessment: 15:50 General: Appears unkempt, Behavior is inappropriate for age, restless, uncooperative. em Pain: Unable to use pain scale. Does not appear to understand pain scale. Neuro: Level of Consciousness is awake, confused, Oriented to none. Cardiovascular: Capillary refill < 3 seconds Patient's skin is warm and dry. Rhythm is sinus tachycardia. Respiratory: Airway is patent Respiratory effort is even, unlabored, Respiratory pattern is regular, tachypnea. Derm: Skin is intact, is healthy with good turgor, Skin is pink, warm \\T\\ dry. Musculoskeletal: Capillary refill < 3 seconds, Range of motion: intact in all extremities. 16:40 Reassessment: pt states he also took Seroquel, unknown amount of pills, denies SI, pt em drowsy but answering questions, provider notified, received order for NS. 17:14 Reassessment: spoke with [place] at poison control ( ) recommended em to monitor for seizures, VS, mental status, and EKG prolong QT, medication admin. should consist of: NS, benzos and sodium bicarb. and repeat q 4 lithium levels. 18:25 Reassessment: order for straight cath. pt, pt combative, Dr. Lombardo at bedside, em received verbal order for new medication and received verbal order for restraints, did not tolerate catheter well. 18:30 Reassessment: pt confused, removed straight cath, flung urine on staff, collected UA em and UDS sent to lab. Vital Signs: 15:54 BP 136 / 76; Pulse 112; Resp 20; Pulse Ox 100% on R/A; em 16:43 Temp 100.1(O); em 17:09 BP 137 / 82; Pulse 135; Resp 24; Pulse Ox 100% on R/A; em 18:15 BP 152 / 70; Pulse 148; Resp 28; Pulse Ox 100% on R/A; em 18:25 BP 152 / 70; Pulse 148; Resp 28; Pulse Ox 100% on R/A; em ED Course: 15:46 Patient arrived in ED. ds1 15:47 Jo Ann Lombardo MD is Attending Physician. ma2 15:53 Rashi Moscoso, RN is Primary Nurse. em 15:54 Patient has correct armband on for positive identification. Bed in low position. Call em light in reach. alarm security or surveillance monitor on. Pulse ox on. NIBP on. 16:02 Triage completed. em 16:06 Arm band placed on. em 16:45 Initial lab(s) drawn, by nm, sent to lab. Inserted saline lock: 20 gauge in left em forearm, using aseptic technique. Blood collected. 18:37 Vijay Rivera MD is Hospitalizing Provider. ma2 22:28 No provider procedures requiring assistance completed. Patient admitted, IV remains in rv place. 05/16 07:54 Primary Nurse role handed off by Rashi Moscoso RN bd Restraints: 05/15 18:25 Violent/Self Destructive Restraint: Order: obtained. Initiated May 15, 2020 at 16:25 em Staff present during the Initiation of Restraint: Manda Gould, ALEXANDRA, Rashi RN and JEAN PIERRE Mujica. Observed actions/behavior: impaired decision making, Alternative interventions: Ineffective. Monitoring: Mental status: agitated/restless, confused. Cognition: poor judgement, Impulsive, Circulation: Within defined parameters (based on Cardiovascular assessment). Skin integrity: Within defined parameters (based on Integumentary assessment) No injuries due to Restraints noted. Restraint status: Side rails up x 4 Started. Soft wrist restraint (Right) Started. Soft wrist restraint (Left) Started. Soft ankle restraint (Right) Started. Soft ankle restraint (Left) Started. 18:40 Violent/Self Destructive Restraint: Observed actions/behavior: em confusion/disorientation, impaired decision making, Alternative interventions: Ineffective. Monitoring: Mental status: agitated/restless, confused. Cognition: poor judgement, Impulsive, Circulation: Within defined parameters (based on Cardiovascular assessment). Skin integrity: Within defined parameters (based on Integumentary assessment) No injuries due to Restraints noted. 18:55 Violent/Self Destructive Restraint: Observed actions/behavior: em confusion/disorientation, impaired decision making, Alternative interventions: Ineffective. Monitoring: Mental status: agitated/restless, confused. Cognition: poor judgement, Impulsive, Circulation: Within defined parameters (based on Cardiovascular assessment). Skin integrity: Within defined parameters (based on Integumentary assessment) No injuries due to Restraints noted. Administered Medications: 16:19 Drug: Benadryl 50 mg Route: IM; Site: right gluteus; em 16:40 Follow up: Response: No adverse reaction; Marked relief of symptoms em 16:20 Drug: HALdol (as decanoate) 10 mg Route: IM; Site: right deltoid; em 16:40 Follow up: Response: No adverse reaction; Marked relief of symptoms em 16:58 Drug: NS 0.9% 2000 ml Route: IV; Rate: 1 bolus; Site: left forearm; em 18:45 Follow up: IV Status: Completed infusion; IV Intake: 2000ml em 18:25 Drug: HALdol 5 mg Route: IVP; Site: left wrist; ss 18:39 Drug: Benadryl 50 mg Route: IVP; Site: left wrist; ss Intake: 18:45 IV: 2000ml; Total: 2000ml. em Outcome: 18:37 Decision to Hospitalize by Provider. ma2 22:28 Admitted to ER Hold. Please see [facility] for further documentation. rv 22:28 Condition: stable 22:28 Instructed on the need for admit. 05/16 19:30 Patient left the ED. eb1 Signatures: Radha Moore Edgar, RN RN [facility] Manda Saeed RN RN Jo Ann Lombardo MD MD ma2 Basinger, Emily, RN RN eb1 Serafin Lau RN RN rv Corrections: (The following items were deleted from the chart) 05/15 17:06 16:43 Temp 101.1F Oral; em em 05/16 09:40 05/15 18:25 Violent/Self Destructive Restraint: Order: obtained. Initiated May 152019 at 16:25 Staff present during the Initiation of Restraint: Manda Gould, RN, Rashi, RN and JEAN PIERRE Mujica. Observed actions/behavior: impaired decision making, Alternative interventions: Ineffective. Monitoring: Mental status: agitated/restless, confused. Cognition: poor judgement, Impulsive, Circulation: Within defined parameters (based on Cardiovascular assessment). Skin integrity: Within defined parameters (based on Integumentary assessment) No injuries due to Restraints noted. Restraint status: Side rails up x 4 Started. Soft wrist restraint (Right) Started. Soft wrist restraint (Left) Started. Soft ankle restraint (Right) Started. Soft ankle restraint (Left) Started. em
[2020-05-15 18:42] LABS: Barbiturates NEGATIVE (NEGATIVE); Benzodiazepines NEGATIVE (NEGATIVE); Cocaine NEGATIVE (NEGATIVE); METHAMPHETAM NEGATIVE (NEGATIVE); Methadone NEGATIVE (NEGATIVE); Opiates NEGATIVE (NEGATIVE); Phencyclidine NEGATIVE (NEGATIVE); THC Cannibis NEGATIVE (NEGATIVE)
[2020-05-15] MEDS: D5 0.45 NS 1,000 ML IV SCH (19:00)
[2020-05-15] MEDS ORDERED: NA CHLORIDE 0.9% 1,000 ML IV SCH (19:00)
[2020-05-15 19:08] LABS: Urine Blood 2+ (NEG); Urine Glucose NEGATIVE (NEG); Urine Protein TRACE (NEG); Urine Specific Gravity 1.015 (1.005-1.030)
--- NOTE | 2020-05-15 19:55 | P.HP ---
Certification for Inpatient Patient admitted to: Observation With expected LOS: <2 Midnights Practitioner: I am a practitioner with admitting privileges, knowledge of patient current condition, hospital course, and medical plan of care. Services: Services provided to patient in accordance with Admission requirements found in Title 42 Section 412.3 of the Code of Federal Regulations Patient History Date of Service: 05/16/20 Reason for admission: Tachcardia,possible OD History of Present Illness: Pt hx of Schizophrenia. Bottleof lithium found at bedside. AMS. Pt tachycarduc. Normal lithium level/ Renal failure and hypernatremia patient is confused Allergies No Known Allergies Allergy (Verified 04/04/19 14:42) Home Medications: Omeprazole [Prilosec] 1 tab PO DAILY 04/04/19 sulfaSALAzine [Azulfidine] 500 mg PO BID 04/04/19 Folic Acid 1 mg PO DAILY 05/15/20 [place] Carbonate [[place] Carbonate ER] 300 mg PO DAILY 05/15/20 [place] Carbonate [[place] Carbonate ER] 450 mg PO BEDTIME 05/15/20 Loratadine [Allergy Relief] 10 mg PO DAILYPRN PRN 05/15/20 Quetiapine Fumarate [Seroquel] 50 mg PO 1900 05/15/20 Quetiapine Fumarate [Seroquel] 300 mg PO BEDTIME 05/15/20 ramipriL [Ramipril] 5 mg PO DAILY 05/15/20 Physical Examination - Vital Signs Temperature: 100.1 F Blood Pressure: 137/76 Pulse: 112 Respirations: 20 Pulse Ox (%): 100 - Physical Exam General: Unresponsive Neck: Supple Respiratory: Clear to auscultation bilaterally Cardiovascular: No edema, Regular rate/rhythm Gastrointestinal: Normal bowel sounds, Soft and benign Musculoskeletal: No clubbing, No swelling Integumentary: No rashes, No breakdown - Studies Laboratory Data (last 24 hrs) 05/15/20 16:45: PT 14.0 H, INR 1.19, APTT 31.7 05/15/20 16:45: WBC 19.7 H, Hgb 14.6, Hct 43.9, Plt Count 194 05/15/20 16:45: Sodium 147 H, Potassium 3.2 L, BUN 22 H, Creatinine 1.94 H, Glucose 132 H, Total Bilirubin 0.7, AST 46 H, ALT 34, Alkaline Phosphatase 79 Assessment and Plan - Problems (Diagnosis) (1) Renal failure Current Visit: Yes Status: Acute Plan: Poss dehydration.[place] level is normal. Hydrate pat. RO sepsis. CXRy and UA neg. Tachycardic with elevated WBC. Start on Rocephin continue with IV fluids cultures pending lithium levels are normal patient is at risk for sleep apnea Qualifiers: Renal failure chronicity: unspecified chronicity Qualified Code(s): N19 - Unspecified kidney failure - Advance Directives Does patient have a Living Will: No Does patient have a Durable POA for Healthcare: No
[2020-05-15] MEDS: CEFTRIAXONE/SWI 1gm 1 GM/10 ML SYR IV SCH (20:00)
[2020-05-15] MEDS: LORazepam 2 MG/ML VIAL IV PRN ×2 (20:00→23:55)
[2020-05-15] MEDS ORDERED: CEFTRIAXONE/SWI 1gm 1 GM/10 ML SYR ONE (20:10)
[2020-05-15] MEDS ORDERED: WATER FOR INJ,STERILE 10 ML IM PRN (20:23)
[2020-05-15] MEDS ORDERED: ZIPRASIDONE MESYLA 20 MG/VIAL IM PRN (20:23)
[2020-05-15] MEDS ORDERED: D5 0.45 NS 1,000 ML IV ONE (20:25)
--- NOTE | 2020-05-15 20:34 | RAD REPORT ---
EXAM DESCRIPTION: [place] Single View05/15/2020 7:49 pm CLINICAL HISTORY: Congestion COMPARISON: none FINDINGS: The lungs appear clear of acute infiltrate. The heart is normal size IMPRESSION: No acute abnormalities displayed
[2020-05-16] MEDS ORDERED: LORazepam 2 MG/ML VIAL ONE ×2 (03:25)
[2020-05-16] MEDS ORDERED: D5 0.45 NS 1,000 ML IV ONE ×2 (03:26→15:28)
[2020-05-16] MEDS: LORazepam 2 MG/ML VIAL IV PRN (03:35)
[2020-05-16 04:56] LABS: Absolute Lymphocytes (CBC) 1.1 K/uL (0.7-4.9); Basophils % 0.2 % (0-1.3); Hematocrit 38.5 % (39.6-49.0); Lymphocytes % 8.3 % (15.3-44.8); MPV 8.5 fL (7.6-11.3); RBC Red Blood Cell Count 4.23 M/uL (4.33-5.43)
[2020-05-16 05:01] LABS: Albumin 3.7 g/dL (3.4-5.0); Bilirubin Total 0.9 mg/dL (0.2-1.0); Protein, Total 6.6 g/dL (6.4-8.2)
[2020-05-16 05:10] LABS: Potassium 2.8 mmol/L (3.5-5.1)
[2020-05-16] MEDS: D5 0.45 NS 1,000 ML IV SCH (05:29)
[2020-05-16 06:51] LABS: Lithium 0.4 mmol/L (0.6-1.2); Salicylates Level < 1.7 mg/dL (2.8-20)
[2020-05-16] MEDS: KCL 20 MEQ/100 mL IVPB 20 MEQ/100 ML BAG IV SCH ×3 (08:00→10:00)
[2020-05-16] MEDS: CEFTRIAXONE/SWI 1gm 1 GM/10 ML SYR IV SCH (08:48)
[2020-05-16] MEDS ORDERED: HEPARIN 5000 UNIT/ML 1 ML VIAL ONE (08:57)
[2020-05-16] MEDS ORDERED: CEFTRIAXONE/SWI 1gm 1 GM/10 ML SYR ONE (08:58)
[2020-05-16] MEDS ORDERED: KCL 20 MEQ/100 mL IVPB 20 MEQ/100 ML BAG IV ONE ×2 (08:58→13:39)
[2020-05-16] MEDS ORDERED: HEPARIN 5000 UNIT/ML 1 ML VIAL SQ SCH (09:00)
[2020-05-16] MEDS ORDERED: PANTOPRAZOLE 40MG TABLET PO SCH (09:00)
[2020-05-16] MEDS ORDERED: FOLIC ACID 1 MG TABLET PO SCH (09:00)
[2020-05-16] MEDS ORDERED: LITHIUM CARBONATE 300 MG PO SCH (09:00)
[2020-05-16] MEDS ORDERED: HOME MED 1 EA UNK (Omeprazole [Prilosec] 1 TAB) PO SCH (09:00)
[2020-05-16 10:12] LABS: Thyroid Stimulating Hormone 1.38 uIU/mL (0.360-3.740)
[2020-05-16 11:09] VITALS: TEMP 98.1
[2020-05-16 13:26] VITALS: O2SAT 97
[2020-05-16] MEDS ORDERED: D5 0.45 NS 1,000 ML IV SCH (14:20)
--- NOTE | 2020-05-16 14:24 | P.CNS ---
Date of Consult: 05/16/20 Reason for Consult: Hypokalemia Requesting Physician: Reggie Olea Chief Complaint: Tachcardia,possible OD History of Present Illness: 39 yo WM presented to the ER with 24 hours of severe, progressive AMS in the setting of multiple medications. Found to have GENARO and hypokalemia in the setting of dehydration. 17:20 This 39 yrs old Male presents to ER via EMS with complaints of Psych Problem. ma2 17:20 The patient presents to the emergency department with schezophrenia . Onset: The ma2 symptoms/episode began/occurred suddenly, 1 day(s) ago. Associated signs and symptoms: Pertinent negatives: chest pain, fever, hallucinations, homicidal ideation, paranoia, substance abuse, suicide ideation. Severity of symptoms: At their worst the symptoms were moderate in the emergency department the symptoms are unchanged. The patient has experienced similar episodes in the past. Allergies No Known Allergies Allergy (Verified 04/04/19 14:42) Home medications list reviewed: Yes Home Medications: Omeprazole [Prilosec] 1 tab PO DAILY 04/04/19 sulfaSALAzine [Azulfidine] 500 mg PO BID 04/04/19 Folic Acid 1 mg PO DAILY 05/15/20 [place] Carbonate [[place] Carbonate ER] 300 mg PO DAILY 05/15/20 [place] Carbonate [[place] Carbonate ER] 450 mg PO BEDTIME 05/15/20 Loratadine [Allergy Relief] 10 mg PO DAILYPRN PRN 05/15/20 Quetiapine Fumarate [Seroquel] 50 mg PO 1900 05/15/20 Quetiapine Fumarate [Seroquel] 300 mg PO BEDTIME 05/15/20 ramipriL [Ramipril] 5 mg PO DAILY 05/15/20 - Past Medical/Surgical History Diabetic: No -: Schizoaffective disorder -: bipolar -: HTN - Social History Smoking Status: Current some day smoker Review of Systems 10-point ROS is otherwise unremarkable General: Weakness, Malaise Neurological: Weakness Physical Examination Temp Pulse Resp BP Pulse Ox 98.1 F 104 H 18 126/78 99 05/16/20 12:00 05/16/20 13:00 05/16/20 13:00 05/16/20 13:00 05/16/20 13:00 General: In no apparent distress, Cooperative HEENT: Atraumatic Neck: Supple Respiratory: Clear to auscultation bilaterally Cardiovascular: No edema Gastrointestinal: Soft and benign Musculoskeletal: No clubbing, No contractures Integumentary: No rashes, No cyanosis Neurological: Normal speech Laboratory Data (last 24 hrs) 05/16/20 04:18: Sodium 147 H, Potassium 2.8 L*, BUN 16, Creatinine 0.96, Glucose 124 H, Total Bilirubin 0.9, AST 70 H, ALT 39, Alkaline Phosphatase 66 05/16/20 04:18: WBC 13.5 H D, Hgb 12.9 L, Hct 38.5 L, Plt Count 182 05/15/20 16:45: PT 14.0 H, INR 1.19, APTT 31.7 05/15/20 16:45: WBC 19.7 H, Hgb 14.6, Hct 43.9, Plt Count 194 05/15/20 16:45: Sodium 147 H, Potassium 3.2 L, BUN 22 H, Creatinine 1.94 H, Glucose 132 H, Total Bilirubin 0.7, AST 46 H, ALT 34, Alkaline Phosphatase 79 Imagings Data: EXAM DESCRIPTION: ROSANNAChest Single View05/15/2020 7:49 pm CLINICAL HISTORY: Congestion COMPARISON: none FINDINGS: The lungs appear clear of acute infiltrate. The heart is normal size IMPRESSION: No acute abnormalities displayed Conclusions/Impression: A/ GENARO in the setting of hypovolemia/ dehydration Hypernatremia Hypokalemia Hypocalcemia HTN Anemia in chronic illness P/ Continue current POC and Medications. Increase IVF. Replete potassium as ordered. Repeat BMP at 1800. No NSAIDs. AM labs prn. Daily weight. Thank you kindly for the consultation. Case reviewed with Dr. Olea.
[2020-05-16] MEDS ORDERED: POTASSIUM CL SA 10 MEQ TAB PO ONE ×4 (14:43→19:00)
[2020-05-16] MEDS ORDERED: ACETAMINOPHEN 325 MG TABLET PO ONE (15:57)
[2020-05-16] MEDS ORDERED: ACETAMINOPHEN 325 MG TABLET ONE (16:04)
--- NOTE | 2020-05-16 17:18 | P.PN ---
Subjective Date of Service: 05/16/20 Chief Complaint: Tachcardia,possible OD Subjective: Improving, Doing well Physical Examination - Vital Signs Temperature: 98.1 F Blood Pressure: 138/88 Pulse: 104 Respirations: 20 Pulse Ox (%): 99 - Physical Exam General: Alert, In no apparent distress, Cooperative HEENT: Atraumatic Neck: Supple Respiratory: Clear to auscultation bilaterally Cardiovascular: Normal pulses, Regular rate/rhythm Gastrointestinal: Normal bowel sounds, Soft and benign, Non-distended Neurological: Normal speech, Normal strength at 5/5 x4 extr, Normal tone, Normal affect - Studies Laboratory Data (last 24 hrs) 05/16/20 04:18: Sodium 147 H, Potassium 2.8 L*, BUN 16, Creatinine 0.96, Glucose 124 H, Total Bilirubin 0.9, AST 70 H, ALT 39, Alkaline Phosphatase 66 05/16/20 04:18: WBC 13.5 H D, Hgb 12.9 L, Hct 38.5 L, Plt Count 182 05/15/20 16:45: Sodium 147 H, Potassium 3.2 L, BUN 22 H, Creatinine 1.94 H, Glucose 132 H, Total Bilirubin 0.7, AST 46 H, ALT 34, Alkaline Phosphatase 79 Medications List Reviewed: Yes Assessment & Plan Discharge Plan: Home Plan to discharge in: 24 Hours Physician Review Additional Text: Impression: Metabolic encephalopathy related to Acute renal injury with hypernatremia, hypokalemia likely dehydration Schizophrenia Plan: Patient has done well with IV fluids. Patient appears to be back to his baseline. Schizophrenia medications restarted. Patient was assessed [facility] were he [facility]. No evidence of suicidal ideation. No need for inpatient psychiatric care. Case discussed at length with nephrology. Potassium to be replaced. Recheck potassium today. If within normal range then will discharge patient. Will discuss with nurse practitioner to help in this process. Time Spent Managing Pts Care (In Minutes): 55
[2020-05-16 17:37] LABS: BUN Blood Urea Nitrogen 13 mg/dL (7-18); Bicarbonate 22 mmol/L (21-32); Glucose Level 98 mg/dL (74-106); Potassium 3.2 mmol/L (3.5-5.1); Sodium Level 145 mmol/L (136-145)
[2020-05-16 18:21] VITALS: BP 106/71
--- NOTE | 2020-05-16 18:24 | P.DS ---
Admission Date: 05/16/20 Discharge Date: 05/16/20 Disposition: ROUTINE DISCHARGE Discharge Condition: GOOD Reason for Admission: Tachcardia,possible OD Consultations: Nephrology- [place] Procedures: Chest Xray- FINDINGS: The lungs appear clear of acute infiltrate. The heart is normal size IMPRESSION: No acute abnormalities displayed Brief History of Present Illness: Patient was admitted to the Hospital for AMS with bottle of lithium found next to him. Patient was also tachycardic and had hypernatremia and hyperkalemia. Patient was admitted for further evaluation. Hospital Course: patient was admitted for further evaluation and hydrated. Patient also had consult with nephrology and had his potassium replaced. Patient responded well to treatment and lithium levels were within normal limits. Patient was also evaluated by [facility] who determined patient does not need inpatient treatment at this time. Renal function improved greatly, sodium and potassium improved. Case also discussed with nephrology who agree patient is stable for outpatient follow up. At discharge patient will continue his home medications and follow up with nephrology and mental health on an outpatient basis. Vital Signs/Physical Exam: Temp Pulse Resp BP Pulse Ox 98.1 F 75 18 106/71 98 05/16/20 17:35 05/16/20 18:00 05/16/20 18:00 05/16/20 18:00 05/16/20 18:00 General: Alert, In no apparent distress, Oriented x3 HEENT: Atraumatic, Normocephalic, PERRLA, Mucous membr. moist/pink Neck: Supple Respiratory: Clear to auscultation bilaterally, Normal air movement Cardiovascular: No edema, Normal S1 S2 Capillary refill: <2 Seconds Gastrointestinal: Normal bowel sounds, Soft and benign, No ascites, No tender ness, No masses Musculoskeletal: No erythema, No tenderness, No warmth Integumentary: No tenderness/swelling, No erythema Neurological: Normal gait, Normal speech, Normal tone Laboratory Data at Discharge: WBC 13.5 K/uL (4.3-10.9) H D 05/16/20 04:18 Hgb 12.9 g/dL (13.6-17.9) L 05/16/20 04:18 Hct 38.5 % (39.6-49.0) L 05/16/20 04:18 Plt Count 182 K/uL (152-406) 05/16/20 04:18 PT 14.0 SECONDS (9.5-12.5) H 05/15/20 16:45 INR 1.19 05/15/20 16:45 APTT 31.7 SECONDS (24.3-36.9) 05/15/20 16:45 Sodium 145 mmol/L (136-145) 05/16/20 17:12 Potassium 3.2 mmol/L (3.5-5.1) L 05/16/20 17:12 BUN 13 mg/dL (7-18) 05/16/20 17:12 Creatinine 0.79 mg/dL (0.55-1.3) 05/16/20 17:12 Glucose 98 mg/dL (74-106) 05/16/20 17:12 Total Bilirubin 0.9 mg/dL (0.2-1.0) 05/16/20 04:18 AST 70 U/L (15-37) H 05/16/20 04:18 ALT 39 U/L (12-78) 05/16/20 04:18 Alkaline Phosphatase 66 U/L (45-117) 05/16/20 04:18 Home Medications: Omeprazole [Prilosec] 1 tab PO DAILY 04/04/19 sulfaSALAzine [Azulfidine] 500 mg PO BID 04/04/19 Folic Acid 1 mg PO DAILY 05/15/20 [place] Carbonate [[place] Carbonate ER] 300 mg PO DAILY 05/15/20 [place] Carbonate [[place] Carbonate ER] 450 mg PO BEDTIME 05/15/20 Loratadine [Allergy Relief] 10 mg PO DAILYPRN PRN 05/15/20 Quetiapine Fumarate [Seroquel] 50 mg PO 1900 05/15/20 Quetiapine Fumarate [Seroquel] 300 mg PO BEDTIME 05/15/20 ramipriL [Ramipril] 5 mg PO DAILY 05/15/20 Patient Discharge Instructions: 1. Follow up or establish yourself with a PCP in the next 1-2 weeks. 2. Please follow up with [facility] on an outpatient basis for further management. 3. Please follow up with neprhology in 2 weeks for monitoring of kidney function and electrolytes. 4. patient was admitted for further evaluation and hydrated. Patient also had consult with nephrology and had his potassium replaced. Patient responded well to treatment and lithium levels were within normal limits. Patient was also evaluated by [facility] who determined patient does not need inpatient treatment at this time. Renal function improved greatly, sodium and potassium improved. Case also discussed with nephrology who agree patient is stable for outpatient follow up. At discharge patient will continue his home medications and follow up with nephrology and mental health on an outpatient basis. Diet: Renal Time spent managing pt's care (in minutes): 55
[2020-05-16 18:45] VITALS: BMI 34.4
[2020-05-16] MEDS ORDERED: QUETIAPINE 25 MG TAB PO SCH (19:00)
[2020-05-16] MEDS ORDERED: QUETIAPINE 100MG TAB PO SCH (21:00)
[2020-05-16] MEDS ORDERED: LITHIUM CARBONATE 450 MG PO SCH (21:00)
[2020-05-17] MEDS ORDERED: CALCITROL 0.25 MCG CAP PO SCH (09:00)
[2020-05-17] MEDS ORDERED: VITAMIN D 5,000 UNIT CAP PO SCH (09:00)
== END 2020-05-16 20:30 | disposition home or self-care (01) | DRG 682 ==
LOC: ER 15:40 → ERHOLD 18:02 → OBSVTOIN 05-16 07:50
PROVIDERS: ADMIT Internal Medicine Sleep Medicine; ATTEND Family Medicine
DX: N17.9 Acute kidney failure, unspecified (principal); G93.41 Metabolic encephalopathy; E87.0 Hyperosmolality and hypernatremia; I10 Essential (primary) hypertension; E87.6 Hypokalemia; F20.9 Schizophrenia, unspecified; E86.1 Hypovolemia; E86.0 Dehydration; E83.51 Hypocalcemia; D63.8 Anemia in other chronic diseases classified elsewhere; F17.200 Nicotine dependence, unspecified, uncomplicated; Z79.899 Other long term (current) drug therapy; Z20.828 Contact with and (suspected) exposure to other viral communicable diseases
CPT/HCPCS: 36415; 71045; 80048; 80053; 80076; 80178; 80307; 80320; 80329; 81003; 82947; 84145; 84439; 84443; 85025; 85610; 85730; 87040; 93005; 94760; 96361; 96372; 96374; 96375; 99285; G0378; J0696; J1200; J1630; J1644; J3480; J7030; J7799; U0003

== ENCOUNTER 2021-01-23 03:52 | Emergency (ER) | payer SELFPAY ==
--- OUTSIDE RECORDS SUMMARY | 2021-01-23 03:54 | XMS REPORT | Continuity of Care Document ---
:1980 Author Organization [facility] t Address [address] [place] [address] [place] [id number] Care Team Providers Name Role Phone Unavailable Unavailable Unavailable Problems This patient has no known problems. Allergies, Adverse Reactions, Alerts This patient has no known allergies or adverse reactions. Medications This patient has no known medications. Procedures This patient has no known procedures. Results This patient has no known results.
[2021-01-23 05:31] LABS: Basophils % 0.5 % (0-1.3); Hematocrit 44.1 % (39.6-49.0); Lymphocytes % 13.8 % (15.3-44.8); MPV 8.7 fL (7.6-11.3); RBC Red Blood Cell Count 4.96 M/uL (4.33-5.43)
[2021-01-23 05:36] LABS: Protime INR 1.15
[2021-01-23 06:11] LABS: Urine Blood Negative (Negative); Urine Glucose Negative (Negative); Urine Protein 2+ (Negative); Urine Specific Gravity >=1.030 (1.005-1.030); Urine pH 5.5 (5.0-7.0)
[2021-01-23 06:15] LABS: ALT/SGPT 53 U/L (12-78); AST/SGOT 22 U/L (15-37); Albumin 4.8 g/dL (3.4-5.0); Alkaline Phosphatase 87 U/L (45-117); BUN Blood Urea Nitrogen 43 mg/dL (7-18); Bicarbonate 21 mmol/L (21-32); Bilirubin Direct 0.1 mg/dL (0-0.2); Bilirubin Total 0.8 mg/dL (0.2-1.0); Glucose Level 118 mg/dL (74-106); Potassium 3.1 mmol/L (3.5-5.1); Protein, Total 7.9 g/dL (6.4-8.2); Sodium Level 147 mmol/L (136-145)
[2021-01-23 06:37] LABS: Barbiturates NEGATIVE (NEGATIVE); Benzodiazepines NEGATIVE (NEGATIVE); Cocaine NEGATIVE (NEGATIVE); METHAMPHETAM NEGATIVE (NEGATIVE); Methadone NEGATIVE (NEGATIVE); Opiates NEGATIVE (NEGATIVE); Phencyclidine NEGATIVE (NEGATIVE); THC Cannibis NEGATIVE (NEGATIVE)
[2021-01-23] MEDS ORDERED: NA CHLORIDE 0.9% 1,000 ML ONE (07:28)
[2021-01-23] MEDS ORDERED: KCL 20 MEQ/100 mL IVPB 20 MEQ/100 ML BAG IV ONE (07:32)
[2021-01-23] MEDS ORDERED: POTASSIUM 25 MEQ EFFERV TAB ONE (07:32)
--- NOTE | 2021-01-23 12:26 | EDPHYS ---
Physician Documentation [facility] Name: Ravi Jaime Age: 40 yrs Sex: Male : 1980 Arrival Date: 01/23/2021 Time: 04:02 Bed 6 Private MD: ED Physician Denis Stallworth HPI: 01/23 06:17 This 40 yrs old Male presents to ER via EMS with complaints of Suicidal tw4 Ideation. 06:17 The patient presents to the emergency department with depression. Onset: The tw4 symptoms/episode began/occurred just prior to arrival, today. The patient has not experienced similar symptoms in the past. Historical: - Allergies: 04:06 No Known Allergies; bb - Home Meds: 04:06 folic acid 1 mg Oral tab 1 tab once daily [Active]; lamotrigine 200 mg Oral tab once bb daily [Active]; lisinopril 10 mg Oral tab 1 tab once daily for Hypertension [Active]; lithium carbonate 300 mg Oral cap 1 cap AT NIGHT [Active]; lithium carbonate 450 mg Oral TbER 1 tab daily [Active]; omeprazole 40 mg Oral cpDR 1 cap once daily [Active]; quetiapine 50 mg Oral tab 1 tab [Active]; quetiapine 300 mg Oral tab 1 tab once daily [Active]; ramipril 5 mg Oral cap 1 cap once daily [Active]; Seroquel 100 mg Oral tab 1.5 tab AT NIGHT [Active]; sulfasalazine 500 mg Oral tab 1 tab BID [Active]; - PMHx: 04:06 Bipolar disorder; Hypertension; schizoaffective disorder; bb - Immunization history:: Adult Immunizations unknown. - Social history:: Smoking status: unknown. ROS: 06:17 Constitutional: Negative for fever, chills, and weight loss, Eyes: Negative for injury, tw4 pain, redness, and discharge, Cardiovascular: Negative for chest pain, palpitations, and edema, Respiratory: Negative for shortness of breath, cough, wheezing, and pleuritic chest pain, Abdomen/GI: Negative for abdominal pain, nausea, vomiting, diarrhea, and constipation, Back: Negative for injury and pain, MS/Extremity: Negative for injury and deformity, Skin: Negative for injury, rash, and discoloration. 06:17 Neuro: Positive for 06:17 Psych: Positive for auditory hallucinations, visual hallucinations, suicidal ideation. Exam: 06:47 Constitutional: This is a well developed, well nourished patient who is awake, alert, tw4 and in no acute distress. Head/Face: Normocephalic, atraumatic. Chest/axilla: Normal chest wall appearance and motion. Nontender with no deformity. No lesions are appreciated. Cardiovascular: Regular rate and rhythm with a normal S1 and S2. No gallops, murmurs, or rubs. Normal PMI, no JVD. No pulse deficits. Respiratory: Lungs have equal breath sounds bilaterally, clear to auscultation and percussion. No rales, rhonchi or wheezes noted. No increased work of breathing, no retractions or nasal flaring. Abdomen/GI: Soft, non-tender, with normal bowel sounds. No distension or tympany. No guarding or rebound. No evidence of tenderness throughout. Back: No spinal tenderness. No costovertebral tenderness. Full range of motion. MS/ Extremity: Pulses equal, no cyanosis. Neurovascular intact. Full, normal range of motion. Neuro: Awake and alert, GCS 15, oriented to person, place, time, and situation. Cranial nerves II-XII grossly intact. Motor strength 5/5 in all extremities. Sensory grossly intact. Cerebellar exam normal. Normal gait. Psych: Awake, alert, with orientation to person, place and time. Behavior, mood, and affect are within normal limits. Vital Signs: 04:02 BP 130 / 96; Pulse 133; Resp 18 S; Temp 98.4(O); Pulse Ox 96% on R/A; Weight 90.72 kg bb (R); Height 5 ft. 7 in. (170.18 cm) (R); Pain 0/10; 07:00 Pulse 105; Resp 18; Pulse Ox 98% ; bp 07:39 BP 128 / 103; Pulse 102; Resp 18; Pulse Ox 98% on R/A; Pain 0/10; ll1 09:14 BP 125 / 88; Pulse 100; Resp 18; Temp 97.9(TE); Pulse Ox 97% on R/A; mh5 10:03 BP 133 / 97; Pulse 97; Resp 20; Temp 97.6(TE); Pulse Ox 97% on R/A; mh5 11:20 BP 155 / 103; Pulse 86; Resp 16; Temp 97.5(TE); Pulse Ox 97% ; mh5 13:13 BP 139 / 96; Pulse 84; Resp 16; Temp 98.0; Pulse Ox 99% on R/A; Pain 0/10; ll1 04:02 Body Mass Index 31.32 (90.72 kg, 170.18 cm) bb MDM: 09:15 Patient medically screened. rn 12:22 Differential diagnosis: psychosis secondary to non-compliance, dehydration, delirium, rn bipolar disorder. Data reviewed: vital signs, nurses notes, lab test result(s), and as a result, I will discharge patient. Counseling: I had a detailed discussion with the patient and/or guardian regarding: the historical points, exam findings, and any diagnostic results supporting the discharge/admit diagnosis, lab results, the need for outpatient follow up, to return to the emergency department if symptoms worsen or persist or if there are any questions or concerns that arise at home. Response to treatment: the patient's symptoms have markedly improved after treatment, and as a result, I will discharge patient. Special discussion: I discussed with the patient/guardian in detail that at this point there is no indication for admission to the hospital. It is understood, however, that if the symptoms persist or worsen the patient needs to return immediately for re-evaluation. ED course: Pt now awake and more alert, + dehydration, but otherwise no acute findings in workup, Stable vitals. Signed out to me by Dr. Lemon pending observation, states denied suicidal or homicidal ideation for him and nursing overnight. Awake and talking, again denies suicidal ideation or homicidal ideation. States compliant with his medication, is very polite and resting. Will dc home in care of family/friend. . 01/23 04:04 Order name: Acetaminophen 01/23 04:04 Order name: Basic Metabolic Panel 01/23 04:04 Order name: CBC with Diff 01/23 04:04 Order name: ETOH Level 01/23 04:04 Order name: Hepatic Function 01/23 04:04 Order name: PT-INR 01/23 04:04 Order name: Ptt, Activated; Complete Time: 06:55 01/23 06:56 Interpretation: Within normal limits: PTT 29.7. 01/23 04:04 Order name: Salicylate; Complete Time: 06:55 tw4 01/23 06:56 Interpretation: Within normal limits: KEISHA < 1.7. 01/23 04:04 Order name: Urine Drug Screen; Complete Time: 06:55 tw4 01/23 06:56 Interpretation: Within normal limits. 01/23 04:05 Order name: Acetaminophen Level; Complete Time: 06:55 EDMS 01/23 06:56 Interpretation: Within normal limits: ACETA < 2.0. 01/23 04:05 Order name: Basic Metabolic Panel; Complete Time: 06:55 EDMS 01/23 06:55 Interpretation: Normal except: CRE 1.65; GLUC 118; BUN 43; CL 115; K 3.1; NA 147; GFR tw4 46. 05 04:05 Order name: CBC with Automated Diff; Complete Time: 06:55 EDMS 01/23 04:05 Order name: Alcohol Serum/Plasma; Complete Time: 06:55 EDMS 01/23 04:05 Order name: Liver (Hepatic) Function; Complete Time: 06:55 EDMS 01/23 04:04 Order name: EKG; Complete Time: 04:05 4 01/23 04:04 Order name: EKG - Nurse/Tech; Complete Time: 05:05 4 01/23 04:04 Order name: IV Saline Lock; Complete Time: 05:16 tw4 01/23 04:04 Order name: Labs collected and sent; Complete Time: 05:05 4 01/23 04:04 Order name: Suicide Screening ([place]); Complete Time: 05:05 4 01/23 04:04 Order name: Urine Dipstick-Ancillary (obtain specimen); Complete Time: 06:11 4 01/23 04:05 Order name: Protime (+INR); Complete Time: 06:55 EDMS 01/23 06:56 Interpretation: Normal except: PT 13.2. 01/23 06:10 Order name: Urine Dipstick-Ancillary EDMS 01/23 06:57 Order name: Potassium; Complete Time: 10:45 tw4 01/23 07:38 Order name: Diet Regular; Complete Time: 07:38 mh5 EC:47 Rate is 138 beats/min. Rhythm is regular. QRS Elim is Normal. IN interval is normal. tw4 QRS interval is normal. QT interval is normal. No Q waves. T waves are Normal. No ST changes noted. Clinical impression: Sinus tachycardia. Interpreted by me. Reviewed by me. Administered Medications: 07:10 Not Given (Other Intervention Used): NS 0.9% 1000 ml IV at 1 bolus Per protocol; 1000 bp mL bolus 07:38 Drug: Potassium Chloride 20 mEq Route: IV; Rate: calculated rate; Site: right forearm; ll1 10:20 Follow up: Response: No adverse reaction; IV Status: Completed infusion; IV Intake: ll1 100ml 07:38 Drug: Potassium Effervescent Tablet 50 mEq Route: PO; ll1 09:28 Follow up: Response: No adverse reaction bp 10:20 Follow up: Response: No adverse reaction; RASS: Alert and Calm (0) ll1 07:39 Drug: NS 0.9% 1000 ml Route: IV; Rate: 1 bolus; Site: right forearm; ll1 10:20 Follow up: Response: No adverse reaction; IV Status: Completed infusion; IV Intake: ll1 1000ml Disposition: 01/23/21 12:25 Discharged to Home. Impression: Altered mental status, unspecified, Dehydration, Bipolar disorder, Schizoaffective disorder, unspecified. - Condition is Stable. - Discharge Instructions: Dehydration, Adult, Bipolar Disorder, Schizoaffective Disorder. - Medication Reconciliation Form, Thank You Letter, Antibiotic Education, Prescription Opioid Use form. - Follow up: Private Physician; When: As needed; Reason: Recheck today's complaints, Re-evaluation by your physician. - Problem is new. - Symptoms have improved. Signatures: Dispatcher [employer] EDCheryl Pino RN RN Denis Nicolas MD MD rn Peltier, Brian, RN RN bp Wadley, Terrence, MD MD tw4 Simona Mejia RN RN ll1 Corrections: (The following items were deleted from the chart) 13:15 12:25 01/23/2021 12:25 Discharged to Home. Impression: Altered mental status, ll1 unspecified; Dehydration; Bipolar disorder; Schizoaffective disorder, unspecified. Condition is Stable. Forms are Medication Reconciliation Form, Thank You Letter, Antibiotic Education, Prescription Opioid Use. Follow up: Private Physician; When: As needed; Reason: Recheck today's complaints, Re-evaluation by your physician. Problem is new. Symptoms have improved. rn
--- NOTE | 2021-01-23 12:26 | ER ---
Nurse's Notes [facility] Name: Ravi Jaime Age: 40 yrs Sex: Male : 1980 Arrival Date: 01/23/2021 Time: 04:02 Bed 6 Private MD: Diagnosis: Altered mental status, unspecified;Dehydration;Bipolar disorder;Schizoaffective disorder, unspecified Presentation: 01/23 04:02 Chief complaint: EMS states: they were toned out for pt with psychotic episode pt was bb walking his dog naked police were called pt acting erratic so [facility] notified. Coronavirus screen: At this time, the client does not indicate any symptoms associated with coronavirus-19. Ebola Screen: No symptoms or risks identified at this time. Initial Sepsis Screen: Does the patient meet any 2 criteria? No. Patient's initial sepsis screen is negative. Does the patient have a suspected source of infection? No. Patient's initial sepsis screen is negative. Risk Assessment: Do you want to hurt yourself or someone else? Unable to obtain. Onset of symptoms is unknown. 04:02 Method Of Arrival: EMS: [facility] bb 04:02 Acuity: GERALDINE 2 bb 04:07 Note pt accompanied by mental health deputy with emergency half-way order. bb Historical: - Allergies: 04:06 No Known Allergies; bb - Home Meds: 04:06 folic acid 1 mg Oral tab 1 tab once daily [Active]; lamotrigine 200 mg Oral tab once bb daily [Active]; lisinopril 10 mg Oral tab 1 tab once daily for Hypertension [Active]; lithium carbonate 300 mg Oral cap 1 cap AT NIGHT [Active]; lithium carbonate 450 mg Oral TbER 1 tab daily [Active]; omeprazole 40 mg Oral cpDR 1 cap once daily [Active]; quetiapine 50 mg Oral tab 1 tab [Active]; quetiapine 300 mg Oral tab 1 tab once daily [Active]; ramipril 5 mg Oral cap 1 cap once daily [Active]; Seroquel 100 mg Oral tab 1.5 tab AT NIGHT [Active]; sulfasalazine 500 mg Oral tab 1 tab BID [Active]; - PMHx: 04:06 Bipolar disorder; Hypertension; schizoaffective disorder; bb - Immunization history:: Adult Immunizations unknown. - Social history:: Smoking status: unknown. Screenin:17 Abuse screen: Denies threats or abuse. Denies injuries from another. Nutritional wh screening: No deficits noted. Tuberculosis screening: No symptoms or risk factors identified. Fall Risk None identified. Assessment: 05:17 General: Appears in no apparent distress. Behavior is cooperative. Pain: Denies pain. wh Neuro: Level of Consciousness is awake, alert, obeys commands, Oriented to person, place, time. Cardiovascular: Capillary refill < 3 seconds. Respiratory: Airway is patent Respiratory effort is even, unlabored, Respiratory pattern is regular, symmetrical. GI: Abdomen is flat, non-distended. : No signs and/or symptoms were reported regarding the genitourinary system. EENT: No signs and/or symptoms were reported regarding the EENT system. Derm: Skin is intact, is healthy with good turgor, Skin is pink, warm \\T\\ dry. Musculoskeletal: Circulation, motion, and sensation intact. 07:00 Reassessment: RECD REPORT FROM DEMIAN MORRIS. 40YO WM P/W PSYCH D/O. ALL CURRENT ORDERS bp COMPLETED. 08:00 Reassessment: No changes from previously documented assessment. Patient and/or family ll1 updated on plan of care and expected duration. Pain level reassessed. 09:00 Reassessment: No changes from previously documented assessment. Patient and/or family ll1 updated on plan of care and expected duration. Pain level reassessed. 10:00 Reassessment: No changes from previously documented assessment. Patient and/or family ll1 updated on plan of care and expected duration. Pain level reassessed. 11:00 Reassessment: No changes from previously documented assessment. Patient and/or family ll1 updated on plan of care and expected duration. Pain level reassessed. Patient states feeling better. 12:00 Reassessment: No changes from previously documented assessment. Patient and/or family ll1 updated on plan of care and expected duration. Pain level reassessed. 13:00 Reassessment: No changes from previously documented assessment. Patient and/or family ll1 updated on plan of care and expected duration. Pain level reassessed. Patient states feeling better. no SI/or HI feelings at this time. . Psych: 05:19 [place] Suicide Severity Screening: In the past month, have you wished you were wh or wished you could go to sleep and not wake up? Patient responds "No." "In the past month, have you actually had any thoughts of killing yourself?" Patient responds "no." "In your lifetime, have you ever done anything, started to do anything, or prepared to do anything to end your life?" Patient responds "no.". Subjective: Patient's mood is sad. Objective: Patient is cooperative. Interventions: Removed personal items and placed in bag. Patient placed in hospital gown. Searched person for dangerous items. Urine collected and sent for urine drug test. Belonging list filled out. Safety Checks: Personal items have been removed. Door is open. No visitors are present at this time. unknown. Commitment: Patient will be an involuntary commitment. Vital Signs: 04:02 BP 130 / 96; Pulse 133; Resp 18 S; Temp 98.4(O); Pulse Ox 96% on R/A; Weight 90.72 kg bb (R); Height 5 ft. 7 in. (170.18 cm) (R); Pain 0/10; 07:00 Pulse 105; Resp 18; Pulse Ox 98% ; bp 07:39 BP 128 / 103; Pulse 102; Resp 18; Pulse Ox 98% on R/A; Pain 0/10; ll1 09:14 BP 125 / 88; Pulse 100; Resp 18; Temp 97.9(TE); Pulse Ox 97% on R/A; mh5 10:03 BP 133 / 97; Pulse 97; Resp 20; Temp 97.6(TE); Pulse Ox 97% on R/A; mh5 11:20 BP 155 / 103; Pulse 86; Resp 16; Temp 97.5(TE); Pulse Ox 97% ; mh5 13:13 BP 139 / 96; Pulse 84; Resp 16; Temp 98.0; Pulse Ox 99% on R/A; Pain 0/10; ll1 04:02 Body Mass Index 31.32 (90.72 kg, 170.18 cm) ED Course: 04:02 Patient arrived in ED. mw2 04:04 Garrick Lemon MD is Attending Physician. tw4 04:05 Triage completed. bb 04:06 Arm band placed on Patient placed in an exam room, on a stretcher, on pulse oximetry. 05:05 Omaira Huddleston, RN is Primary Nurse. 05:18 Patient has correct armband on for positive identification. Placed in gown. Bed in low wh position. Side rails up X 1. Sitter at bedside. 07:00 Inserted 24 R FA started [employer] by search director. ll1 07:20 Denis Stallworth MD is Attending Physician. ll1 07:20 Simona Mejia RN is Primary Nurse. ll1 10:02 Warm blanket given. Diet tray given. engine monitor on. Pulse ox on. NIBP on. Sitter mh5 at bedside. 10:02 Repeat lab(s) drawn. sent to lab. 5 10:03 Safety checks: Items removed: yes. Door open/sign placed on door: yes. Family/friend mh5 present: no. Sitter present: Yes. 13:13 No provider procedures requiring assistance completed. IV discontinued, intact, ll1 bleeding controlled, No redness/swelling at site. Pressure dressing applied. Administered Medications: 07:10 Not Given (Other Intervention Used): NS 0.9% 1000 ml IV at 1 bolus Per protocol; 1000 bp mL bolus 07:38 Drug: Potassium Chloride 20 mEq Route: IV; Rate: calculated rate; Site: right forearm; ll1 10:20 Follow up: Response: No adverse reaction; IV Status: Completed infusion; IV Intake: ll1 100ml 07:38 Drug: Potassium Effervescent Tablet 50 mEq Route: PO; ll1 09:28 Follow up: Response: No adverse reaction bp 10:20 Follow up: Response: No adverse reaction; RASS: Alert and Calm (0) ll1 07:39 Drug: NS 0.9% 1000 ml Route: IV; Rate: 1 bolus; Site: right forearm; ll1 10:20 Follow up: Response: No adverse reaction; IV Status: Completed infusion; IV Intake: ll1 1000ml Intake: 10:20 IV: 100ml; Total: 100ml. ll1 10:20 IV: 1000ml; Total: 1100ml. 1 Outcome: 12:25 Discharge ordered by . rn 13:14 Discharged to home ambulatory. 1 13:14 Condition: stable 13:14 Discharge instructions given to patient, family, Instructed on discharge instructions, follow up and referral plans. Demonstrated understanding of instructions, follow-up care. 13:15 Patient left the ED. 1 Signatures: Radha Moore Brenda, RN RN bb Denis Stallworth MD MD rn Martinez, Maria 5 Omaira Huddleston, ALEXANDRA RN Abdi Hammer RN RN Garrick Lemon MD MD [facility] Simona Mejia RN RN ll1 Corrections: (The following items were deleted from the chart) 07:34 07:19 Primary Nurse role handed off by Omaira Huddleston RN bd aa5 09:17 09:14 BP 125 / 88; Pulse 100bpm; Resp 18bpm; Pulse Ox 97% RA; ll1 5
[2021-01-23 13:34] VITALS: BP 139/96; TEMP 98; O2SAT 99
== END 2021-01-23 13:15 | disposition home or self-care (01) ==
LOC: ER 03:52
DX: E86.0 Dehydration (principal); F25.9 Schizoaffective disorder, unspecified; I10 Essential (primary) hypertension
CPT/HCPCS: 36415; 80048; 80076; 80307; 80320; 80329; 81003; 84132; 85025; 85610; 85730; 93005; 96365; 96366; 99285; J3480; J7030

== ENCOUNTER 2021-01-29 22:50 | Emergency (ER) | payer SELFPAY ==
--- OUTSIDE RECORDS SUMMARY | 2021-01-29 22:52 | XMS REPORT | Continuity of Care Document ---
:1980 Author Organization [facility] t Address [address] [place] [address] [place] [id number] Care Team Providers Name Role Phone Unavailable Unavailable Unavailable Problems This patient has no known problems. Allergies, Adverse Reactions, Alerts This patient has no known allergies or adverse reactions. Medications This patient has no known medications. Procedures This patient has no known procedures. Results This patient has no known results.
[2021-01-30 00:04] LABS: Absolute Lymphocytes (CBC) 2.6 K/uL (0.7-4.9); Basophils % 0.4 % (0-1.3); Hematocrit 50.6 % (39.6-49.0); Lymphocytes % 17.2 % (15.3-44.8); MPV 8.8 fL (7.6-11.3); RBC Red Blood Cell Count 5.78 M/uL (4.33-5.43)
[2021-01-30 00:07] LABS: Protime INR 1.09
[2021-01-30 00:42] LABS: ALT/SGPT 38 U/L (12-78); AST/SGOT 17 U/L (15-37); Albumin 4.9 g/dL (3.4-5.0); Alkaline Phosphatase 95 U/L (45-117); BUN Blood Urea Nitrogen 50 mg/dL (7-18); Bicarbonate 30 mmol/L (21-32); Bilirubin Direct 0.2 mg/dL (0-0.2); Bilirubin Total 0.7 mg/dL (0.2-1.0); Glucose Level 102 mg/dL (74-106); Protein, Total 8.6 g/dL (6.4-8.2); Salicylates Level < 1.7 mg/dL (2.8-20); Sodium Level 145 mmol/L (136-145)
[2021-01-30 00:43] LABS: Potassium 2.5 mmol/L (3.5-5.1)
[2021-01-30] MEDS ORDERED: LORazepam 2 MG/ML VIAL ONE (01:00)
[2021-01-30] MEDS ORDERED: NA CHLORIDE 0.9% 1,000 ML ONE ×2 (01:17→09:04)
[2021-01-30] MEDS ORDERED: POTASSIUM 25 MEQ EFFERV TAB ONE (01:17)
[2021-01-30] MEDS ORDERED: HALOPERIDOL LACT 5 MG/ML INJ ONE (01:17)
[2021-01-30] MEDS ORDERED: KCL 20 MEQ/100 mL IVPB 20 MEQ/100 ML BAG IV ONE (01:17)
[2021-01-30 01:18] LABS: Lithium < 0.2 mmol/L (0.6-1.2)
[2021-01-30 03:43] LABS: Potassium 3.9 mmol/L (3.5-5.1)
--- NOTE | 2021-01-30 09:21 | ER ---
Nurse's Notes [facility] Name: Ravi Jaime Age: 40 yrs Sex: Male : 1980 Arrival Date: 01/29/2021 Time: 22:51 Bed 19 Private MD: Diagnosis: Schizophrenia Presentation: 01/29 22:55 Chief complaint: EMS states: brother of the patient called they reported when they got rr5 into his apartment the place is upside down, he is altered, confused but oriented to person, history of schizophrenia and they think he is not complaint with his medication came here before with the same complaint. 22:55 Coronavirus screen: unable to complete. Ebola Screen: Unable to complete the Ebola rr5 screening because:. Initial Sepsis Screen: Does the patient meet any 2 criteria? No. Patient's initial sepsis screen is negative. Does the patient have a suspected source of infection? No. Patient's initial sepsis screen is negative. Risk Assessment: Do you want to hurt yourself or someone else? Patient reports no desire to harm self or others. Onset of symptoms was January 29, 2021. 22:55 Method Of Arrival: EMS: [facility] rr5 22:55 Acuity: GERALDINE 2 rr5 Historical: - Allergies: 23:02 Unable to obtain; rr5 - Home Meds: 23:02 folic acid 1 mg Oral tab 1 tab once daily [Active]; lamotrigine 200 mg Oral tab once rr5 daily [Active]; lisinopril 10 mg Oral tab 1 tab once daily for Hypertension [Active]; lithium carbonate 300 mg Oral cap 1 cap AT NIGHT [Active]; omeprazole 40 mg Oral cpDR 1 cap once daily [Active]; lithium carbonate 450 mg Oral TbER 1 tab daily [Active]; quetiapine 50 mg Oral tab 1 tab [Active]; quetiapine 300 mg Oral tab 1 tab once daily [Active]; ramipril 5 mg Oral cap 1 cap once daily [Active]; Seroquel 100 mg Oral tab 1.5 tab AT NIGHT [Active]; sulfasalazine 500 mg Oral tab 1 tab BID [Active]; - PMHx: 23:02 Bipolar disorder; Hypertension; schizoaffective disorder; rr5 - Immunization history:: Adult Immunizations unknown. - Social history:: Smoking status: unknown. Screenin:20 Abuse screen: Denies threats or abuse. Denies injuries from another. Nutritional rr5 screening: No deficits noted. Tuberculosis screening: No symptoms or risk factors identified. Fall Risk IV access (20 points). Mental Status- Overestimates/Forgets Limitations (15 pts.). Total Hoffman Fall Scale indicates Low Risk Score (25-44 pts). Fall prevention measures have been instituted. Side Rails Up X 2 Placed close to Nursing Station 1:1 attendant Assigned to Pt. Frequent Obs/Assesments occuring As available Patient and Family Educated on Fall Prevention Program and strategies. Assessment: 01/30 00:02 General: Appears in no apparent distress. Behavior is anxious, phasing. Pain: Unable to rr5 use pain scale. Patient appears withdrawn. Neuro: Level of Consciousness is awake, alert, Oriented to person. Cardiovascular: Capillary refill < 3 seconds Patient's skin is warm and dry. Respiratory: Airway is patent Respiratory effort is even, unlabored, Respiratory pattern is regular, symmetrical. GI: Abdomen is round non-distended. : No signs and/or symptoms were reported regarding the genitourinary system. EENT: No signs and/or symptoms were reported regarding the EENT system. Derm: Skin is intact, is healthy with good turgor, Skin temperature is warm. Musculoskeletal: Capillary refill < 3 seconds. 00:50 Reassessment: keeps on phasing, trying ot remove his IV, provider aware with order made rr5 and carriedout. 01:30 Reassessment: for repeat laboratory after the potassium infusion as per hospitalist. rr5 01:41 Reassessment: Patient appears in no apparent distress at this time. resting eyes closed rr5 breathing spontaneously at room air. 03:15 Reassessment: Patient appears in no apparent distress at this time. repeat BMP done and rr5 sent. 04:20 Reassessment: Patient appears in no apparent distress at this time. Patient is alert, rr5 oriented x 3, equal unlabored respirations, skin warm/dry/pink. hospitalist talked to ED provider decided for discharge in the morning. 05:30 Reassessment: Patient appears in no apparent distress at this time. resting eyes closed rr5 breathing spontaneously at air vital signs taken and recorded. 06:45 Reassessment: Patient appears in no apparent distress at this time. for discharge once rr5 fully awake. as per ED provider. 07:00 Reassessment: RECD REPORT FROM KIRILL MORRIS. 40YO WM P/W AMS, H/O SAME 2/2 NON-COMPLIANCE bp WITH PSYCH MEDS. PT SLEEPING. TBDC WHEN AWAKE, ALERT AND WITH STEADY GAIT. 08:10 Reassessment: PT AWAKE, AMBULATORY WITH STEADY GAIT. Patient states symptoms have bp improved. 10:17 Reassessment: ATTEMPTING TO CONTACT FAMILY FOR TRANSPORT HOME, NO ANSWER AT THIS TIME. bp 10:43 Reassessment: PT PROVIDED WITH BUS PASS. bp Vital Signs: 01/29 22:55 BP 155 / 95; Pulse 90; Resp 16; Temp 98; Pulse Ox 99% ; rr5 23:53 Pulse 109; Resp 19; Pulse Ox 100% ; Weight 75 kg; rr5 01/30 03:44 BP 147 / 85; Pulse 90; Resp 16; Pulse Ox 98% ; rr5 04:21 BP 116 / 96; Pulse 95; Resp 17; Pulse Ox 100% ; rr5 06:00 BP 129 / 103; Pulse 90; Resp 16; Pulse Ox 99% ; rr5 07:00 BP 134 / 105; Pulse 94; Resp 16; Pulse Ox 100% ; bp 08:30 BP 137 / 97; Pulse 90; Resp 16; Pulse Ox 100% ; bp 10:00 BP 129 / 95; Pulse 93; Resp 17; Temp 98; Pulse Ox 100% ; bp ED Course: 01/29 22:51 Patient arrived in ED. mw2 22:56 Humberto Esposito NP is PHCP. pm1 22:56 Bon Herring MD is Attending Physician. pm1 22:56 Kirill Cota, ALEXANDRA is Primary Nurse. rr5 23:01 Triage completed. rr5 23:02 Arm band placed on right wrist. rr5 23:20 Patient has correct armband on for positive identification. Placed in gown. Bed in low rr5 position. 23:20 Inserted saline lock: 20 gauge in right antecubital area, using aseptic technique. rr5 ,using aseptic technique. inserted by mireille special effects technician Blood collected. 01/30 00:01 EKG done, by ED staff, reviewed by Humberto Esposito NP. rr5 07:33 Primary Nurse role handed off by Kirill Cota, RN bp 07:33 Abdi Hammer, ALEXANDRA is Primary Nurse. bp 08:53 Attending Physician role handed off by Bon Herring MD ma2 08:53 Jo Ann Lombardo MD is Attending Physician. ma2 10:15 No provider procedures requiring assistance completed. IV discontinued, intact, bp bleeding controlled, No redness/swelling at site. Pressure dressing applied. Administered Medications: 00:50 Drug: Ativan (LORazepam) 0.5 mg Route: IVP; Site: right antecubital; rr5 01:58 Follow up: Response: No adverse reaction rr5 00:59 CANCELLED (Physician Discretion): HALdol (haloperidol) 5 mg IVP once pm1 01:00 Drug: Potassium Effervescent Tablet 50 mEq Route: PO; rr5 02:00 Follow up: Response: No adverse reaction rr5 01:06 Drug: HALdol (as decanoate) 5 mg Route: IM; Site: right deltoid; rr5 02:00 Follow up: Response: No adverse reaction rr5 01:07 Drug: NS 0.9% 1000 ml Route: IV; Rate: 1000 ml; Site: right antecubital; rr5 03:00 Follow up: Response: No adverse reaction; IV Status: Completed infusion; IV Intake: rr5 1000ml 01:07 Drug: Potassium Chloride 20 mEq Route: IV; Rate: calculated rate; Site: right rr5 antecubital; 03:00 Follow up: Response: No adverse reaction; IV Status: Completed infusion; IV Intake: rr5 100ml 08:54 Drug: NS 0.9% 1000 ml Route: IV; Rate: 1 bolus; Site: right antecubital; bp Intake: 03:00 IV: 100ml; Total: 100ml. rr5 03:00 IV: 1000ml; Total: 1100ml. rr5 Outcome: 09:20 Discharge ordered by . ma2 10:17 Condition: stable bp 10:17 Discharge instructions given to patient, Instructed on discharge instructions, follow up and referral plans. Demonstrated understanding of 10:43 Discharged to home ambulatory, WITH BUS PASS bp 10:43 Patient left the ED. bp Signatures: Humberto Esposito WATER PLANT MAINTENANCE MECHANIC WATER PLANT MAINTENANCE MECHANIC pm1 Abdi Hammer, ALEXANDRA MORRIS bp Jo Ann Lombardo MD MD pr2 Tunde Baez 2 Kirill Cota, RN RN rr5
--- NOTE | 2021-01-30 09:21 | EDPHYS ---
Physician Documentation [facility] Name: Ravi Jaime Age: 40 yrs Sex: Male : 1980 Arrival Date: 01/29/2021 Time: 22:51 Bed 19 Private MD: ED Physician Jo Ann Lombardo HPI: 01/29 23:06 This 40 yrs old Male presents to ER via EMS with complaints of Altered Mental pm1 Status. 23:06 The patient presents with agitation. Onset: The symptoms/episode began/occurred today. pm1 Possible causes: lack of compliance with his medications for bipolar disorder and schizoaffective disorder. Associated signs and symptoms: The patient has no apparent associated signs or symptoms. Current symptoms: In the emergency department the patient's symptoms are unchanged from the initial presentation. Patient's baseline: Neuro: alert and fully oriented, Motor: no deficits, Ambulation: walks without assistance, Speech: normal. The patient has experienced similar episodes in the past, a few times. The patient has not recently seen a physician. 23:06 Brother called EMS after he found the patient with his house turned over. Patient pm1 reports that it was his dog that caused the mess. The patient does not like taking his medications because of the way they taste. 23:06 Patient denies homicidal or suicidal ideation. pm1 Historical: - Allergies: 23:02 Unable to obtain; rr5 - Home Meds: 23:02 folic acid 1 mg Oral tab 1 tab once daily [Active]; lamotrigine 200 mg Oral tab once rr5 daily [Active]; lisinopril 10 mg Oral tab 1 tab once daily for Hypertension [Active]; lithium carbonate 300 mg Oral cap 1 cap AT NIGHT [Active]; omeprazole 40 mg Oral cpDR 1 cap once daily [Active]; lithium carbonate 450 mg Oral TbER 1 tab daily [Active]; quetiapine 50 mg Oral tab 1 tab [Active]; quetiapine 300 mg Oral tab 1 tab once daily [Active]; ramipril 5 mg Oral cap 1 cap once daily [Active]; Seroquel 100 mg Oral tab 1.5 tab AT NIGHT [Active]; sulfasalazine 500 mg Oral tab 1 tab BID [Active]; - PMHx: 23:02 Bipolar disorder; Hypertension; schizoaffective disorder; rr5 - Immunization history:: Adult Immunizations unknown. - Social history:: Smoking status: unknown. ROS: 23:06 Constitutional: Negative for fever, chills, and weight loss, Eyes: Negative for injury, pm1 pain, redness, and discharge, ENT: Negative for injury, pain, and discharge, Neck: Negative for injury, pain, and swelling, Cardiovascular: Negative for chest pain, palpitations, and edema, Respiratory: Negative for shortness of breath, cough, wheezing, and pleuritic chest pain, Abdomen/GI: Negative for abdominal pain, nausea, vomiting, diarrhea, and constipation, Back: Negative for injury and pain, MS/Extremity: Negative for injury and deformity, Skin: Negative for injury, rash, and discoloration. 23:06 Neuro: Positive for altered mental status. Exam: 23:06 Constitutional: This is a well developed, well nourished patient who is awake, alert, pm1 and in no acute distress. Head/Face: Normocephalic, atraumatic. Eyes: Pupils equal round and reactive to light, extra-ocular motions intact. Lids and lashes normal. Conjunctiva and sclera are non-icteric and not injected. Cornea within normal limits. Periorbital areas with no swelling, redness, or edema. ENT: Nares patent. No nasal discharge, no septal abnormalities noted. Tympanic membranes are normal and external auditory canals are clear. Oropharynx with no redness, swelling, or masses, exudates, or evidence of obstruction, uvula midline. Mucous membranes moist. Cardiovascular: Regular rate and rhythm with a normal S1 and S2. No gallops, murmurs, or rubs. Normal PMI, no JVD. No pulse deficits. Respiratory: Lungs have equal breath sounds bilaterally, clear to auscultation and percussion. No rales, rhonchi or wheezes noted. No increased work of breathing, no retractions or nasal flaring. Abdomen/GI: Soft, non-tender, with normal bowel sounds. No distension or tympany. No guarding or rebound. No evidence of tenderness throughout. Back: No spinal tenderness. No costovertebral tenderness. Full range of motion. Skin: Warm, dry with normal turgor. Normal color with no rashes, no lesions, and no evidence of cellulitis. MS/ Extremity: Pulses equal, no cyanosis. Neurovascular intact. Full, normal range of motion. 23:06 Neuro: Orientation: to person, place, time, situation, Motor: is normal, moves all fours, Gait: is steady, at a normal pace, without difficulty. 23:06 Psych: Behavior/mood is cooperative, Affect is flat, Oriented to person, place, time, Patient has no thoughts/intents to harm self or others. Delusions/hallucinations are not present. Vital Signs: 22:55 BP 155 / 95; Pulse 90; Resp 16; Temp 98; Pulse Ox 99% ; rr5 23:53 Pulse 109; Resp 19; Pulse Ox 100% ; Weight 75 kg; rr5 01/30 03:44 BP 147 / 85; Pulse 90; Resp 16; Pulse Ox 98% ; rr5 04:21 BP 116 / 96; Pulse 95; Resp 17; Pulse Ox 100% ; rr5 06:00 BP 129 / 103; Pulse 90; Resp 16; Pulse Ox 99% ; rr5 07:00 BP 134 / 105; Pulse 94; Resp 16; Pulse Ox 100% ; bp 08:30 BP 137 / 97; Pulse 90; Resp 16; Pulse Ox 100% ; bp 10:00 BP 129 / 95; Pulse 93; Resp 17; Temp 98; Pulse Ox 100% ; bp MDM: 01/29 23:06 Patient medically screened. pm1 01/30 01:45 Physician consultation: Papito MCNEIL regarding admission, patient's condition, will pm1 repeat the patient's BMP and determine if the patient will need admission or can be discharged to home and will discuss with Dr. Pollard. 09:17 Differential Diagnosis: electrolyte abnormality, alcohol intoxication, overdose, volume ma2 depletion. Data reviewed: vital signs, nurses notes. Counseling: I had a detailed discussion with the patient and/or guardian regarding: the historical points, exam findings, and any diagnostic results supporting the discharge/admit diagnosis, the presence of at least one elevated blood pressure reading (>120/80) during this emergency department visit. Response to treatment: the patient's symptoms have markedly improved after treatment. ED course: signed out to be by dr. Pollard, patient has schezophrenia no si/hi or overt halucination, he was halucinating earlier however non emergent, he was given halodol and he has improved, he will follow up with his therapist, he had hypokalemia and dehydration that was corrected . 09:17 ED course: signed out to by dr. pollard as patient need to be discharged home after he wake ma2 up as no emergent condition exist or emergent need for inpatient psych.. 01/29 22:57 Order name: Acetaminophen pm1 01/29 22:57 Order name: Basic Metabolic Panel pm1 01/29 22:57 Order name: CBC with Diff pm01/29 22:57 Order name: ETOH Level pm01/29 22:57 Order name: Hepatic Function pm01/29 22:57 Order name: PT-INR; Complete Time: 00:14 pm1 01/29 22:57 Order name: Ptt, Activated; Complete Time: 00:14 pm1 01/29 22:57 Order name: Salicylate; Complete Time: 07:22 pm1 01/29 22:58 Order name: Acetaminophen Level; Complete Time: 00:52 EDMS 01/29 22:58 Order name: Basic Metabolic Panel; Complete Time: 00:52 EDMS 01/29 22:58 Order name: CBC with Automated Diff; Complete Time: 00:14 EDMS 01/29 22:58 Order name: Alcohol Serum/Plasma; Complete Time: 00:52 EDMS 01/29 22:57 Order name: EKG; Complete Time: 22:58 pm01/29 22:57 Order name: EKG - Nurse/Tech; Complete Time: 23:48 pm1 01/29 22:57 Order name: IV Saline Lock; Complete Time: 23:39 pm1 01/29 22:57 Order name: Labs collected and sent; Complete Time: 23:39 pm01/29 22:58 Order name: Liver (Hepatic) Function; Complete Time: 00:52 EDMS 01/30 01:03 Order name: [place]; Complete Time: 03:31 EDMS 01/30 01:36 Order name: SARS-COV-2 RT PCR; Complete Time: 07:22 EDMS 01/30 02:45 Order name: BMP; Complete Time: 07:22 rr5 01/30 01:49 Order name: Misc. Order: Order and obtain BMP after completion of K and NS, notify Papito/ lovely ERP of results; Complete Time: 03:44 Administered Medications: 00:50 Drug: Ativan (LORazepam) 0.5 mg Route: IVP; Site: right antecubital; rr5 01:58 Follow up: Response: No adverse reaction rr5 00:59 CANCELLED (Physician Discretion): HALdol (haloperidol) 5 mg IVP once pm1 01:00 Drug: Potassium Effervescent Tablet 50 mEq Route: PO; rr5 02:00 Follow up: Response: No adverse reaction rr5 01:06 Drug: HALdol (as decanoate) 5 mg Route: IM; Site: right deltoid; rr5 02:00 Follow up: Response: No adverse reaction rr5 01:07 Drug: NS 0.9% 1000 ml Route: IV; Rate: 1000 ml; Site: right antecubital; rr5 03:00 Follow up: Response: No adverse reaction; IV Status: Completed infusion; IV Intake: rr5 1000ml 01:07 Drug: Potassium Chloride 20 mEq Route: IV; Rate: calculated rate; Site: right rr5 antecubital; 03:00 Follow up: Response: No adverse reaction; IV Status: Completed infusion; IV Intake: rr5 100ml 08:54 Drug: NS 0.9% 1000 ml Route: IV; Rate: 1 bolus; Site: right antecubital; bp Disposition: 09: Co-signature as Attending Physician, Jo Ann Lombardo MD. ga2 Disposition: 01/30/21 09:20 Discharged to Home. Impression: Schizophrenia. - Condition is Stable. - Discharge Instructions: Schizophrenia. - Medication Reconciliation Form, Thank You Letter, Antibiotic Education, Prescription Opioid Use form. - Follow up: Private Physician; When: Tomorrow; Reason: Continuance of care. Signatures: Dispatcher [employer] EDIL Papito Gamez FNP-C RESIDENTIAL SUPPORT WORKER-Cla1 Humberto Esposito, BOARD LINING MACHINE OPERATOR BOARD LINING MACHINE OPERATOR pm1 Abdi Hammer, ALEXANDRA RN bp Jo Ann Lombardo MD MD ma2 Marshall Cota, RN RN rr5 Corrections: (The following items were deleted from the chart) 00:30 01/29 22:58 CORONAVIRUS+MR.LAB.BRZ ordered. EDMS EDMS 01/30 00:59 00:59 HALdol (haloperidol) 5 mg IVP once ordered. pm1 pm1 01:03 00:57 LITHIUM+C.LAB.BRZ ordered. EDMS EDMS 10:43 09:20 01/30/2021 09:20 Discharged to Home. Impression: Schizophrenia. Condition is bp Stable. Forms are Medication Reconciliation Form, Thank You Letter, Antibiotic Education, Prescription Opioid Use. Follow up: Private Physician; When: Tomorrow; Reason: Continuance of care. ma2
[2021-01-30 10:51] VITALS: TEMP 98
[2021-01-30 10:58] VITALS: O2SAT 100
[2021-01-30 11:01] VITALS: BP 129/95
== END 2021-01-30 10:43 | disposition home or self-care (01) ==
LOC: ER 22:50
DX: F20.9 Schizophrenia, unspecified (principal); Z20.822 Contact with and (suspected) exposure to COVID-19; F31.9 Bipolar disorder, unspecified; I10 Essential (primary) hypertension
CPT/HCPCS: 36415; 80048; 80076; 80178; 80320; 80329; 85025; 85610; 85730; 93005; 96365; 96366; 96372; 96375; 99284; J1630; J3480; J7030; U0003

== ENCOUNTER 2021-01-31 17:28 | Emergency (ER) | payer SELFPAY ==
--- OUTSIDE RECORDS SUMMARY | 2021-01-31 17:31 | XMS REPORT | Continuity of Care Document ---
:1980 Author Organization [facility] t Address [address] [place] [address] [place] [id number] Care Team Providers Name Role Phone Unavailable Unavailable Unavailable Problems This patient has no known problems. Allergies, Adverse Reactions, Alerts This patient has no known allergies or adverse reactions. Medications This patient has no known medications. Procedures This patient has no known procedures. Results This patient has no known results.
[2021-01-31 18:05] LABS: Absolute Lymphocytes (CBC) 1.3 K/uL (0.7-4.9); Basophils % 0.7 % (0-1.3); Hematocrit 44.9 % (39.6-49.0); Lymphocytes % 12.9 % (15.3-44.8); MPV 8.7 fL (7.6-11.3); RBC Red Blood Cell Count 5.13 M/uL (4.33-5.43)
[2021-01-31 18:09] LABS: Protime INR 1.19
[2021-01-31 18:17] LABS: ALT/SGPT 40 U/L (12-78); AST/SGOT 25 U/L (15-37); Albumin 4.4 g/dL (3.4-5.0); Alkaline Phosphatase 87 U/L (45-117); BUN Blood Urea Nitrogen 33 mg/dL (7-18); Bicarbonate 28 mmol/L (21-32); Bilirubin Direct 0.3 mg/dL (0-0.2); Bilirubin Total 0.9 mg/dL (0.2-1.0); Glucose Level 92 mg/dL (74-106); Protein, Total 7.5 g/dL (6.4-8.2); Sodium Level 147 mmol/L (136-145)
[2021-01-31] MEDS ORDERED: NA CHLORIDE 0.9% 1,000 ML ONE (18:28)
[2021-01-31] MEDS ORDERED: LORazepam 2 MG/ML VIAL ONE ×2 (19:06→23:15)
[2021-01-31] MEDS ORDERED: DIPHENHYDRAMINE 50 MG/ML VIAL ONE ×2 (19:06→23:15)
[2021-01-31] MEDS ORDERED: ZIPRASIDONE MESYLA 20 MG/VIAL IM ONE (19:06)
[2021-01-31] MEDS ORDERED: WATER FOR INJ,STERILE 10 ML ONE (19:07)
--- NOTE | 2021-01-31 20:54 | RAD REPORT ---
EXAM DESCRIPTION: CT - Head Brain Wo Cont - 01/31/2021 8:43 pm CLINICAL HISTORY: Alteration of awareness/confusion COMPARISON: 2019 TECHNIQUE: Computed axial tomography of the head was obtained. IV contrast was not requested. All CT scans are performed using dose optimization technique as appropriate and may include automated exposure control or mA/KV adjustment according to patient size. FINDINGS: An intracranial bleed is not seen . The ventricles are normal in caliber. No extra-axial fluid collection is noted. Fluid within the sinuses/ mastoids is not seen. IMPRESSION: No acute intracranial abnormality is seen. If patient's symptoms persist MRI of the bra in would be recommended.
[2021-01-31] MEDS ORDERED: LEVALBUTEROL 1.25 MG/3 ML NEB ONE (21:22)
[2021-01-31] MEDS ORDERED: KCL 20 MEQ/100 mL IVPB 20 MEQ/100 ML BAG IV ONE (21:30)
--- NOTE | 2021-01-31 23:00 | EDPHYS ---
Physician Documentation [facility] Name: Ravi Jaime Age: 40 yrs Sex: Male : 1980 Arrival Date: 01/31/2021 Time: 17:38 Bed 27 Private MD: ED Physician Devin Harris HPI: 01/31 17:45 This 40 yrs old Male presents to ER via EMS with complaints of Altered Mental cp Status. 17:45 The patient presents with confusion. Onset: The symptoms/episode began/occurred today. cp 17:45 Possible causes: alcohol. Associated signs and symptoms: The patient has no apparent cp associated signs or symptoms. 17:45 Current symptoms: In the emergency department the patient's symptoms are unchanged from cp the initial presentation, despite EMS interventions. Historical: - Allergies: 17:40 No Known Allergies; hb - PMHx: 17:40 Bipolar disorder; schizoaffective disorder; Hypertension; hb - Immunization history:: Adult Immunizations unknown. - Social history:: Smoking status: unknown. ROS: 17:47 Neuro: Positive for altered mental status. cp 17:47 Unable to obtain ROS due to altered mental status. Exam: 17:50 Constitutional: The patient appears in no acute distress, alert, awake, cp non-diaphoretic, non-toxic, well developed, well nourished. 17:50 Head/Face: Normocephalic, atraumatic. cp 17:50 Eyes: Pupils: equal, round, and reactive to light and accomodation, Conjunctiva: normal, no exudate, no injection, Sclera: no appreciated abnormality, Lids and lashes: appear normal, bilaterally. 17:50 ENT: External ear(s): are unremarkable, Nose: is normal, Mouth: Lips: moist, Oral mucosa: moist, Posterior pharynx: Airway: no evidence of obstruction, patent. 17:50 Neck: C-spine: vertebral tenderness, is not appreciated, crepitus, is not appreciated, ROM/movement: is normal, is supple, no meningismus, no nuchal rigidity. 17:50 Chest/axilla: Inspection: normal, Palpation: is normal, no crepitus, no tenderness. 17:50 Cardiovascular: Rate: tachycardic, Rhythm: regular. 17:50 Respiratory: the patient does not display signs of respiratory distress, Respirations: normal, no use of accessory muscles, no retractions, labored breathing, is not present, Breath sounds: are clear throughout, no decreased breath sounds. 17:50 Abdomen/GI: Inspection: abdomen appears normal, Palpation: abdomen is soft and non-tender, in all quadrants. 17:50 Neuro: Orientation: Not oriented to person, place, Mentation: slow to respond, unable to follow commands, Motor: moves all fours, strength is normal. 18:05 ECG was reviewed by the Attending Physician. cp Vital Signs: 18:02 BP 152 / 99; Pulse 111; Resp 17; Temp 97.9(TE); Pulse Ox 95% on R/A; Weight 70.31 kg tw2 (R); 19:54 BP 130 / 87; Pulse 93; Resp 16; Pulse Ox 98% on R/A; jb4 20:45 BP 140 / 91; Pulse 79; Resp 16; Pulse Ox 99% on R/A; jb4 21:45 BP 136 / 102; Pulse 74; Resp 16; Pulse Ox 100% on R/A; jb4 23:00 BP 136 / 76; Pulse 99; Resp 16; Pulse Ox 100% on R/A; jb4 02/01 07:39 BP 128 / 82; Pulse 80; Resp 16; Temp 97.6(TE); Pulse Ox 98% on R/A; mh5 MDM: 01/31 17:46 Patient medically screened. cp 18:15 Differential Diagnosis: electrolyte abnormality, alcohol intoxication, intracranial cp bleed, seizure, sepsis, volume depletion. 22:58 Data reviewed: vital signs, nurses notes. Counseling: I had a detailed discussion with gary the patient and/or guardian regarding: the historical points, exam findings, and any diagnostic results supporting the discharge/admit diagnosis, lab results, the need for outpatient follow up. 23:13 ED course: I discussed the patient with ALEXANDRA Carmona whom then evaluated the patient who gary is once again a x o x 1. 02/01 01:03 ED course: I discussed the patient with Burke Trejo, unable to admit due to [facility] psychiatric component. . 14:35 Physician consultation: was contacted at 14:30, regarding regarding transfer, [facility] patient's condition, accepting physician will be DR Walker. 01/31 17:41 Order name: Acetaminophen cp 01/31 17:41 Order name: Basic Metabolic Panel cp 01/31 17:41 Order name: CBC with Diff cp 01/31 17:41 Order name: ETOH Level cp 01/31 17:41 Order name: Hepatic Function cp 01/31 17:41 Order name: PT-INR cp 01/31 17:41 Order name: Ptt, Activated cp 01/31 17:41 Order name: Salicylate cp 01/31 17:41 Order name: Urine Drug Screen cp 01/31 18:10 Order name: CBC with Automated Diff; Complete Time: 18:37 EDMS 01/31 20:18 Interpretation: Normal except: WBC 10.20; PLT 271; ASIM% 78.4; LYM% 12.9. cp 01/31 18:16 Order name: Protime (+INR); Complete Time: 18:37 EDMS 01/31 18:16 Order name: PTT, Activated Partial Thromb; Complete Time: 18:37 EDMS 01/31 18:20 Order name: Basic Metabolic Panel; Complete Time: 18:37 EDMS 01/31 20:18 Interpretation: Normal except: NA 147; K 3.0; CL 111; BUN 33; GFR 64. cp 01/31 18:20 Order name: Liver (Hepatic) Function; Complete Time: 18:37 EDMS 01/31 20:19 Interpretation: Normal except: BILID 0.3. cp 01/31 18:20 Order name: Acetaminophen Level; Complete Time: 18:37 EDMS 01/31 18:20 Order name: Alcohol Serum/Plasma; Complete Time: 18:37 EDMS 01/31 19:02 Order name: Salicylates Level; Complete Time: 20:17 EDMS 01/31 20:17 Order name: CT Head Brain wo Cont cp 01/31 20:55 Order name: CT; Complete Time: 21:14 EDMS 01/31 21:15 Interpretation: Report reviewed. cp 01/31 23:40 Order name: BMP jmm 02/01 00:30 Order name: Urine Dipstick-Ancillary; Complete Time: 00:36 EDMS 02/01 01:15 Order name: Urine Drug Screen; Complete Time: 01:20 EDMS 02/01 01:15 Order name: Basic Metabolic Panel; Complete Time: 01:20 EDMS 01/31 17:41 Order name: EKG; Complete Time: 17:42 cp 01/31 17:41 Order name: EKG - Nurse/Tech; Complete Time: 19:54 cp 01/31 17:41 Order name: IV Saline Lock; Complete Time: 17:41 cp 01/31 17:41 Order name: Labs collected and sent; Complete Time: 17:51 cp 01/31 17:41 Order name: Urine Dipstick-Ancillary (obtain specimen); Complete Time: 00:51 cp 02/01 07:39 Order name: Diet Finger Food; Complete Time: 07:39 mh5 EC/18 18:05 Rate is 110 beats/min. Rhythm is regular. MS interval is normal. QRS interval is cp normal. QT interval is normal. Interpreted by me. Reviewed by me. Administered Medications: 18:11 Drug: NS 0.9% 1000 ml Route: IV; Rate: 1 bolus; Site: right antecubital; kg 02/01 00:05 Follow up: Response: No adverse reaction; IV Status: Completed infusion 01/31 18:45 Not Given (Duplicate Order): Ativan (LORazepam) 1 mg IM once tw2 18:45 Not Given (Duplicate Order): Benadryl (diphenhydrAMINE) 25 mg IM once tw2 18:56 Drug: Ativan (LORazepam) 1 mg Route: IVP; Site: right antecubital; kg 02/01 00:04 Follow up: Response: No adverse reaction; RASS: Alert and Calm (0) 01/31 18:56 Drug: Benadryl (diphenhydrAMINE) 25 mg Route: IVP; Site: right antecubital; kg 02/01 00:04 Follow up: Response: No adverse reaction 01/31 18:57 Drug: Geodon (ziprasidone) 10 mg Route: IM; Site: right deltoid; kg 02/01 00:05 Follow up: Response: No adverse reaction 01/31 21:30 Drug: Potassium Chloride 20 mEq Route: IV; Rate: calculated rate; Site: right jb4 antecubital; 02/01 00:04 Follow up: Response: No adverse reaction; IV Status: Completed infusion 01/31 23:10 Drug: Ativan (LORazepam) 1 mg Route: IVP; Site: right antecubital; jb4 02/01 00:04 Follow up: Response: No adverse reaction; RASS: Alert and Calm (0) 01/31 23:11 Drug: Benadryl (diphenhydrAMINE) 25 mg Route: IVP; Site: right antecubital; jb4 02/01 00:04 Follow up: Response: No adverse reaction 02:10 Drug: NS 0.9% 1000 ml Route: IV; Rate: 1 bolus; Site: right antecubital; 05:47 Follow up: Response: No adverse reaction; IV Status: Completed infusion 12:39 Follow up: IV Status: Completed infusion; IV Intake: 1000ml tr6 Disposition: 15:00 Chart complete. cp 16:48 Co-signature as Attending Physician, Devin Harris MD I agree with the assessment and [facility] plan of care. Disposition: 02/01/21 01:06 Transfer ordered to [facility]. Diagnosis is Unspecified psychosis not due to a substance or known physiological condition. - Reason for transfer: Higher level of care. - Accepting physician is DR Walker. - Condition is Stable. - Problem is an acute exacerbation. - Symptoms are unchanged. Signatures: Dispatcher [employer] EDMS Devin Harris MD MD cha Mickail, Joel, PA PA jmm Page, Corey, PA PA cp Roma Mckeon, RN ALEXANDRA Miley Zuleta RN RN 2 Tam Lynch RN RN jb4 Omaira Huddleston RN RN Shu Escobar RN RN tr6 Em Edward kg Corrections: (The following items were deleted from the chart) 01/31 17:47 17:46 The patient presents with confusion, cp cp 17:47 17:46 Onset: The symptoms/episode began/occurred today, cp cp 17:47 17:46 This 40 yrs old Male presents to ER via EMS with complaints of Altered cp Mental Status. cp 23:01 22:58 ED course: I spoke with the patient and is now a x o x 3. Has no SI or HI. States jmm he would like to follow up with his psychiatrist. . gary 23:01 22:59 01/31/2021 22:59 Discharged to Home. Impression: Altered mental status, gary unspecified. Condition is Stable. Forms are Medication Reconciliation Form, Thank You Letter, Antibiotic Education, Prescription Opioid Use. Follow up: Private Physician; When: 2 - 3 days; Reason: Recheck today's complaints, Continuance of care, Re-evaluation by your physician. [facility] 02/01 14:47 01:06 02/01/2021 01:06 Transfer ordered to Psych Facility. Diagnosis is Unspecified cp psychosis not due to a substance or known physiological condition. Reason for transfer: Higher level of care. Accepting physician is Psychiatry. Condition is Stable. Problem is an acute exacerbation. Symptoms are unchanged. [facility] 15:39 14:47 02/01/2021 01:06 Transfer ordered to Psych Facility. Diagnosis is Unspecified tr6 psychosis not due to a substance or known physiological condition. Reason for transfer: Higher level of care. Accepting physician is DR Walker. Condition is Stable. Problem is an acute exacerbation. Symptoms are unchanged. cp
--- NOTE | 2021-01-31 23:00 | ER ---
Nurse's Notes [facility] Name: Ravi Jaime Age: 40 yrs Sex: Male : 1980 Arrival Date: 01/31/2021 Time: 17:38 Bed 27 Private MD: Diagnosis: Unspecified psychosis not due to a substance or known physiological condition Presentation: 01/31 17:39 Chief complaint: EMS states: called out by his apartment complex management because sv they were concerned about his hygiene. On EMS arrival, pt was AMS, HR-110, BS WNL and A\\T\\Ox2 (p/p). Pt told EMS that he had been drinking alcohol. Coronavirus screen: At this time, unable to obtain information related to travel outside the [place] Ebola Screen: Unable to complete the Ebola screening because: The patient is disoriented. Onset of symptoms is unknown. 17:39 Method Of Arrival: EMS: [facility] sv 17:39 Acuity: GERALDINE 2 sv 18:05 Initial Sepsis Screen: Does the patient meet any 2 criteria? No. Patient's initial tw2 sepsis screen is negative. Does the patient have a suspected source of infection? No. Patient's initial sepsis screen is negative. Risk Assessment: Do you want to hurt yourself or someone else? Unable to obtain. Historical: - Allergies: 17:40 No Known Allergies; hb - PMHx: 17:40 Bipolar disorder; schizoaffective disorder; Hypertension; hb - Immunization history:: Adult Immunizations unknown. - Social history:: Smoking status: unknown. Screenin:02 Abuse screen: Denies threats or abuse. Nutritional screening: No deficits noted. tw2 Tuberculosis screening: No symptoms or risk factors identified. Fall Risk Secondary diagnosis (15 points) impaired mobility. Assessment: 17:45 General: Appears in no apparent distress. Behavior is agitated, anxious, uncooperative. hb Pain: Denies pain. Neuro: Level of Consciousness is awake, alert, obeys commands, confused, Oriented to person. Cardiovascular: Patient's skin is warm and dry. Respiratory: Respiratory effort is even, unlabored, Respiratory pattern is regular, symmetrical. GI: No signs and/or symptoms were reported involving the gastrointestinal system. : No signs and/or symptoms were reported regarding the genitourinary system. EENT: No signs and/or symptoms were reported regarding the EENT system. Derm: Skin is pink, warm \\T\\ dry. Musculoskeletal: No signs and/or symptoms reported regarding the musculoskeletal system. 18:20 Reassessment: No changes from previously documented assessment. Patient and/or family hb updated on plan of care and expected duration. Pain level reassessed. Sitter remains at bedside. 19:00 Reassessment: Pt is resting in bed with no s/s of pain or distress noted. Respirations jb4 are even and unlabored. 20:00 Reassessment: Patient appears in no apparent distress at this time. No changes from jb4 previously documented assessment. Patient and/or family updated on plan of care and expected duration. Pain level reassessed. 21:00 Reassessment: Patient appears in no apparent distress at this time. No changes from jb4 previously documented assessment. Patient and/or family updated on plan of care and expected duration. Pain level reassessed. 22:45 Reassessment: Pt is awake, alert and oriented to self only. Respirations are even and jb4 unlabored with no s/s of pain or distress noted. Pt does not follow commands. Provider notified. 23:30 Reassessment: Patient appears in no apparent distress at this time. No changes from jb4 previously documented assessment. Patient and/or family updated on plan of care and expected duration. Pain level reassessed. Report given to ALEXANDRA Castano. 02/01 00:30 Reassessment: Patient appears in no apparent distress at this time. No changes from previously documented assessment. Patient and/or family updated on plan of care and expected duration. Pain level reassessed. 01:45 Reassessment: Patient appears in no apparent distress at this time. Patient and/or wh family updated on plan of care and expected duration. Pain level reassessed. Pt laying in bed with eyes closed. sitter at bedside. 03:00 Reassessment: Patient appears in no apparent distress at this time. Patient and/or family updated on plan of care and expected duration. Pain level reassessed. Pt laying in bed with eyes closed. sitter at bedside. 03:06 Reassessment: [facility] assessing Pt, meeting via Ipad. 04:34 Reassessment: Diana from [facility] called to decline they do not have an bb appropriate bed at this time. 05:34 Reassessment: Elda with [facility] requesting pt's H\\T\\P be faxed to [phone] which was completed by [facility] instructional technology coach. 07:00 General: Behavior is anxious, flat, restless, pt pacing in room. sitter at bedside. . tr6 Pain: Denies pain. Neuro: Level of Consciousness is awake, needs frequent reminding. Cardiovascular: No deficits noted. Respiratory: No deficits noted. GI: No deficits noted. : No deficits noted. EENT: No deficits noted. Derm: No deficits noted. Musculoskeletal: No deficits noted. 07:00 Reassessment: pt picked up for transfer by EMS with clothing on. pajama pants, pajama tr6 shirt. pt does not have any other belongings or shoes. 12:00 Reassessment: pt requiring frequent reminding to stay in room. tr6 13:44 Reassessment: Report given to Dian at [facility]. aa5 Vital Signs: 01/31 18:02 BP 152 / 99; Pulse 111; Resp 17; Temp 97.9(TE); Pulse Ox 95% on R/A; Weight 70.31 kg tw2 (R); 19:54 BP 130 / 87; Pulse 93; Resp 16; Pulse Ox 98% on R/A; jb4 20:45 BP 140 / 91; Pulse 79; Resp 16; Pulse Ox 99% on R/A; jb4 21:45 BP 136 / 102; Pulse 74; Resp 16; Pulse Ox 100% on R/A; jb4 23:00 BP 136 / 76; Pulse 99; Resp 16; Pulse Ox 100% on R/A; jb4 02/01 07:39 BP 128 / 82; Pulse 80; Resp 16; Temp 97.6(TE); Pulse Ox 98% on R/A; mh5 ED Course: 01/31 17:38 Patient arrived in ED. hb 17:38 Bed in low position. Call light in reach. Sitter at bedside. tw2 17:39 Devin Pedraza PA is PHCP. cp 17:39 Denis Stallworth MD is Attending Physician. cp 17:39 Arm band placed on. hb 17:41 Triage completed. sv 18:02 Miley Zuleta, ALEXANDRA is Primary Nurse. tw2 22:04 PHCP role handed off by Devin Pedraza PA [facility] 22:04 Jiagr Johnson PA is PHCP. jm 22:28 Condom Catheter applied. jb4 23:30 Report given to ALEXANDRA Castano. jb4 23:30 No provider procedures requiring assistance completed. Patient admitted, IV remains in jb4 place. 02/01 01:03 Attending Physician role handed off by Denis Stallworth MD [facility] 01:03 Devin Harris MD is Attending Physician. jm 02:21 contacted [facility] Crisis Line spoke to Urszula to have a screener evaluate the mw2 patient. 05:42 nurse to nurse from [facility]. mw2 05:53 faxed over patient's covid result to [facility] [phone]. 2 06:22 doc to doc from [facility]. mw2 06:32 called [facility] to give admin approval spoke to Elda. She stated " [facility] electrical assembly supervisor told me to wait for the on coming shift to give approval, so we will give you a call after 7 AM.". 08:09 spoke with Rhonda at [facility], they are waiting on discharges. will call back bd around 10. 09:26 confirmed with [facility] that chart was recieved. bd 09:50 pt denied at [facility] due to no discharges today. bd 11:21 pt on wait list at [facility]. bd 11:53 Susan with [facility] called to notify us that she secured a bed and will bd have her intake nurse, Dian, call for nurse to nurse soon. Administered Medications: 01/31 18:11 Drug: NS 0.9% 1000 ml Route: IV; Rate: 1 bolus; Site: right antecubital; kg 02/01 00:05 Follow up: Response: No adverse reaction; IV Status: Completed infusion wh 01/31 18:45 Not Given (Duplicate Order): Ativan (LORazepam) 1 mg IM once tw2 18:45 Not Given (Duplicate Order): Benadryl (diphenhydrAMINE) 25 mg IM once tw2 18:56 Drug: Ativan (LORazepam) 1 mg Route: IVP; Site: right antecubital; kg 02/01 00:04 Follow up: Response: No adverse reaction; RASS: Alert and Calm (0) 01/31 18:56 Drug: Benadryl (diphenhydrAMINE) 25 mg Route: IVP; Site: right antecubital; kg 02/01 00:04 Follow up: Response: No adverse reaction 01/31 18:57 Drug: Geodon (ziprasidone) 10 mg Route: IM; Site: right deltoid; kg 02/01 00:05 Follow up: Response: No adverse reaction 01/31 21:30 Drug: Potassium Chloride 20 mEq Route: IV; Rate: calculated rate; Site: right jb4 antecubital; 02/01 00:04 Follow up: Response: No adverse reaction; IV Status: Completed infusion 01/31 23:10 Drug: Ativan (LORazepam) 1 mg Route: IVP; Site: right antecubital; [facility] 02/01 00:04 Follow up: Response: No adverse reaction; RASS: Alert and Calm (0) 01/31 23:11 Drug: Benadryl (diphenhydrAMINE) 25 mg Route: IVP; Site: right antecubital; [facility] 02/01 00:04 Follow up: Response: No adverse reaction 02:10 Drug: NS 0.9% 1000 ml Route: IV; Rate: 1 bolus; Site: right antecubital; 05:47 Follow up: Response: No adverse reaction; IV Status: Completed infusion 12:39 Follow up: IV Status: Completed infusion; IV Intake: 1000ml tr6 Intake: 12:39 IV: 1000ml; Total: 1000ml. tr6 Outcome: 01/31 22:59 Discharge ordered by MD. vega 23:30 Admitted to ER Hold. Please see [facility] for further documentation. 4 23:30 Condition: stable 23:30 Discharge instructions given to patient, Instructed on the need for admit, Demonstrated understanding of instructions. 02/01 01:06 ER care complete, transfer ordered by MD. vega 15:37 Transferred by ground EMS Note: [facility] tr6 15:37 Condition: stable 15:37 Discharge instructions given to EMS, Instructed on the need for transfer, Demonstrated understanding of 15:39 Patient left the ED. tr6 Signatures: Radha Moore Stephanie RN RN Jigar Guo PA PA jmm Ballard, Brenda, RN RN bb Senait Gastelum, RN RN aa5 Devin Pedraza PA PA cp Baxter, Heather, RN RN Song, Miley, RN RN 2 Tam Lynch, RN RN 4 Karena Aj [facility] Karo, Omaira, RN RN Sasha, Tunde 2 Shu Escobar, RN RN 6 Em Edward kg
[2021-02-01 00:30] LABS: Urine Blood Negative (Negative); Urine Glucose Negative (Negative); Urine Protein Negative (Negative)
[2021-02-01 01:15] LABS: Potassium 3.4 mmol/L (3.5-5.1)
[2021-02-01 01:15] LABS: Barbiturates NEGATIVE (NEGATIVE); Benzodiazepines NEGATIVE (NEGATIVE); Cocaine NEGATIVE (NEGATIVE); METHAMPHETAM NEGATIVE (NEGATIVE); Methadone NEGATIVE (NEGATIVE); Opiates NEGATIVE (NEGATIVE); Phencyclidine NEGATIVE (NEGATIVE); THC Cannibis NEGATIVE (NEGATIVE)
[2021-02-01] MEDS ORDERED: NA CHLORIDE 0.9% 1,000 ML ONE (02:30)
--- NOTE | 2021-02-01 08:43 | EKG ---
Test Date: 2021-01-31 Test Time: 18:01:30 Diaper Machine Tender: ZHAO MEASUREMENT RESULTS: Intervals: Rate: 110 AK: 134 QRSD: 72 QT: 368 QTc: 498 [place]: P: 67 AK: 134 QRS: 36 T: -40 INTERPRETIVE STATEMENTS: Sinus tachycardia Possible Left atrial enlargement T wave abnormality, consider inferior ischemia T wave abnormality, consider anterolateral ischemia Abnormal ECG Compared to ECG 01/29/2021 23:49:00 No significant changes Electronically Signed On 02-01-21 08:41:32 CDT by Avni Whitney
[2021-02-01 16:10] VITALS: BP 128/82; TEMP 97.6; O2SAT 98
== END 2021-02-01 15:39 ==
LOC: ER 17:28
DX: F29 Unspecified psychosis not due to a substance or known physiological condition (principal); F25.9 Schizoaffective disorder, unspecified; I10 Essential (primary) hypertension
CPT/HCPCS: 36415; 70450; 80048; 80076; 80307; 80320; 80329; 81003; 85025; 85610; 85730; 93005; 96361; 96365; 96366; 96372; 96375; 99285; J1200; J3480; J3486; J7030